=== PATIENT | female | born 1960 | race Caucasian/White ===

== ENCOUNTER → 2025-06-10 | Outpatient (CLI) | payer MEDICARE, OTHER, SELFPAY ==
--- NOTE | 2025-06-10 10:20 | CER_PTH ---
PATIENT: MARGARITO FERNANDEZ LOC: [facility] U#:[id number] AGE/SX: 65/F ROOM: RE06/10/[address]: Dr. Mignon Manzo DO : 1960 BED: DIS: 06/10/2025 SPEC #: [id number] RECD: 06/10/25 12:23 STATUS: EDDIE RUDDY #: [id number] HANSA: 06/10/25 10:[address]: Mignon Manzo DEPT: SURGICAL PATHOLOGY RECD BY: Colin Martinez Tissues: A - Uterine cervix, NOS Procedures: Surgery Specimen Level IV HEADER OPERATION: Polypectomy PRE-OP DIAGNOSIS: Cervical polyp TISSUE SUBMITTED: A- Cervical polyp MICROSCOPIC DIAGNOSIS A. Cervix, polyp, polypectomy: * Benign endocervical polyp. MICROSCOPIC DESCRIPTION Slides are reviewed. GROSS DESCRIPTION A. Received in formalin labeled the patient's name and date of is a 1.3 x 0.3 x 0.3 cm pink-red polypoid portion of tissue admixed with blood-tinged mucoid material and flecks of possible tissue. Entirely submitted in 1 cassette. [place] 06/10/2025 CPT:85068
--- NOTE | 2025-06-10 10:20 | CER_PTH ---
PATIENT: MARGARITO FERNANDEZ LOC: [facility] U#:[id number] AGE/SX: 65/F ROOM: RE06/10/[address]: Dr. Mignon Manzo DO : 1960 BED: DIS: 06/10/2025 SPEC #: [id number] RECD: 06/10/25 12:23 STATUS: EDDIE RUDDY #: [id number] HANSA: 06/10/25 10:[address]: Mignon Manzo DEPT: SURGICAL PATHOLOGY RECD BY: Colin Martinez Tissues: A - Uterine cervix, NOS Procedures: Surgery Specimen Level IV HEADER OPERATION: Polypectomy PRE-OP DIAGNOSIS: Cervical polyp TISSUE SUBMITTED: A- Cervical polyp MICROSCOPIC DIAGNOSIS A. Cervix, polyp, polypectomy: * Benign endocervical polyp. MICROSCOPIC DESCRIPTION Slides are reviewed. GROSS DESCRIPTION A. Received in formalin labeled the patient's name and date of is a 1.3 x 0.3 x 0.3 cm pink-red polypoid portion of tissue admixed with blood-tinged mucoid material and flecks of possible tissue. Entirely submitted in 1 cassette. [place] 06/10/2025 CPT:99220
[2025-06-14 15:09] LABS: HPV APTIMA, High Risk Negative (Negative)
== END | disposition home or self-care (01) ==
PROVIDERS: Visit Provider Obstetrics & Gynecology
DX: N84.1 Polyp of cervix uteri (principal); Z12.4 Encounter for screening for malignant neoplasm of cervix
CPT/HCPCS: 87624; 88175; 88305; G0145

== ENCOUNTER → 2025-06-28 | Outpatient (CLI) | payer MEDICARE, OTHER, SELFPAY ==
--- NOTE | 2025-06-28 16:15 | US_ITS ---
EXAM: US Pelvis Transabdominal and Transvaginal, Complete CLINICAL INDICATION: POLYP TECHNIQUE: Real-time complete transabdominal and transvaginal pelvic ultrasound with image documentation. Transvaginal imaging was used for better evaluation of the endometrium and adnexa. COMPARISON: No relevant prior studies available. FINDINGS: UTERUS/CERVIX: Uterus is anteverted. Multiple calculus in the uterus measuring up to 5 mm. The uterus measures 5.5 x 4.0 x 2.5 cm. The endometrial stripe measures 0.4 cm in thickness. RIGHT OVARY: Unremarkable. Normal blood flow. The right ovary measures 2.8 x 1.6 x 1.1 cm. LEFT OVARY: 4.8 cm left ovarian cyst. Normal blood flow. The left ovary measures 4.0 x 4.3 x 3.3 cm. FREE FLUID: No free fluid. BLADDER: Unremarkable as visualized. Wall is normal thickness for degree of distention. US/Pelvic (Non ) IMPRESSION: 4.8 cm left ovarian cyst. Reading Location: [id number]
--- OUTSIDE RECORDS SUMMARY | 2025-06-28 16:45 | XMS RPT_ITS | CCD ---
Author Organization [facility] Care Team Providers Care Company Accountant Name Role Phone Mireya Abraham PA-C Unavailable [phone] Mireya Abraham PA-C Unavailable [phone] Account Services Coordinator/Gynecology Prov. Unavailable Un available Darryl MOYA, Johanna Haider Unavailable Anna BOTTOM TURNING LATHE TENDER, Carrol Unavailable Hieu MOYA, Speedy Valencia Unavailable Gogoi (scribe), Hemanta Unavailable Unavaila ble Iqbal BOTTOM TURNING LATHE TENDER, Ros Unavailable Unavailable Deborah Lizzy C Unavailable Unavailable Scooby WOOD, Sindhu Unavailable Unavailable Dhruv BOTTOM TURNING LATHE TENDER, Emily Unavailable Unavailable Cristian MATHEW, Celestina Unavailable Berny MATHEW, Racquel Mac Unavailable Unavailable [place] BOTTOM TURNING LATHE TENDER, Darcie K Unavailable Unavai lable Gricelda [employer] HEAD INSPECTOR [employer] ADJUSTER, Chikis Unavailable Unavailable Stephy BOTTOM TURNING LATHE TENDER, Johanna M Unavailable Unavailab le [place] BOTTOM TURNING LATHE TENDER, Christina Ordaz Unavailable Unavailab le Vess BOTTOM TURNING LATHE TENDER, Neilee L Unavailable Unavailable Wengerd BOTTOM TURNING LATHE TENDER, Mignon Unavailable Unavailabl e Unavailable Unavailable Unavailable Unavailable General Surgery Provider Unavailable Unavail able Bryant MEDRANON, Kelly Unavailable Unavailabl Doris Pretty Unavailable Unavailable [facility] Attending Unavailable Doris Mcghee Unavailable Unavailable MIREYA ABRAHAM Consulting Unavailable DENILSON THOMAS Admitting Unavailable DENILSON THOMAS Primary Care Unavailable DENILSON THOMAS Attending Unavailable PROVIDER, UNKNOWN Consulting Unavailable MIREYA ABRAHAM Consulting Unavailable MIREYA ABRAHAM Attending Unavailable MIREYA ABRAHAM Admitting Unavailable MIREYA ABRAHAM Primary Care Unavailable PROVIDER, UNKNOWN Consulting Unavailable MIREYA ABRAHAM Consulting Unavailable MIREYA ABRAHAM Attending Unavailable MIREYA ABRAHAM Admitting Unavailable MIREYA ABRAHAM Primary Care Unavailable PROVIDER, UNKNOWN Consulting Unavailable KRISHNA HECTOR Attending Unavailable MIREYA ABRAHAM Consulting Unavailable MIREYA ABRAHAM Referring Unavailable KRISHNA HECTOR Admitting Unavailable KRISHNA HECTOR Primary Care Unavailable PROVIDER, UNKNOWN Consulting Unavailable Dr. Mignon Manzo DO Attending Physician Mignon Roberts Attending Mignon Hurtado Referring UnavailMireya Robin Primary Care Unavailable Mignon Roberts Attending Unavailabl e Mignon Roberts Attending Unavailabl jennifer Medications Current Medications Medication Drug Class(es) Dates Sig (Normalized) Sig (Original) sertraline 50 mg oral tablet (20 sources) Serotonin Reuptake Inhibitor Start: 06-10-2025 take 1 tablet by mouth once daily Start: 09-26-2024 sertraline 50 mg tablet ; 1.5 tablet(s) daily for 0 days Quantity: 45 {Tablet} Refills: 11 Ordered: 26-Sep-2024 JOSELITO Abraham Start: 26-Sep-2024 Start: 09-21-2023 sertraline 50 mg tablet ; 1.5 tablet(s) daily for 0 days Quantity: 45 {Tablet} Refills: 11 Ordered: 21-Sep-2023 JOSELITO Abraham Start: 21-Sep-2023 Start: 06-17-2023 sertraline 50 mg tablet ; 1.5 tablet(s) daily for 0 days Quantity: 45 {Tablet} Refills: 3 Ordered: 17-Jun-2023 JOSELITO Abraham Start: 17-Jun-2023 Completed/Discontinued Medications Medication Drug Class(es) Dates Sig (Normalized) Sig (Original) amoxicillin 500 mg oral capsule (20 sources) Penicillin-class Antibacterial Start: 09-27-2011 End: 10-07-2011 take 1 capsule by mouth three times daily AMOXICILLIN, 500MG (Oral Capsule) ; 1 Capsule three times daily for 10 days Quantity: 30 {Capsule} Refills: 0 Ordered: 27-Sep-2011 MD Johanna Andrews Start: 27-Sep-2011 End: 07-Oct-2011 Status: Inactive amoxicillin 875 mg / clavulanate 125 mg oral tablet (20 sources) Penicillin-class Antibacterial Start: 11-27-2018 End: 12-11-2018 take 1 tablet by mouth twice daily at mealtime Amoxicillin-Pot Clavulanate 875-125 MG Oral Tablet ; 1 (one) Tablet two times daily with food for 14 days Quantity: 28 {Tablet} Refills: 0 Ordered: 27-Nov-2018 Start: 27-Nov-2018 End: 11-Dec-2018 Status: Inactive azithromycin 250 mg oral tablet (20 sources) Macrolide Antimicrobial Start: 04-28-2015 End: 05-03-2015 AZITHROMYCIN, 250MG (Oral Tablet) ; 2 (two) Tablet today, then 1 tablet daily for 4 days for 5 days Quantity: 6 {Tablet} Refills: 0 Ordered: 28-Apr-2015 MD Johanna Andrews Start: 28-Apr-2015 End: 03-May-2015 Status: Inactive Start: 10-03-2010 End: 07-19-2011 ZITHROMAX Z-PINEDA, 250MG (Oral Tablet) ; 2 (two) Tabs day one, then one daily for 4 days for 0 days Quantity: 1 {Z-pack} Refills: 0 Ordered: 19-Jul-2011 QUINCY Thomas Start: 03-Oct-2010 End: 19-Jul-2011 Status: Inactive calcium citrate 1190 mg / cholecalciferol 0.005 mg oral tablet (20 sources) Vitamin D take 1 tablet by mouth once daily CITRACAL/VITAMIN D, 126-716BI-SHUL (Oral Tablet) ; 1 daily (250-200 MG-UNIT) Status: Inactive Comments: 630mg calcium/500IU vitamin d per two tabs and she takes 1 tab daily Comment on above: 630mg calcium/500IU vitamin d per two tabs and she takes 1 tab daily CENTRUM SILVER (Oral Tablet) (20 sources) take 1 tablet by mouth once daily CENTRUM SILVER (Oral Tablet) ; 1 daily Status: Inactive take 1 tablet by mouth once lorenzo y CENTRUM SILVER (Oral Tablet) ; 1 daily cephalexin 500 mg oral capsule (20 sources) Cephalosporin Antibacterial Start: 06-24-2010 End: 07-04-2010 take 1 capsule by mouth three times daily CEPHALEXIN, 500MG (Oral Capsule) ; 1 Capsule three times daily for 10 days Quantity: 30 {Capsule} Refills: 0 Ordered: 03-Oct-2010 MD Speedy Hagen Start: 24-Jun-2010 End: 04-Jul-2010 Status: Inactive lithium aspartate 20 mg oral capsule (20 sources) take 1 capsule by mouth once daily ESTROVEN ENERGY (Oral Capsule) ; 1 daily Status: Inactive metroNIDAZOLE 500 mg oral tablet (20 sources) Nitroimidazole Antimicrobial Start: 10-25-2018 End: 11-01-2018 take 1 tablet by mouth twice daily Flagyl 500 MG Oral Tablet ; 1 (one) Tablet BID for 7 days Quantity: 14 {Tablet} Refills: 0 Ordered: 25-Oct-2018 EARNESTINE Iqbal Start: 25-Oct-2018 End: 01-Nov-2018 Status: Inactive ondansetron 4 mg oral tablet (20 sources) Serotonin-3 Receptor Antagonist Start: 08-20-2013 End: 10-30-2013 take 1 tablet by mouth every six hours as needed ONDANSETRON HCL, 4MG (Oral Tablet) ; 1 (one) Tablet every six hours, as needed for 0 days Quantity: 20 {Tablet} Refills: 0 Ordered: 30-Oct-2013 QUINCY Thomas Start: 20-Aug-2013 End: 30-Oct-2013 Status: Inactive Comments: Medication taken as needed. for nausea Comment on above: Medication taken as needed. for nausea raNITIdine 75 mg oral tablet (20 sources) Histamine-2 Receptor Antagonist take 1 tablet by mouth once daily as needed ZANTAC 75, 75MG (Oral Tablet) ; 1 daily as needed (75 MG) Status: Inactive Comments: Medication taken as needed. usually uses if eats dinner later in the evening Comment on above: Medication taken as needed. usually uses if eats dinner later in the evening vitamin b6 200 mg oral tablet (20 sources) take 1 tablet by mouth once daily Vitamin B6 200 MG Oral Tablet ; 1 daily (200 MG) Status: Inactive Problems Active Problems Problem Classification Problem Date Documented Da te Episodic/Chronic Abdominal pain (2 sources) Unspecified abdominal pain; Translations: [Unspecified abdominal pain] Onset: 04-29-2025 Episodic Acute bronchitis (20 sources) Acute bacterial bronchitis; Translations: [Acute bronchitis due to other specified organisms] 04-28-2015 Episodic Adjustment disorders (20 sources) Stress; Translations: [Reaction to severe stress, unspecified] 03-22-2013 Chronic Allergic reactions (1 source) Allergic condition; Translations: [Allergy, unspecified, initial encounter] 06-10-2025 Episodic Anxiety disorders (20 sources) Anxiety; Translations: [Anxiety disorder, unspecified] 02-15-2022 Chronic Conditions associated with dizziness or vertigo (1 source) Benign paroxysmal vertigo, right ear; Translations: [Benign paroxysmal vertigo, right ear] Onset: 04-29-2025 Episodic Disorders of lipid metabolism (20 sources) Hyperlipidemia; Translations: [Hyperlipidemia, unspecified] 06-17-2023 Chronic Esophageal disorders (20 sources) Esophageal reflux; Translations: [Gastroesophageal reflux disease] 11-27-2018 Chronic Essential hypertension (20 sources) Hypertensive disorder; Translations: [Essential (primary) hypertension] 06-17-2023 Chronic Immunizations and screening for infectious disease (20 sources) Immunization due; Translations: [Encounter for immunization] 07-04-2024 Episodic Other bone disease and musculoskeletal deformities (20 sources) Osteopenia; Translations: [Other specified disorders of bone density and structure, unspecified site] 02-15-2022 Episodic Other circulatory disease (20 sources) Elevated blood pressure reading without diagnosis of hypertension 12-21-2012 Episodic Other ear and sense organ disorders (20 sources) Impacted cerumen of bilateral ears; Translations: [Impacted cerumen, bilateral] 10-23-2020 Episodic Other female genital disorders (20 sources) Polyp of cervix; Translations: [Polyp of cervix uteri] 02-15-2022 Episodic Other female genital disorders (20 sources) Vaginal discharge; Translations: [Other specified noninflammatory disorders of vagina] 11-27-2018 Episodic Other female genital disorders (20 sources) Hypertrophy of ovary; Translations: [Other noninflammatory disorders of ovary, fallopian tube and broad ligament] 10-30-2013 Episodic Other female genital disorders (1 source) Polyp of cervix uteri; Translations: [Polyp of cervix uteri] Onset: 06-25-2025 Episodic Other gastrointestinal disorders (20 sources) Occult blood in stools; Translations: [Other fecal abnormalities] 10-05-2023 Episodic Other screening for suspected conditions (not mental disorders or infectious disease) (20 sources) Patient encounter status; Translations: [Encounter for other screening for malignant neoplasm of breast] Onset: 06-17-2025 10-23-2020 Episodic Other upper respiratory disease (20 sources) Allergic rhinitis; Translations: [Allergic rhinitis, unspecified] 10-16-2018 Chronic Other upper respiratory infections (20 sources) Sinusitis; Translations: [Chronic sinusitis, unspecified] 10-23-2020 Chronic Other upper respiratory infections (20 sources) Acute pharyngitis; Translations: [Acute pharyngitis, unspecified] 08-20-2013 Episodic Ovarian cyst (7 sources) Unspecified ovarian cyst, unspecified side; Translations: [Unspecified ovarian cyst, left side] Onset: 04-29-2025 Episodic Comment on above: however, ultrasound unsure if this is of ovarian origin- MRI ordered. Residual codes; unclassified (20 sources) Body mass index 20-24 - normal; Translations: [Body mass index (BMI) 21.0-21.9, adult] 10-16-2018 Episodic Residual codes; unclassified (20 sources) Insomnia; Translations: [Insomnia, unspecified] 10-30-2013 Episodic Unclassified (20 sources) Number of Children 11-18-2017 Comment on above: 3. Unclassified (20 sources) Number of Pregnancies 11-18-2017 Comment on above: 4. Unclassified (20 sources) Vaginal deliveries 11-18-2017 Comment on above: 3. Unclassified (10 sources) Follow up for multiple chronic conditions - The patient is here for follow-up of anxiety, hyperlipidemia and hypertension. The patient always takes the prescribed medications. No side effects noted. The patient engages in regular exercise program 3-5 times per week. The patient's out of office blood pressure checks occur occasionally and dietary compliance is fairly good usually adhering to recommendations. The patient states that there is no recent angina or dyspnea, there are no vision changes or weakness, weight is unchanged, mood is unchanged and they do not have headaches. 10-26-2018 Unclassified (10 sources) [ADDITIONAL REASON] Well adult female - The patient feels well with no complaints, has good energy level and is sleeping poorly. The patient has a balanced diet and takes supplemental vitamins. The patient exercises every other day. The patient sleeps 7 hours per night. 10-26-2018 Unclassified (20 sources) Follow up for multiple chronic conditions - The patient is here for follow-up of hyperlipidemia, arthritis and other condition(s) (anxiety). The patient always takes the prescribed medications. No side effects noted. The patient engages in regular exercise program 3-5 times per week. The patient's out of office blood pressure checks occur frequently (114/74, 122/75, usually in the 110's to 130's systolic ). Note for Multiple chronic conditions follow-up": Patient reports feeling sick since this spring. When symptoms first occurred, patient thought it was seasonal allergies due to having a runny nose and sneezing. Will worsen at times. Reports having chills on 04/19/15 and 04/20/15 that made it hard for her to wear clothing, did not take her temp but thinks she was running a fever at that time. Patient's grandson had pinkeye about 2 weeks ago. Patient began to have crusty drainage, reddened scleras and was prescribed Tobramycin 0.3% eye drops. Continues to have some crusty drainage and was present this morning (mild, improved).Has been exposed to laryngitis. She was prescribed Augmentin for 10 days on 03/17/15. [place] a little better after treatment. Continues to have soreness and tenderness of the neck and ear pain, her ears are tender all the time, headache, sore throat, and a productive cough (from PND in throat; no wheeze or chest congestion). No nasal congestion. Has had runny nose. No sinus pressure.Has been taking OTC cold medication and Advil as well. Does tend to get allergies spring/fall. 04-28-2015 Unclassified (20 sources) Follow up for multiple chronic conditions - The patient is here for follow-up of hyperlipidemia and other condition(s) (anxiety). The patient always takes the prescribed medications. No side effects noted. The patient engages in regular exercise program 3-5 times per week (training for a 5K in May). The patient's out of office blood pressure checks occur frequently (117-120/73-77). Note for "Multiple chronic conditions follow-up": Patient states she is doing really well and has no concerns. 04-22-2014 Unclassified (20 sources) Follow up for multiple chronic conditions - The patient is here for follow-up of other condition(s) (elevated blood pressure, osteoporosis, anxiety). The patient always takes the prescribed medications. No side effects noted. The patient has an active lifestyle but no regular exercise program (slacked off in her routine exercise lately). Note for "Multiple chronic conditions follow-up": -Sertaline making big difference in her mood. She does have "sleepy times" mid morning and afternoon but they do go away. Sleeping better at night. 12-21-2012 Unclassified (13 sources) Well adult female - The patient feels well with no complaints, has good energy level and is sleeping poorly. The patient has a balanced diet and takes supplemental vitamins. The patient exercises every other day. The patient sleeps 7 hours per night. 10-26-2018 Unclassified (13 sources) [ADDITIONAL REASON] Follow up for multiple chronic conditions - The patient is here for follow-up of anxiety, hyperlipidemia and hypertension. The patient always takes the prescribed medications. No side effects noted. The patient engages in regular exercise program 3-5 times per week. The patient's out of office blood pressure checks occur occasionally and dietary compliance is fairly good usually adhering to recommendations. The patient states that there is no recent angina or dyspnea, there are no vision changes or weakness, weight is unchanged, mood is unchanged and they do not have headaches. 10-26-2018 Viral infection (20 sources) Viral disease; Translations: [Viral infection, unspecified] 08-20-2013 Episodic Past or Other Problems Problem Classification Problem Date Documented Da te Episodic/Chronic Unclassified (20 sources) Well adult female - The patient feels well with minor complaints. The patient is not using any method of contraception at this time. The patient has a balanced diet. The patient exercises every other day. The patient sleeps 7 hours per night. Note for "Well adult female": No concerns today. 02-15-2022 Unclassified (20 sources) Well adult female - The patient feels well with minor complaints (wax in her ears), has good energy level and is sleeping well. The patient has a balanced diet and takes supplemental vitamins. The patient exercises 3 - 4 times per week (6 days). The patient sleeps 8 hours per night. 10-23-2020 Unclassified (20 sources) Cold Symptoms - Symptoms include nasal congestion, ear pain (bilateral, left side is worse), sore throat, fever and headache, but do not include runny nose, dry cough or productive cough. The onset was gradual 6 week(s) ago. The symptoms occur constantly. The patient describes this as moderate in severity and unchanged. Current treatment includes NSAIDs. Note for "Upper respiratory infection": Has been sick most of the winter. 11-27-2018 Unclassified (20 sources) Well Adult, female - The patient feels well with no complaints, has good energy level and is sleeping well. The current method of contraception is: tubal ligation. The patient has a balanced diet and takes supplemental vitamins. The patient exercises 3 - 4 times per week. The patient sleeps 7 hours per night. Note for "Well Adult, female": No concerns today.Mood has been really good. 11-18-2017 Unclassified (20 sources) Well adult female - The patient feels well with no complaints, has good energy level and is sleeping well. The patient is not using any method of contraception at this time. The patient has a balanced diet and takes supplemental vitamins. The patient exercises weekly. The patient sleeps 6 hours per night. Note for "Well adult female": Weight gain is 10 pounds over the past year.Monitors BP occasionally and it is normal. 11-17-2016 Unclassified (20 sources) Well adult female - The patient feels well with no complaints, has good energy level and is sleeping well. The patient has a balanced diet and takes supplemental vitamins. The patient exercises daily. The patient sleeps 8 hours per night. Note for "Well adult female": -Has mammogram later today. reviewed by duy 10-28-2015 Unclassified (20 sources) Well adult female - The patient feels well with no complaints, has good energy level and is sleeping well. The patient has a balanced diet and takes supplemental vitamins. The patient exercises daily (21 day fix program since Sep). Note for "Well adult female": reviewed by duy 11-01-2014 Unclassified (20 sources) Well adult female - The patient feels well with no complaints, has good energy level and is sleeping well. The patient has a balanced diet and takes supplemental vitamins. The patient exercises 3 - 4 times per week (brought a log of her workouts; is planning to walk the [employer] [place] this coming fall). 10-30-2013 Unclassified (20 sources) Sore Throat - The onset of the sore throat has been acute and has been occurring for 1 day. Symptoms include sore throat, fever and cough (slight), but do not include headache, runny nose, nasal congestion or ear pain. Note for "Sore throat": feels very weak; has not been able to eat or drink much today; no nausea or vomitting, but is noting an upset stomach now. Is achy all over.Was fine this weekend, but this AM woke up with ANDRES and throat hurt. Symptoms worsened thru the day (weaker, upset stomach). Was exposed to grandkids who were ill (earache, sore throat, no fever). Ate a chicken sandwich Sat that didn't taste good. 08-20-2013 Unclassified (20 sources) talk - Here to talk to some situational stressors that are causing her anxiety. 07-27-2013 Unclassified (20 sources) stress - Here today to discuss whether or not it is time to resign from her job. Cites instances of "getting written up" for things she has always done in the past. Feels they want her to leave and are making it difficult for her so she will resign. Family wants her to resign. Causing increased anxiety. reviewed by duy 03-22-2013 Unclassified (20 sources) concerns about elevated blood pressure - patient feels like her heart is racing all the time, she has many stressors and feels like she is going to explode. She was here earlier today feeling this way with a pulse of only 85. Her symptoms have been occurring for 3 months, her has mentioned starting medication for anxiety or depression but she is afraid to take medicine and concerned she will only be masking the problem rather than solving it. reviewed by duy 11-24-2012 Unclassified (20 sources) Well Adult, female - The patient feels well with minor complaints (has several moles she wants you to look at), has good energy level and is sleeping well. Date of last mammogram : (appt for mammo on tuesday). The patient has a balanced diet and takes no supplemental vitamins & iron (takes calcium). The patient exercises 3 - 4 times per week. The patient sleeps 6 hours per night. Note for "Well Adult, female": reviewed by DUY 08-04-2012 Unclassified (20 sources) Cold Symptoms - Symptoms include ear pain (right is worse), sore throat (since [place] and has not gotten better.), general malaise (is achey all over), headache and facial pain, but do not include nasal congestion, runny nose, dry cough or fever. The onset was sudden 2 week(s) ago (but did have a cold [place] and s/t has never went away). The symptoms occur constantly. The patient describes this as moderate in severity and worsening. Current treatment includes NSAIDs. The patient has been exposed to an individual with similar symptoms. 09-27-2011 Unclassified (20 sources) Well Adult, female - The patient feels well with minor complaints (minor leg restlessness some evenings), has good energy level and is sleeping well. The patient has a balanced diet and takes supplemental vitamins. Patient exercises 3 - 4 times per week. Note for "Well Adult, female": Pt has no concerns today. 07-19-2011 Unclassified (20 sources) Cold Symptoms - Symptoms include runny nose, ear pain (bilateral), sore throat, productive cough, general malaise and headache, but do not include fever. The onset was sudden 5 day(s) ago. The symptoms occur constantly. The patient describes this as moderate in severity. Current treatment includes NSAIDs. The patient has been exposed to an individual with a cough. 10-03-2010 Unclassified (20 sources) Ear pain - The onset of the pain has been acute and has been occurring in a persistent pattern for 3 weeks. The course has been increasing. The pain is described as a moderate dull aching. The pain is described as being located in the inner ear. The pain is felt in the left ear. The symptoms have been associated with sore throat, while the symptoms have not been associated with fever. Note for "Ear pain": body aches and ANDRES. 06-24-2010 Unclassified (20 sources) MCR Well Adult - In general the patient feels well with no complaints, has good energy level and is sleeping well. The patient has a balanced diet and takes no supplemental vitamins & iron. The patient exercises weekly (2-3) and sleeps 7 hours per night. The patient denies having trouble with bathing, dressing/grooming, toileting, preparing meals and ambulating. The patient denies having trouble with grocery shopping, driving, use of telephone, housework, laundry, preparing/taking medications and finances. The patient performs monthly self breast exam. 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 09-21-2023 Unclassified (8 sources) MCR Well Adult - In general the patient feels well with no complaints, has good energy level and is sleeping well. The patient has a balanced diet. The patient exercises 3 - 4 times per week and sleeps 7 hours per night. The patient denies having trouble with bathing, dressing/grooming, toileting, preparing meals and ambulating. The patient denies having trouble with grocery shopping, driving, use of telephone, housework, laundry, preparing/taking medications and finances. The patient performs monthly self breast exam. 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 09-26-2024 Results Test Name Value Interpretation Reference Range Facility PAP IG HPV APTIMA 16/18,45on 06-14-2025 ADEQ Comment Normal . [facility] Comment on above: Order Comment: Speci men Comment: [id number] Specimen Comment: No. of containers..01 ThinPrep Vial Result Comment: Sati sfactory for evaluation. Endocervical and/or squamous metaplastic cells (endocervical component) are present. Performed By: #### L 7400.0280 #### [facility] [address] [place], [address] COMM . Normal . [facility] Comment on above: Order Comment: Speci men Comment: [id number] Specimen Comment: No. of containers..01 ThinPrep Vial Performed By: #### L 7400.0280 #### [facility] [address] [place], [place], [id number] COMMENT Comment Normal . [facility] Comment on above: Order Comment: Speci men Comment: [id number] Specimen Comment: No. of containers..01 ThinPrep Vial Result Comment: This liquid based ThinPrep(R) pap test was screened with the use of an image guided system. Performed By: #### L 7400.0280 #### [facility] [address] [place], [place], [id number] DIAG Comment Normal . [facility] Comment on above: Order Comment: Speci men Comment: [id number] Specimen Comment: No. of containers..01 ThinPrep Vial Result Comment: NEGA TIVE FOR INTRAEPITHELIAL LESION OR MALIGNANCY. CELLULAR CHANGES ASSOCIATED WITH ATROPHY ARE PRESENT. Performed By: #### L 7400.0280 #### [facility] [address] [place], [place], [address] [phone] HPV APTIMA, HR Negative Normal Negative [facility] Comment on above: Order Comment: Speci men Comment: [id number] Specimen Comment: No. of containers..01 ThinPrep Vial Result Comment: This nucleic acid amplification test detects fourteen high- risk HPV types (16,18,31,33,35,39,45,51,52,56,58,59,66,68) without differentiation. Performed By: #### L 7400.0280 #### [facility] [address] [place], [place], [id number] HPV Halie Rfx Comment Normal . [facility] Comment on above: Order Comment: Speci men Comment: [id number] Specimen Comment: No. of containers..01 ThinPrep Vial Result Comment: Crit eria not met, HPV Genotype not performed. Performed at: - [facility] [id number] Tower Dragline Operator: Maria R Harrison MD, Phone: [phone] Performed at: =G - [facility] [address] [id number] Tower Dragline Operator: Maria R Harrison MD, Phone: [phone] Performed By: #### L 7400.0280 #### [facility] [address] [place], [place], [id number] PAPSMR Comment Normal . [facility] Comment on above: Order Comment: Speci men Comment: [id number] Specimen Comment: No. of containers..01 ThinPrep Vial Result Comment: The Pap smear is a screening test designed to aid in the detection of premalignant and malignant conditions of the uterine cervix. It is not a diagnostic procedure and should not be used as the sole means of detecting cervical cancer. Both false-positive and false-negative reports do occur. Performed By: #### L 7400.0280 #### [facility] [address] [place], [address] PERFORM Comment Normal . [facility] Comment on above: Order Comment: Speci men Comment: [id number] Specimen Comment: No. of containers..01 ThinPrep Vial Result Comment: Igor Lopez Prop Drawer (ASCP) Performed By: #### L 7400.0280 #### [facility] [address] [place], [place], [address] Shoe Maker Office Visit Reporton 06-10-2025 Shoe Maker Office Visit Report [facility] [address], [address] [place] [address] OFFICE VISIT Date of Service: 06/10/25 MR#: [id number] Acct: [id number] Name: BONITA FERNANDEZ Rep #: [id number] : 1960 Provider: Dr. Mignon Velázquez DO Age/Sex: 65/F Location: [facility] Status: Signed Intake Vital Signs 06/10/25 10:04 Height 5 ft 2 in Weight: 110 lb 8 oz BMI 20.2 BP 148/90 H Intake Visit Reasons: Ovarian Cysts (JEWELL) Gang Tailer Required: No Is patient in pain?: No Allergies No Known Allergies Allergy (Unverified 06/10/25 09:56) Medications ???Medication ???Instructions ???Recorded ???Confirmed ???Type sertraline 50 mg tablet (Zoloft) 50 mg PO QDAY 06/10/25 06/10/25 Hi story Is last menstrual period known: No Post menopausal: Yes Patient : No : No PFSH Medical History (Updated 06/10/25 @ 10:[address] Mignon Manzo DO) Cervical polyp Anxiety Hyperlipidemia Osteopenia GERD (gastroesophageal reflux disease) Hypertension Allergies Surgical History (Updated 06/10/25 @ 10:07 by Doris Ogden) Fatty tumor S/P colonoscopy S/P tubal ligation Family History (Updated 06/10/25 @ 09:59 by Doris Ogden) Father Diabetes Heart disease CVA (cerebral vascular accident) Hypertension Grandmother Diabetes Uncle Diabetes Heart disease CVA (cerebral vascular accident) Grandfather CVA (cerebral vascular accident) Mother Hypertension Other Hodgkins lymphoma Social History (Updated 06/10/25 @ 10:04 by Doris Ogden) Smoking Status: Never smoker alcohol intake: never substance use type: does not use caffeine: Yes what type of physical activity do you participate in: walking and aerobics frequency: 3-4 times per week additional social history: -[facility] Ovarian Cysts (JEWELL) Details: BONITA FERNANDEZ is a 65 year old who presents for follow up ER visit at [facility] on may 31. She was mowing her lawn and felt sick. She then proceeded to vomit multiple times and her brought her to the ER where the only thing they could find was a small cyst on her liver and a 4 cm cystic structure posterior to the uterus of unknown origin. The endometrium is 5.2 mm with trace fluid. She denies bleeding or cramping. She has no discomfort. She can not remember when her last pap was. She is a new patient to our office and our hospital system. She states that she is feeling well now and recently had a colonoscopy that was normal. She thinks that this was all due to food poisoning from a ham that was frozen since then thawed for a week before eating. History 4 Elective abortions Hx Para 3 Spontaneous abortions Hx # Term Pregnancies Ectopic pregnancies Hx # Pregnancies Multiple births # of living children 3 Past Pregnancies Del. Date Name GA/Weeks Outcome Route Bth Weight Gen Labor Lgth Anesthesia Del Locatn Provider FOB Unknown Mignon Unknown Johanna Unknown Dennise ROS Const ROS Unobtainable: All systems reviewed are unremarkable except as noted in H Resp Resp: Reports system reviewed and no additional complaints, except as documented; Denies cough GI GI: Reports as per HPI Psych Psych: Reports system reviewed and no additional complaints, except as documented Exam Const General: cooperative, healthy appearing, comfortable and no acute distress Resp Effort Inspection: normal respiratory effort General: bimanual renal exam normal bilaterally External Female Exam: normal appearance of the urethra Urethra: normal appearance of the urethra Speculum Exam - Vagina: normal appearance of the vagina Speculum Exam - Cervix: mass pedunculated (looks polyp like ) Bimanual Exam- Adnexa, other: normal adnexae and normal Pelvic Support: normal Skin General: no rashes or lesions noted Psych Appearance: grossly normal Speech and Movement: speech and movement normal Office Procedures Biopsy Provider Documentation A cervical polyp was identified and cleansed with betadine. The polyp was grasped with a long thomas forceps device and spun until the polyp fell off. This was placed in a specimen container. No bleeding was noted. Alert Amy Yes Coding Level of Care Code Off vis,new,level 4 Diagnoses Ovarian cystic mass N83.209 Assessment and Plan Assessment and Plan (1) Ovarian cystic mass: Status: Acute Comment: however, ultrasound unsure if this is of ovarian origin- MRI ordered. Orders: Orders Biopsy Today N84.1 - Polyp of cervix uteri Plan plan to call patient with pathology of the polyp and pap done today ordering MRI to know more about the cystic pelvic structure. She denies complaints of pain or discomfo (more content not included)... Normal [facility] Surgery Specimen Level Jesi 06-10-2025 Surgery Specimen Level IV Patient Age/Sex Location Account Attending Physician BONITA FERNANDEZ 65/F [facility] [id number] Almita Joe Specimen: [id number] Received: 06/10/25 Status: EDDIE Ng Num: [id number] Spec Type: CERV Subm Dr: Dr. Mignon Manzo DO [facility] [place] OPERATION: Polypectomy PRE-OP DIAGNOSIS: Cervical polyp TISSUE SUBMITTED: A- Cervical polyp MICROSCOPIC DIAGNOSIS A. Cervix, "polyp", polypectomy: * Benign endocervical polyp. MICROSCOPIC DESCRIPTION Slides are reviewed. GROSS DESCRIPTION A. Received in formalin labeled the patient's name and date of is a 1.3 x 0.3 x 0.3 cm pink-red polypoid portion of tissue admixed with blood-tinged mucoid material and flecks of possible tissue. Entirely submitted in 1 cassette. [place] 06/10/2025 CPT:86296 Patient Age/Sex Location Account Attending Physician BONITA FERNANDEZ / [facility] [id number] Almita Joe Signed (signature on file) Dr. Kerry Chavez MD 06/19/25 1638 Normal [facility] Comment on above: Performed By: #### P SUIV #### [facility] [address] [place], [address] OPERATIVE PROCEDURES 05-30 OPERATIVE PROCEDURES [facility] OPERATIVE REPORT NAME ACCOUNT SEX AGE ADMIT DISCHARGE PT MED. RECORD# NUMBER DATE DATE TYPE BONITA FERNANDEZ [id number] F 65 05/29/25 2 S [id number] ROOM: [facility] DATE OF : 1960 DICTATING PHYSICIAN: Denilson Thomas DATE OF SURGERY: May 29, 2025 SURGEON: Denilson Thomas MD CORNICE MAKER: ANESTHESIOLOGIST: Kings Znuiga CRNA ANESTHETIC: PREOPERATIVE DIAGNOSIS: POSTOPERATIVE DIAGNOSIS: Screening colonoscopy, hemorrhoids, and rule out colitis. OPERATION PERFORMED: Colonoscopy with biopsy. COMPLICATIONS: ESTIMATED BLOOD LOSS: Minimal. SPECIMEN: Biopsy at 60 cm sent to Pathology. DISPOSITION: Stable, to recovery. INDICATIONS: Bonita Fernandez is a 65-year-old lady who presents for screening endoscopy. She had a history of a guaiac card which was positive. DESCRIPTION OF OPERATION: After informed consent and intravenous fluids, she was brought to endoscopy and placed on a padded gurney in the left lateral decubitus position with adequate padding at pressure points, and time-out verification was done. She was given sedation per Anesthesia with monitoring throughout. Digital examination showed external hemorrhoidal tags, normal tone, small internal tags and no discrete mass. The Olympus [id number] flexible colonoscope was introduced through the anal verge and carefully advanced, protecting the surrounding mucosa. The scope was advanced through the rectal vault and then through the sigmoid colon, Page 1 of 2 BONITA FERNANDEZ S Operative Report BONITA FERNANDEZ : 1960 which was very tortuous. There were a few scattered diverticula. The scope was advanced through the descending colon eventually, beyond the splenic flexure, transverse colon, hepatic flexure, and ascending colon toward the ileocecal junction. The passage was rather difficult because the colon was rather patulous and floppy and required repeated repositioning, irrigation and suctioning in a [id number] movement. The ileocecal area was viewed, and the landmarks were noted and documented. The prep was fair. With copious irrigation and suctioning the view improved. The ascending, transverse, descending and sigmoid colon were all carefully viewed. It should be noted that in the transverse, descending and sigmoid colon there were some areas of mild erythema. Biopsies were obtained with cold grasp forceps using standard technique at 60 cm to rule out colitis. The scope was carefully withdrawn through the sigmoid and into the rectal vault, retroflexed, rotated, straightened out, and withdrawn with decompression. There were internal and external hemorrhoids, but there was no tear, no fissure, and no fungating mass. No angiodysplasia. The polyps were seen. The patient tolerated the procedure well. She was awakened and sent to the recovery room in good condition. The case will be discussed with the patient when she is more awake and alert. Pathology will be followed as an outpatient by my office. Dictated By: Denilson Thomas MD 05/29/25 10:59 JOB #: [id number] Transcribed By: ludmila 05/29/25 11:21 Electronically signed by: E-Sign Dr. Denilson Thomas MD 05/30/25 16:59 Page 2 of 2 FERNANDEZ, BONITA S Operative Report Normal [facility] US PELVICon 05-17-[address] [address] Patient: BONITA FERNANDEZ Phone#: : 1960 Age: 65 Gender: F Pt. Type: Out Account: [id number] Location: 052 Ordering: MIREYA ABRAHAM Exam Date: 05/17/2025/7:55 Family Phys: Charge Code: 850720 Physician: Sullivan Order #: [id number] Dose#: PROCEDURE: PELVIC ULTRASOUND, TRANSABDOMINAL ENDOVAGINAL COMPARISON: [facility], CT, ABDOMEN/PELVIS W CON, 04/29/2025, 20:45. INDICATIONS: Ovarian cyst. TECHNIQUE: Pelvic ultrasound using transabdominal and endovaginal technique. FINDINGS: UTERUS: Size is 4.1 x 3.9 x 2.4 cm with unremarkable appearance. Endometrial thickness is 5.2 mm. Fluid is present in the endometrial canal ADNEXAE: The ovaries are difficult to visualize due to interfering bowel gas. There is a midline cystic structure measuring 4.1 x 2.8 x 4.7 centimeters. Origin cannot be determined with certainty. CUL-DE-SAC: Normal. No fluid or mass. OTHER: Negative. CONCLUSION: 1. Midline cystic structure posterior to the uterus with greatest dimension of 4.7 centimeters. Origin is difficult to determine with certainty. 2. Fluid is present in the endometrial canal. Dictated by: Eli Lou MD on 05/17/2025 at 10:50 Approved by: Eli Lou MD on 05/17/2025 at 10:56 Normal [facility] PELVIC ENDO VAGINALon [facility] ENDO VAGINAL [address] [address] Patient: BONITA FERNANDEZ Phone#: : 1960 Age: 65 Gender: F Pt. Type: Out Account: [id number] Location: 052 Ordering: MIREYA ABRAHAM Exam Date: 05/17/2025/7:55 Family Phys: Charge Code: [id number] Physician: Sullivan Order #: [id number] Dose#: PROCEDURE: PELVIC ULTRASOUND, TRANSABDOMINAL ENDOVAGINAL COMPARISON: [facility], CT, ABDOMEN/PELVIS W CON, 04/29/2025, 20:45. INDICATIONS: Ovarian cyst. TECHNIQUE: Pelvic ultrasound using transabdominal and endovaginal technique. FINDINGS: UTERUS: Size is 4.1 x 3.9 x 2.4 cm with unremarkable appearance. Endometrial thickness is 5.2 mm. Fluid is present in the endometrial canal ADNEXAE: The ovaries are difficult to visualize due to interfering bowel gas. There is a midline cystic structure measuring 4.1 x 2.8 x 4.7 centimeters. Origin cannot be determined with certainty. CUL-DE-SAC: Normal. No fluid or mass. OTHER: Negative. CONCLUSION: 1. Midline cystic structure posterior to the uterus with greatest dimension of 4.7 centimeters. Origin is difficult to determine with certainty. 2. Fluid is present in the endometrial canal. Dictated by: Eli Lou MD on 05/17/2025 at 10:50 Approved by: Eli Lou MD on 05/17/2025 at 10:56 Normal [facility] ED MED ADMINISTRATION DETAIL on 04-30-2025 ED MED ADMINISTRATION DETAIL Decommissioning Well Site Manager - BONITA FERNANDEZ, : 1960, , Medication Administration Record [address] [address] [id number] 04/29/2025 Patient: BONITA FERNANDEZ Sex: Female : 1960 Age: 65y MEASUREMENTS: Wt: 52.2 kg, Ht/Adrian: 62.0 in, BMI: 21.03 ALLERGIES: No known drug allergies Medication Ordered Medication Administration Date/Time IV NS 0.9 % 1000 19:50 04/29 IV NS 0.9 % 1000 mL started in bag#1 1000 mL at Started mL at 500 mL/hr 500 mL/hr via Site# 1. Allergies verified and confirmed 5 rights. IV 19:50 04/29/2025 (NOW x1) patency established. IV site checked: no pain, redness, or swelling. Stephanie Doty R.N. IV flushed thoroughly pre-medication administration. Information Stopped reviewed with patient including reason for taking this medication, 20:32 04/29/2025 signs of allergic reaction and precautions. Verbalizes Edd Palmer R.N. understanding. - 19:50 Stephanie Doty R.N. Scanned 20:32 04/29 Medication Discontinued: bag #1 completed. Total amount infused: 1000 mL. IV patency established. IV site checked: no pain, redness, or swelling. IV flushed thoroughly post-medication administration. - 20:32 Edd Palmer R.N. Zofran IVP 4 mg 19:48 04/29 Zofran IVP 4 mg given via Site# 1. Allergies verified Given (NOW x1) and confirmed 5 rights. IV patency established. IV site checked: no 19:48 04/29/2025 pain, redness, or swelling. IV flushed thoroughly pre-medication Stephanie Doty R.N. administration. IVP given by nurse practitioner. Information Scanned reviewed with patient including reason for taking this medication, signs of allergic reaction and precautions. Verbalizes understanding. - 19:48 Stephanie Doty R.N. 1 of 2 Decommissioning Well Site Manager - BONITA FERNANDEZ, : 1960, , Medication Ordered Medication Administration Date/Time LORazepam 19:59 04/29 LORazepam (Ativan) IVP 1 mg given via Site# 1. Given (Ativan) IVP 1 mg Allergies verified and confirmed 5 rights. IV patency established. IV 19:59 04/29/2025 (NOW x1) site checked: no pain, redness, or swelling. IV flushed thoroughly Stephanie Doty R.N. pre-medication administration. Information reviewed with patient Scanned and spouse including reason for taking this medication, signs of allergic reaction and precautions. Verbalizes understanding. Medication Wastage: 1 mg wasted. - 20:01 Stephanie Doty R.N. IV NS 0.9 % 1000 21:29 04/29 IV NS 0.9 % 1000 mL started in bag#2 1000 mL at Started mL at 500 mL/hr 500 mL/hr via Site# 1. Allergies verified and confirmed 5 rights. Via 21:29 04/29/2025 (NOW x1) dial-a-flow. IV patency established. IV site checked: no pain, Edd Palmer R.N. redness, or swelling. IV flushed thoroughly pre-medication Stopped administration. Information reviewed with patient including reason 23:22 04/29/2025 for taking this medication. Verbalizes understanding. - 21:30 Domingo Quiñonez R.N. Scanned 23:22 04/29 Medication Discontinued: bag #2. Total amount infused: 1000 mL. IV patency established. IV site checked: no pain, redness, or swelling. IV flushed thoroughly post-medication administration. - 23:52 Edd Palmer R.N. Meclizine (Antivert) 22:12 04/29 Meclizine (Antivert) PO 25 mg given. Allergies verified Given PO 25 mg (NOW x1) and confirmed 5 rights. Information reviewed with patient including 22:12 04/29/2025 reason for taking this medication. Verbalizes understanding. - Edd Palmer R.N. 22:13 Edd Palmer R.N. Scanned 2 of 2 Normal [facility] ED NURSES CLINICAL NOTEon ED NURSES CLINICAL NOTE Nurse Narrative - BONITA FERNANDEZ, : 1960, , Nurse Clinical Narrative [address] [address] [id number] 04/29/2025 19:32:00 Patient: BONITA FERNANDEZ Sex: Female : 1960 Age: 65y Disposition: Discharge to Home Disposition Decision Time: 23:07 04/29/2025 Departure Time: 23:04/29/2025 TRIAGE Arrived by private vehicle. Historian: (patient). Accompanied by family. Primary physician (Mireya Abraham). Triage time: 19:32 04/29/2025. Acuity: LEVEL 3. Chief Complaint: NAUSEA and VOMITING. This started today. 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 The patient has had nausea and vomiting. No diarrhea, constipation, abdominal pain or fever. -- 19:47 04/29/25 ADELAT Stephanie Doty R.N. 19:41 04/29/25. SEPSIS SCREEN: NEGATIVE. SIRS criteria negative: heart rate greater than 90. No possible sources of infection. -- 19:51 04/29/25 ADELAT Stephanie Doty R.N. 19:44 04/29/25. BP: 122/74 MAP: 90. HR: 106. RR: 24. O2 saturation: 100% Temperature: 97.5 F (temporal). Pain level now 0/10. -- 19:44 04/29/25 ADELAT Stephanie Doty R.N. Measurements: 19:44 04/29/25 Wt: 52.2 kg, Ht/Adrian: 62.0 in, BMI: 21.03 -- 19:44 04/29/25 ADELAT Stephanie Doty R.N. Medications: sertraline 50 mg tablet -- 19:56 04/29/25 ADELAT Stephanie Doty R.N. 1 of 4 Nurse Narrative - FERNANDEZ BONITA, : 1960, , Allergies: no known drug allergies -- 19:42 04/29/25 ADELAT Stephanie Doty R.N. Problems: no known problem -- 19:42 04/29/25 ADELAT Stephanie Doty R.N. Surgeries: no known surgical history -- 19:42 04/29/25 ADELAT Stephanie Doty R.N. History 19:32 04/29/25. SOCIAL HX: Never smoker. No alcohol use or drug use. The patient has not traveled outside the [place] Infectious disease exposure: No infectious disease exposure. ABUSE ASSESSMENT: The patient answered "yes" to the question(s) "Do you feel safe in your home?" and "no" to the question(s) "Are you afraid to go home?". SELF HARM ASSESSMENT: Self harm assessment was performed. The patient answered "no" to the question(s) "Have you recently felt down, depressed, or hopeless?" and "Do you have thoughts of harming or killing yourself?". FALL RISK ASSESSMENT: Fall risk assessment completed. No risk factors identified. -- 19:47 04/29/25 EDT Stephanie Doty R.N. Interventions 19:56 04/29/25. Advanced care plan. Patient does not have advanced directive. -- 19:56 04/29/25 EDT Stephanie Doty R.N. PHYSICAL ASSESSMENT 20:51 04/29/25. To room via wheelchair. ( pt shaking uncontrollable, vomiting, states she is dizzy. states he found on curled up on the bathroom floor. Pt states this started around 1600). GENERAL / NEURO / PSYCH: Oriented X 4. Appears in distress. 2 of 4 Nurse Narrative - BONITA FERNANDEZ, : 1960, , RESPIRATORY: Respirations not labored. Breath sounds within normal limits. -- 21:51 04/29/25 EDT Edd Palmer R.N. NURSING PROGRESS NOTES 19:38 04/29/25. Site #1 started in the left antecubital space with an 18g needle with aseptic technique and good blood return; 1 attempt. Blood drawn: rainbow set tube(s). Saline lock flushed with 10 mL saline. -- 19:48 04/29/25 EDT Stephanie Doty R.N. 19:41 04/29/25. ( EKG completed at 1939, shown to Dr. Hector). -- 19:41 04/29/25 EDT Georgette Thomas R.N. 19:48 04/29/25. Zofran IVP 4 mg given via Site# 1. Allergies verified and confirmed 5 rights. IV patency established. IV site checked: no pain, redness, or swelling. IV flushed thoroughly pre-medication administration. IVP given by nurse practitioner. Information reviewed with patient including reason for taking this medication, signs of allergic reaction and precautions. Verbalizes understanding. -- 19:48 04/29/25 EDT Stephanie Doty R.N. 19:50 04/29/25. IV NS 0.9 % 1000 mL started in bag#1 1000 mL at 500 mL/hr via Site# 1. Allergies verified and confirmed 5 rights. IV patency established. IV site checked: no pain, redness, or swelling. IV flushed thoroughly pre-medication administration. Information reviewed with patient including reason for taking this medication, signs of allergic reaction and precautions. Verbalizes understanding. -- 19:50 04/29/25 EDT Stephanie Doty R.N. 19:59 04/29/25. LORazepam (Ativan) IVP 1 mg given via Site# 1. Allergies verified and confirmed 5 rights. IV patency established. IV site checked: no pain, redness, or swelling. IV flushed thoroughly pre-medication administration. Information reviewed with patient and spouse including reason for taking this medication, signs of allergic reaction and precautions. Verbalizes understanding. Medication Wastage: 1 mg wasted. -- 20:01 04/29/25 EDT Stephanie Doty R.N. 20:30 04/29/25. Patient transported to CT by stretcher with monitor and radiolog (more content not included)... Normal [facility] ED ORDER SHEET (CPOE ONLY)on 04-30-2025 ED ORDER SHEET (CPOE ONLY) Order Sheet - BONITA FERNANDEZ, : 1960, , [place] [address] [id number] 04/29/2025 Patient: BONITA FERNANDEZ Sex: Female : 1960 Age: 65y MEASUREMENTS: Wt: 52.2 kg, Ht/Adrian: 62.0 in, BMI: 21.03 ALLERGIES: No known drug allergies MEDICATION/IV/DRIP/F LUID ORDERS Order Description Priority Entered Acknowledged Completed IV NS 0.9 %1000 mL at 500 19:36 04/29/2025 19:50 mL/hr (NOW x1) Krishna Hector, 04/29/2025 Lana Doty R.N. Zofran IVP4 mg (NOW x1) 19:36 04/29/2025 19:48 Krishna Hector, 04/29/2025 D.O. Crystal Lalitha, R.N. LORazepam (Ativan) IVP1 mg 19:54 04/29/2025 20:01 (NOW x1) Krishna Hector, 04/29/2025 Lana Doty R.N. IV NS 0.9 %1000 mL at 500 20:17 04/29/2025 20:23 21:30 mL/hr (NOW x1) Krishna Hector, 04/29/2025 04/29/2025 Domingo Short R.N. 1 of 3 Order Sheet - BONITA FERNANDEZ, : 1960, , Reason for ordering with alerts: Benefits outweigh risks --20:17 04/29/2025 Krishna Hector D.O. Meclizine (Antivert) PO25 mg 22:03 04/29/2025 22:05 22:13 (NOW x1) Krishna Hector, 04/29/2025 04/29/2025 Domingo Short, [email or web address] Reason for ordering with alerts: Benefits outweigh risks --22:03 04/29/2025 Krishna Hector D.O. LAB ORDERS Order Description Priority Entered Acknowledged Collected Completed CBC w Diff Stat Stat 19:36 04/29/2025 19:45 04/29/2025 Dayo Forrest D.O. CMP Stat Stat 19:36 04/29/2025 19:45 04/29/2025 Dayo Forrest D.O. Lipase Stat Stat 19:36 04/29/2025 19:46 04/29/2025 Dayo Forrest D.O. Urinalysis Stat Stat 19:36 04/29/2025 19:46 04/29/2025 21:23 04/29/2025 Dayo Forrest R.N. D.O. EKG - ED Stat Stat 20:03 04/29/2025 20:09 04/29/2025 Edd Forrest R.N. D.O. Troponin-I Stat Stat 20:03 04/29/2025 20:09 04/29/2025 Edd Forrest R.N. 2 of 3 Order Sheet - BONITA FERNANDEZ, : 1960, , Lana DIAGNOSTIC STUDY ORDERS Order Description Priority Entered Acknowledged Completed CT ABD/PEL w Cont Stat Stat 19:36 04/29/2025 19:46 20:31 Krishna Hector, 04/29/2025 04/29/2025 Lana Palmer R.N. Order Comments: 19:35 04/29/2025: Status: Not . Krishna Hector D.O. Reason for Study: Abdominal Distention,Abdominal Pain CT Brain wo Cont Stat Stat 20:12 04/29/2025 20:23 20:31 Krishna Hector, 04/29/2025 04/29/2025 Domingo Short R.N. Reason for Study: Altered Sense of Awareness STAFF ORDERS Order Description Priority Entered Acknowledged Collected Completed IV Saline Lock 19:36 04/29/2025 19:46 04/29/2025 Dayo Forrest D.O. [Electronically signed by Krishna Hector D.O. (04/30/2025 14:14 EDT)] 3 of 3 Normal [facility] ED PHYSICIAN CLINICAL REPORT on 04-30-2025 ED PHYSICIAN CLINICAL REPORT Narrative - BONITA FERNANDEZ, : 1960, , Physician Clinical Narrative [address] [address] [id number] 04/29/2025 19:32:00 Patient: BONITA FERNANDEZ Sex: Female : 1960 Age: 65y Disposition: Discharge to Home Disposition Decision Time: 23:07 04/29/2025 Departure Time: 23:25 04/29/2025 Measurements Wt: 52.2 kg, Ht/Adrian: 62.0 in, BMI: 21.03 Initial Vital Sign Measured Time BP MAP HR RR O2Sat ETCO2 Temp Pain GCS RTS 19:44 04/29/2025 122/74 90 106 20 100% 97.5 F 0 Time Seen: 19:24 04/29/2025. Arrived- By private vehicle. Historian- patient. Independent historian- family. HISTORY OF PRESENT ILLNESS Chief Complaint: ABDOMINAL PAIN. This started today patient came in with intractable nausea vomiting initially was kind of abdominal pain. But as she was here she stated she was mowing the grass today and she is doing circles and when she was doing the circles going around a tree she felt lightheaded. And then so she slowed them over down and then when she got off the Viki 4:00 a.m. she just started vomiting and had a spinning sensation. Was not lightheaded. And then for the next 3 hours she continued to vomit when she came in she was having nausea vomiting. REVIEW OF SYSTEMS Status: Not . 1 BONITA Carney, : 1960, , PAST HISTORY no known problem Surgeries: no known surgical history Medications: sertraline 50 mg tablet Allergies: no known drug allergies ADDITIONAL NOTES The nursing notes have been reviewed. PHYSICAL EXAM Appearance: Alert. Oriented X3. Anxious. Eyes: Pupils equal, round and reactive to light. Eyes normal inspection. ENT: Ears normal. Nose normal. Neck: Normal inspection. Neck supple. CVS: Tachycardia. Normal heart rhythm. Respiratory: No respiratory distress. Breath sounds normal. Abdomen: Soft and nontender. Back: Normal inspection. Skin: Skin warm and dry. Normal skin color. Normal skin turgor. Extremities: Extremities exhibit normal ROM. No lower extremity edema. Neuro: Oriented X 3. No motor deficit. LABS, X-RAYS, AND EKG Laboratory Tests: 2 of BONITA Carney, : 1960, , CBC + DIFF Final HANSA: 04/29/2025 19:38:00 EDT MsgRcvd: 04/29/2025 20:10 EDT Lab Test Result Reference Status Received 04/29/2025 20:10 CBC + DIFF Final EDT CBC-COMPLETE BLOOD COUNT 04/29/2025 20:10 WBC 9.2 x 10/UL 4.5 - 10.8 Final EDT 04/29/2025 20:10 RBC 5.02 x 10/UL 4.10 - 5.30 Final EDT 04/29/2025 20:10 HEMOGLOBIN 15.3 g/dl 12.0 - 16.0 Final EDT 04/29/2025 20:10 HEMATOCRIT 45.5 % 34.0 - 46.0 Final EDT 04/29/2025 20:10 MCV 91 fl 80 - 99 Final EDT 04/29/2025 20:10 MCH 30 pg 27 - 33 Final EDT 04/29/2025 20:10 MCHC 34 X10 3 32 - 36 Final EDT 04/29/2025 20:10 RDW/CV 13.3 % 12.0 - 15.6 Final EDT 04/29/2025 20:10 PLATELET 379 x10/UL 150 - 450 Final EDT 04/29/2025 20:10 MPV 7.1 fl 6.6 - 10.5 Final EDT AUTOMATED DIFFERENTIAL 3 of 24 [facility] - BONITA FERNANDEZ, : 1960, , 82.9 % 04/29/2025 20:10 NEUT % 46.0 - 76.0 Final Above high normal EDT 13.1 % 04/29/2025 20:10 LYMPH % 20.0 - 45.0 Final Below low normal EDT 04/29/2025 20:10 MONOS % 3.3 % 0.0 - 10.0 Final EDT 04/29/2025 20:10 EO % 0.4 % 0.0 - 7.0 Final EDT 04/29/2025 20:10 BASO % 0.3 % 0.0 - 2.0 Final EDT 04/29/2025 20:10 Lymph # 1.20 x10/UL 0.80 - 2.80 Final EDT 7.64 x10/UL 04/29/2025 20:10 Neut # 1.50 - 7.10 Final Above high normal EDT 04/29/2025 20:10 Som[place]ell # 0.30 x10/UL 0.20 - 1.00 Final EDT 04/29/2025 20:10 EO # 0.04 x10/UL 0.00 - 0.50 Final EDT 04/29/2025 20:10 Baso # 0.03 x10/UL 0.00 - 0.10 Final EDT 04/29/2025 20:10 MANUAL DIFF N/A New Order EDT 04/29/2025 20:10 MORPHOLOGY N/A New Order EDT CMP with eGFR Final HANSA: 04/29/2025 19:38:00 EDT MsgRcvd: 04/29/2025 20:30 EDT 4 of 24 Narrative - BONITA FERNANDEZ, : 1960, , Lab Test Result Reference Status Received 04/29/2025 20:30 CMP with eGFR Final EDT COMPREHENSIVE METABOLIC PANEL 04/29/2025 20:30 SODIUM 138 mmol/l 136 - 145 Final EDT 3.4 mmol/L 04/29/2025 20:30 POTASSIUM 3.5 - 5.1 Final Below low normal EDT 04/29/2025 20:30 CHLORIDE 99 mmol/L 98 - 107 Final EDT 19.5 mmol/L 04/29/2025 20:30 CO2 21.0 - 32.0 Final Below low normal EDT 138 mg/dl 04/29/2025 20:30 GLUCOSE 74 - 106 Final Above high normal EDT 04/29/2025 20:30 BUN 13 mg/dl 7 - 18 Final EDT 04/29/2025 20:30 CREATININE 0.92 mg/dl 0.55 - 1.02 Final EDT 04/29/2025 20:30 AST/SGOT 30 U/L 13 - (more content not included)... Normal [facility] ED SUPER BILLon 04-30-2025 ED SUPER BILL [facility] - BONITA FERNANDEZ, : 1960, , [address] [address] [id number] 04/29/2025 Patient: BONITA FERNANDEZ Sex: Female : 1960 Age: 65y Facility Professional Category Item Description Code Code Quantity Fee Total Drugs Normal Saline 565695 2 $0.00 $0.00 1000cc (360710) Nurse/E/M EMERGENCY 458602 1 $0.00 $0.00 DEPT VISIT HIGH SEVERITYFUNCJ (23984-49) Nurse/IV/IM/Infusion s Hydration 120306 3 $0.00 $0.00 additional hour (47245) Nurse/IV/IM/Infusion s IVP additional 050352 1 $0.00 $0.00 push (92227) Nurse/IV/IM/Infusion s IVP initial (02354) 971387 1 $0.00 $0.00 Nurse/Supplies [employer] Adult 9434992 1 $0.00 $0.00 (7264059) Grand $0.00 Total Providers Krishna Hector D.O. 1 of 2 [facility] - BONITA FERNANDEZ, : 1960, , Colton Sims D.O. Chief Complaint ABDOMINAL PAIN. Principal Diagnosis Acute vertigo of peripheral origin: benign positional vertigo on the right. Single simple left ovarian cyst. No ruptured ovarian cyst or torsion of ovary. ICD-10 Codes N83.299: Other ovarian cyst, unspecified side N83.202: Unspecified ovarian cyst, left side H81.11: Benign paroxysmal vertigo, right ear 2 of 2 Normal [facility] ED VISIT SUMMARYon ED VISIT SUMMARY Visit Overview - BONITA FERNANDEZ, : 1960, , Visit [address] [address] [id number] 04/29/2025 Patient: BONITA FERNANDEZ Sex: Female : 1960 Age: 65y 04/30/2025 02:14 PM EDT ED Arrival:19:32 04/29/2025 EDT Status:not Recent Travel:no Language:eng Adv Directive:No Isolation Status: Ethnicity:N Fall Risk:no risk Infectious Disease Exposure:no Measurements:5'2" / 157.5 Self-Harm Status:risk Sepsis Screen:negative cm 115.0 lb / 52.2 kg Chief Complaint:NAUSEA, 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, (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), 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 (Mireya Abraham ) ALLERGIES No Known Drug Allergies HOME MEDICATIONS sertraline 50 mg tablet PAST MEDICAL HISTORY / PROBLEMS None 1 of 3 Visit Overview - BONITA FERNANDEZ, : 1960, , PAST SURGICAL HISTORY No Surgeries SOCIAL HISTORY Smoking status: No Alcohol use: No Drug use: No ED COURSE MEDICATIONS GIVEN IN EMERGENCY DEPARTMENT 19:48 04/29/25 Zofran IVP 4 mg 19:50 04/29/25 IV NS 0.9 % 1000 mL 500 mL/hr 19:59 04/29/25 LORazepam (Ativan) IVP 1 mg 21:29 04/29/25 IV NS 0.9 % 1000 mL 500 mL/hr 22:12 04/29/25 Meclizine (Antivert) PO 25 mg IV SITE INFORMATION INTAKE OUTPUT REASSESMENT (most recent) 20:51 04/29/25. To room via wheelchair. ( pt shaking uncontrollable, vomiting, states she is dizzy. states he found on curled up on the bathroom floor. Pt states this started around 1600). GENERAL / NEURO / PSYCH: Oriented X 4. Appears in distress. RESPIRATORY: Respirations not labored. Breath sounds within normal limits. VITAL SIGNS First Vitals Last Vitals Temp 19:44 04/29/25 97.5 F Temp 22:42 04/29/25 BP 19:44 04/29/25 122/74 BP 22:42 04/29/25 HR 19:44 04/29/25 106 HR 22:42 04/29/25 81 RR 19:44 04/29/25 20 RR 22:42 04/29/25 O2 Sat 19:44 04/29/25 100% O2 Sat 22:42 04/29/25 97% Pain 19:44 04/29/25 0 Pain 22:42 04/29/25 2 of 3 Visit Overview - BONITA FERNANDEZ, : 1960, , First Vitals Last Vitals ETCO2 19:44 04/29/25 ETCO2 22:42 04/29/25 GCS 19:44 04/29/25 GCS 22:42 04/29/25 RTS 19:44 04/29/25 RTS 22:42 04/29/25 PROCEDURES NURSING INTERVENTIONS LABS / STUDIES LABS / STUDIES ORDERED CBC w Diff CMP CT ABD/PEL w Cont CT Brain wo Cont EKG - ED Lipase Troponin-I Urinalysis CLINICAL IMPRESSION ACUTE VERTIGO OF PERIPHERAL ORIGIN: BENIGN POSITIONAL VERTIGO ON THE RIGHT SINGLE SIMPLE LEFT OVARIAN CYST. NO RUPTURED OVARIAN CYST OR TORSION OF OVARY 3 of 3 Normal [facility] ED VITALS FLOW SHEETon 04-30 ED VITALS FLOW SHEET Vitals - BONITA FERNANDEZ, : 1960, , [place] [address] [id number] 04/29/2025 Patient: BONITA FERNANDEZ Sex: Female : 1960 Age: 65y Measurements Wt: 52.2 kg, Ht/Adrian: 62.0 in, BMI: 21.03 Measured Time BP MAP HR RR O2Sat ETCO2 Temp Pain GCS RTS 22:42 04/29/2025 81 97% 22:37 04/29/2025 80 93% 22:37 04/29/2025 146/84 104 84 22:32 04/29/2025 88 97% 22:27 04/29/2025 87 98% 22:22 04/29/2025 145/93 110 87 22:22 04/29/2025 89 96% 22:17 04/29/2025 83 98% 19:44 04/29/2025 122/74 90 106 20 100% 97.5 F 0 1 of 1 Normal [facility] CBC + DIFFon 04-29-2025 Baso # 0.03 x10EE3/UL Normal 0.00 - 0.10 [facility] Comment on above: Performed By: #### 2 16287 ####[facility],[address] [place] [address] Basophils/100 WBC (Bld) 0.3 % Normal 0.0 - 2.0 [facility] Comment on above: Performed By: #### 2 03097 ####[facility],[address] [place] [address] CBC + DIFF Normal [facility] Comment on above: Result Comment: CBC- COMPLETE BLOOD COUNT Performed By: #### 2 92401 ####[place] [address] EO # 0.04 x10EE3/UL Normal 0.00 - 0.50 [facility] Comment on above: Performed By: #### 2 67962 ####[place] [address] Eosinophils/100 WBC (Bld) 0.4 % Normal 0.0 - 7.0 [facility] Comment on above: Performed By: #### 2 56181 ####[place] [address] Erythrocyte distribution width (RBC) [Ratio] 13.3 % Normal 12.0 - 15.6 [facility] Comment on above: Performed By: #### 2 59037 ####[place] [address] Hematocrit (Bld) [Volume fraction] 45.5 % Normal 34.0 - 46.0 [facility] Comment on above: Performed By: #### 2 51805 ####[place] [address] Hemoglobin (Bld) [Mass/Vol] 15.3 g/dL Normal 12.0 - 16.0 [facility] Comment on above: Performed By: #### 2 18608 ####[place] [address] Lymph # 1.20 x10EE3/UL Normal 0.80 - 2.80 [facility] Comment on above: Performed By: #### 2 34332 ####[facility],[address] [place] [address] Lymphocytes/100 WBC (Bld) 13.1 % Low 20.0 - 45.0 [facility] Comment on above: Performed By: #### 2 93899 ####[facility],[address] [place] [address] MANUAL DIFF N/A Normal [facility] Comment on above: Performed By: #### 2 69940 ####[facility],[address] [place] [address] MCH (RBC) [Entitic mass] 30 pg Normal 27 - 33 [facility] Comment on above: Performed By: #### 2 00167 ####[place] [address] MCHC 34 X10 3 Normal 32 - 36 [facility] Comment on above: Performed By: #### 2 77679 ####[place] [address] MCV (RBC) [Entitic vol] 91 fL Normal 80 - 99 [facility] Comment on above: Performed By: #### 2 43374 ####[place] [address] Somervell # 0.30 x10EE3/UL Normal 0.20 - 1.00 [facility] Comment on above: Performed By: #### 2 08263 ####[place] [address] MONOS % 3.3 % Normal 0.0 - 10.0 [facility] Comment on above: Performed By: #### 2 14005 ####[place] [address] Morphology Riaz (Bld) [Interp] N/A Normal [facility] Comment on above: Performed By: #### 2 33877 ####[place] [address] Neut # 7.64 x10EE3/UL High 1.50 - 7.10 [facility] Comment on above: Performed By: #### 2 44532 ####[facility],[address] [place] [address] Neutrophils/100 WBC (Bld) 82.9 % High 46.0 - 76.0 [facility] Comment on above: Performed By: #### 2 31073 ####[facility],[address] [place] [address] PLATELET 379 x10EE3/UL Normal 150 - 450 [facility] Comment on above: Performed By: #### 2 97467 ####[facility],[address] [place] [address] Platelet mean volume (Bld) [Entitic vol] 7.1 fL Normal 6.6 - 10.5 [facility] Comment on above: Result Comment: AUTO MATED DIFFERENTIAL Performed By: #### 2 94818 ####[facility],[address] [place] [address] RBC 5.02 x 10EE6/UL Normal 4.10 - 5.30 [facility] Comment on above: Performed By: #### 2 04179 ####[facility],[address] [place] [address] WBC 9.2 x 10EE3/UL Normal 4.5 - 10.8 [facility] Comment on above: Performed By: #### 2 47783 ####[facility],[address] [place] [address] CMP with eGFRon 04-29-2025 AGE 65 years Normal [facility] Comment on above: Performed By: #### 2 84786 ####[facility],[address] [place] [address] Albumin [Mass/Vol] 4.3 g/dL Normal 3.4 - 5.0 [facility] Comment on above: Performed By: #### 2 81160 ####[facility],[address] [place] [address] Albumin/Globulin [Mass ratio] 1.1 {ratio} Normal 0.9 - 1.6 [facility] Comment on above: Performed By: #### 2 23097 ####[facility],[address] [place] [address] ALK PHOS 103 U/L Normal 46 - 116 [facility] Comment on above: Performed By: #### 2 21763 ####[facility],[address] [place] [address] ALT [Catalytic activity/Vol] 25 U/L Normal 16 - 63 [facility] Comment on above: Performed By: #### 2 96323 ####[facility],[address] [place] [address] Anion gap [Moles/Vol] 23 mmol/L High 10 - 20 [facility] Comment on above: Performed By: #### 2 54953 ####[facility],[address] [place] [address] AST [Catalytic activity/Vol] 30 U/L Normal 13 - 39 [facility] Comment on above: Performed By: #### 2 19236 ####[facility],[address] [place] [address] B/C RATIO 14 ratio Normal 0 - 30 [facility] Comment on above: Performed By: #### 2 72278 ####[facility],[address] [place] [address] Bilirubin [Mass/Vol] 0.7 mg/dL Normal 0.2 - 1.0 [facility] Comment on above: Performed By: #### 2 33590 ####[facility],[address] [place] [address] Calcium [Mass/Vol] 9.5 mg/dL Normal 8.5 - 10.1 [facility] Comment on above: Performed By: #### 2 62261 ####[facility],[address] [place] [address] Chloride [Moles/Vol] 99 mmol/L Normal 98 - 107 [facility] Comment on above: Performed By: #### 2 08196 ####[facility],[address] [place] [address] CMP with eGFR Normal [facility] Comment on above: Result Comment: COMP REHENSIVE METABOLIC PANEL Performed By: #### 2 21388 ####[facility],[address] [place] [address] CO2 [Moles/Vol] 19.5 mmol/L Low 21.0 - 32.0 [facility] Comment on above: Performed By: #### 2 53896 ####[facility],[address] [place] [address] Creatinine [Mass/Vol] 0.92 mg/dL Normal 0.55 - 1.02 [facility] Comment on above: Performed By: #### 2 26646 ####[facility],[address] [place] [address] GFR/1.73 sq M.predicted among non-blacks MDRD (S/P/Bld) [Vol rate/Area] mL/min/{1.73_m2} Normal 60 - 999 [facility] Comment on above: Performed By: #### 2 19808 ####[facility],[address] [place], [place] [id number] Result Comment: ACCO RDING TO THE NATIONAL KIDNEY DISEASE EDUCATION PROGRAM(NKDE), A NORMAL eGFR IS A VALUE GREATER THAN OR EQUAL TO 60 ML/MIN/1.73 SQ METERS. CHRONIC KIDNEY DISEASE: <60mL/MIN/1.73 SQ METERS KIDNEY FAILURE: <15mL/MIN/1.73 SQ METERS THIS TEST SHOULD ONLY BE USED FOR PATIENTS 18 YEARS OF AGE AND OLDER. Globulin (S) [Mass/Vol] 3.8 g/dL Normal 1.5 - 3.8 [facility] Comment on above: Performed By: #### 2 75061 ####[facility],[address] [place] [address] Glucose [Mass/Vol] 138 mg/dL High 74 - 106 [facility] Comment on above: Performed By: #### 2 85088 ####[facility],[address] [place] [address] Potassium [Moles/Vol] 3.4 mmol/L Low 3.5 - 5.1 [facility] Comment on above: Performed By: #### 2 33904 ####[facility],[address] [place] [address] Protein [Mass/Vol] 8.1 g/dL Normal 6.4 - 8.2 [facility] Comment on above: Performed By: #### 2 31320 ####[facility],[address] [place] [address] Sodium [Moles/Vol] 138 mmol/L Normal 136 - 145 [facility] Comment on above: Performed By: #### 2 66662 ####[facility],[address] [place] [address] Urea nitrogen [Mass/Vol] 13 mg/dL Normal 7 - 18 [facility] Comment on above: Performed By: #### 2 35788 ####[facility],[address] [place] [address] ABDOMEN/PELVIS [facility] 2024 CT ABDOMEN/PELVIS [place] [address] Patient: BONITA FERNANDEZ Phone#: : 1960 Age: 65 Gender: F Pt. Type: ER Account: [id number] Location: [facility] Ordering: KRISHNA HECTOR Exam Date: 04/29/2025/20:45 Family Phys: MIREYA ABRAHAM Charge Code: 182500 Physician: Sullivan Order #: [id number] Dose#: 10.2 mGy PROCEDURE: CT ABDOMEN/PELVIS WITH CONTRAST COMPARISON: None. INDICATIONS: Abdominal pain and nausea. TECHNIQUE: After obtaining the patient's consent, CT images were created with non-ionic intravenous contrast material. All CT scans at this facility use dose modulation, iterative reconstruction, and/or weight based dosing when appropriate to reduce radiation dose to as low as reasonably achievable. IV CONTRAST: Omnipaque 350,80ml TOTAL DOSE: 10.2 CTDIvol(mGy) FINDINGS: LIVER: Right hepatic cyst is present measuring 4.0 centimeters. There is a 2nd 15 millimeter right hepatic cyst.. No enlargement, atrophy, abnormal density, or significant focal lesion. BILIARY: Normal. No visible dilatation or calcification. PANCREAS: Normal. No lesion, fluid collection, ductal dilatation, or atrophy. SPLEEN: Normal. No enlargement or focal lesion. KIDNEYS: Normal. No mass, obstruction, or calcification. ADRENALS: Normal. No mass or enlargement. AORTA/VASCULAR: Normal. No aneurysm or dissection. RETROPERITONEUM: Normal. No mass or adenopathy. BOWEL/MESENTERY: Normal. No visible mass, obstruction, or bowel wall thickening. ABDOMINAL WALL: Normal. No mass or hernia. URINARY BLADDER: Normal. No visible focal wall thickening, lesion, or calculus. PELVIC NODES: Normal. No adenopathy. PELVIC ORGANS: There is a 5.1 x 3.1 centimeter left adnexal cyst. BONES: Normal. No bony lesion or fracture. LUNG BASES: Normal. No visible pulmonary or pleural disease. OTHER: Negative. Continued Report - Page 2 of 2 Patient: BONITA FERNANDEZ Phone#: : 1960 Age: 65 Gender: F Pt. Type: ER Account: [id number] Location: 052 Ordering: KRISHNA HECTOR Exam Date: 04/29/2025/20:45 Family Phys: MIREYA ABRAHAM Charge Code: 264111 Physician: Sullivan Order #: [id number] Dose#: 10.2 mGy CONCLUSION: 1. Right hepatic cysts are present. 2. There is a 5.1 centimeter left adnexal cyst. 3. No other acute abdominal pelvic abnormality is identified. Dictated by: Eli Lou MD on 04/29/2025 at 21:18 Approved by: Eli Lou MD on 04/29/2025 at 21:23 Normal [facility] CT BRAIN W/O CONTRASTon 04-06 CT BRAIN W/O CONTRAST [address] [address] Patient: BONITA FERNANDEZ Phone#: : 1960 Age: 65 Gender: F Pt. Type: ER Account: [id number] Location: 052 Ordering: KRISHNA HECTOR Exam Date: 04/29/2025/20:45 Family Phys: MIREYA ABRAHAM Charge Code: [id number] Physician: Sullivan Order #: [id number] Dose#: 52.3 mGy PROCEDURE: CT BRAIN WITHOUT CONTRAST COMPARISON: None. INDICATIONS: Altered mental status. TECHNIQUE: CT images were obtained without contrast material. All CT scans at this facility use dose modulation, iterative reconstruction, and/or weight based dosing when appropriate to reduce radiation dose to as low as reasonably achievable. IV CONTRAST: No IV contrast used,0ml TOTAL DOSE: 52.3 CTDIvol(mGy) FINDINGS: CEREBRUM: Age-appropriate atrophy is present, without visible acute hemorrhage or lesion. Deep white matter small vessel disease changes are present. CEREBELLUM: No edema, hemorrhage, mass, acute infarction, or inappropriate atrophy. BRAINSTEM: No edema, hemorrhage, mass, acute infarction, or inappropriate atrophy. CSF SPACES: Ventricles, cisterns, and sulci are appropriate for age. No hydrocephalus, subarachnoid hemorrhage, or mass. SKULL: No mass or other significant visible lesion. SINUSES: Limited views demonstrate no significant mucosal thickening or fluid. ORBITS: Limited views are unremarkable. OTHER: Negative. CONCLUSION: 1. There is no evidence of acute intracranial abnormality. Dictated by: Eli Lou MD on 04/29/2025 at 21:15 Approved by: Eli Lou MD on 04/29/2025 at 21:17 Normal [facility] LIPASEon 04-29-2025 Lipase [Catalytic activity/Vol] 29.0 U/L Normal 15.0 - 78.0 [facility] Comment on above: Result Comment: *PLE ASE NOTE THAT RANGES FOR LIPASE HAVE CHANGED OF 09/02/23 DUE TO AN ASSAY UPDATE BY THE DRESSMAKER OR TAILOR.THE NEW ASSAY RANGE IS 6-250 U/L, WITH A REFERENCE RANGE OF 16-77 U/L. Performed By: #### 2 35198 #### [facility],[address] [place], [place] [id number] TROPONINon 04-29-2025 HS TROPONIN 5.4 pg/mL Normal 0.0 - 51.4 [facility] Comment on above: Performed By: #### 2 50241 #### [facility],[address] [place], [place] [id number] URINALYSISon 04-29-2025 Bilirubin Ql (U) Negative Normal NORMAL: NEGATIVE [facility] Comment on above: Performed By: #### 2 31301 #### [facility],[address] [place] [address] Clarity (U) clear Normal NORMAL: CLEAR [facility] Comment on above: Performed By: #### 2 26847 #### [facility],[address] [place] [address] Color (U) yellow Normal NORMAL: YELLOW [facility] Comment on above: Performed By: #### 2 35674 #### [facility],[address] [place] [address] 41862 Glucose Ql (U) NORM Normal NORMAL: NORMAL [facility] Comment on above: Performed By: #### 2 10166 #### [facility],[address] [place] [address] 44638 Hemoglobin Ql (U) Negative Normal NORMAL: NEGATIVE [facility] Comment on above: Performed By: #### 2 35438 #### [facility],[address] [place] [address] 45975 Ketone 50 Abnormal NORMAL: NEGATIVE [facility] Comment on above: Performed By: #### 2 42487 #### [facility],[address] [place] [address] 67263 Leukocytes Negative Normal NORMAL: NEGATIVE [facility] Comment on above: Performed By: #### 2 78304 #### [facility],[address] [place] [address] 01468 Nitrite Ql (U) Negative Normal NORMAL: NEGATIVE [facility] Comment on above: Performed By: #### 2 16265 #### [facility],[address] [place] [address] 45272 pH (U) 8 [pH] Normal NORMAL: 5.0-8.0 [facility] Comment on above: Performed By: #### 2 10361 #### [facility],[address] [place] [address] 07395 Protein Ql (U) Negative Normal NORMAL: NEGATIVE [facility] Comment on above: Performed By: #### 2 54356 #### [facility],[address] [place] [address] 02256 Sp [place] 1.010 Normal NORMAL: 1.010-1.030 [facility] Comment on above: Performed By: #### 2 08860 #### [facility],[address] [place] [address] 72961 Specimen Type R Normal [facility] Comment on above: Performed By: #### 2 38160 #### [facility],[address] [place] [address] 37890 Urinalysis dipstick W Reflex Microscopic panel (U) NOT INDICATED Normal [facility] Comment on above: Performed By: #### 2 22842 #### [facility],[address] [place] [address] 59853 Urobilinog NORM Normal NORMAL: NORMAL [facility] Comment on above: Performed By: #### 2 24365 #### [facility],[address] [place], [place] [id number] 3D MAMM BILAT SCREENon 09-13 3D MAMM BILAT SCREEN [place] [address] Patient: BONITA FERNANDEZ Phone#: : 1960 Age: 64 Gender: F Pt. Type: Out Account: [id number] Location: Ordering: [facility] Exam Date: 09/13/2024/8:07 Family Phys: Charge Code: [id number] Physician: Sullivan Order #: [id number] Dose#: PROCEDURE: BILATERAL SCREENING BREAST TOMOSYNTHESIS MAMMOGRAM WITH CAD COMPARISON: [facility], BILAT SCREENING, 10/24/2017, 14:16. [facility], 3D BILAT SCREEN, 01/25/2022, 15:56. [facility], 3D BILAT SCREEN, 09/12/2023, 8:01. INDICATIONS: Screening. BREAST COMPOSITION: Scattered areas fibroglandular density. FINDINGS: DIAGNOSTIC CATEGORY 1--NEGATIVE: RIGHT BREAST: No significant suspicious finding. No significant change has occurred. LEFT BREAST: No significant suspicious finding. No significant change has occurred. RECOMMENDATIONS: ROUTINE MAMMOGRAM AND CLINICAL EVALUATION IN 12 MONTHS. PLEASE NOTE: A NORMAL MAMMOGRAM DOES NOT EXCLUDE THE POSSIBILITY OF BREAST CANCER. A CLINICALLY SUSPICIOUS PALPABLE LUMP SHOULD BE BIOPSIED. THIS FACILITY UTILIZES A REMINDER SYSTEM TO ENSURE THAT ALL PATIENTS RECEIVE REMINDER LETTERS FOR APPOINTMENTS. THIS INCLUDES REMINDERS FOR ROUTINE MAMMOGRAMS, DIAGNOSITC MAMMOGRAMS, OR OTHER BREAST IMAGING INTERVENTIONS WHEN APPROPRIATE. THIS PATIENT WILL BE PLACED IN THE APPROPRIATE REMINDER SYSTEM. Dictated by: Darling Trimble MD on 09/13/2024 at 10:10 Approved by: Darling Trimble MD on 09/13/2024 at 10:19 Normal [facility] CBC (INCLUDES DIFF/PLT)on Basophils (Bld) [#/Vol] 0.083 10*3/uL Normal 0-200 [facility] Comment on above: Performed By: #### 7 600, 89596, 36960, 6399 #### [facility] [address], [address] [place] [id number] [employer]: Denver Hamilton MD Basophils/100 WBC (Bld) 1.5 % Normal [facility] Comment on above: Performed By: #### 7 600, 96639, 22070, 6399 #### [facility] of [address], [address] [place] [address] [employer]: Denver Hamilton MD Eosinophils (Bld) [#/Vol] 0.209 10*3/uL Normal 15-500 [facility] Comment on above: Performed By: #### 7 600, 90718, 28950, 6399 #### [facility] of [address], [address] [place] [address] [employer]: Denver Hamilton MD Eosinophils/100 WBC (Bld) 3.8 % Normal [facility] Comment on above: Performed By: #### 7 600, 48892, 42465, 6399 #### [facility] of [place] [address] [employer]: Denver Hamilton MD Erythrocyte distribution width (RBC) [Ratio] 12.3 % Normal 11.0-15.0 [facility] Comment on above: Performed By: #### 7 600, 04245, 72772, 6399 #### [facility] of [place] [address] [employer]: Denver Hamilton MD Hematocrit (Bld) [Volume fraction] 43.2 % Normal 35.0-45.0 [facility] Comment on above: Performed By: #### 7 600, 18788, 33188, 6399 #### [facility] of [place] [address] [employer]: Denver Hamilton MD Hemoglobin (Bld) [Mass/Vol] 14.1 g/dL Normal 11.7-15.5 [facility] Comment on above: Performed By: #### 7 600, 55342, 36684, 6399 #### [facility] of [place] [address] [employer]: Denver Hamilton MD Lymphocytes (Bld) [#/Vol] 1.623 10*3/uL Normal 850-3900 [facility] Comment on above: Performed By: #### 7 600, 61313, 63247, 6399 #### [facility] of [address], [address] [place] [address] [employer]ator: Denver Hamilton MD Lymphocytes/100 WBC (Bld) 29.5 % Normal [facility] Comment on above: Performed By: #### 7 600, 02008, 96484, 6399 #### [facility] of [address], [address] [place] [address] [employer]ator: Denver Hamilton MD MCH (RBC) [Entitic mass] 30.1 pg Normal 27.0-33.0 [facility] Comment on above: Performed By: #### 7 600, 84337, 11486, 6399 #### [facility] of [place] [address] [employer]: Denver Hamilton MD MCHC (RBC) [Mass/Vol] 32.6 g/dL Normal 32.0-36.[address] [facility] Comment on above: Result Comment: For adults, a slight decrease in the calculated MCHC value (in the range of 30 to 32 g/dL) is most likely not clinically significant; however, it should be interpreted with caution in correlation with other red cell parameters and the patient's clinical condition. Performed By: #### 7 600, 33850, 74797, 6399 #### [facility] of [address], [address] [place] [address] [employer]: Denver Hamilton MD MCV (RBC) [Entitic vol] 92.3 fL Normal 80.0-100.0 [facility] Comment on above: Performed By: #### 7 600, 54844, 20527, 6399 #### [facility] of [place] [address] [employer]ator: Denver Hamilton MD Monocytes (Bld) [#/Vol] 0.583 10*3/uL Normal 200-950 [facility] Comment on above: Performed By: #### 7 600, 67298, 10278, 6399 #### [facility] of [place] [address] [employer]: Denver Hamilton MD Monocytes/100 WBC (Bld) 10.6 % Normal [facility] Comment on above: Performed By: #### 7 600, 03898, 07791, 6399 #### [facility] of [address], [address] [place] [address] [employer]ator: Denver Hamilton MD Neutrophils (Bld) [#/Vol] 3.003 10*3/uL Normal 6615-6210 [facility] Comment on above: Performed By: #### 7 600, 86827, 57474, 6399 #### [facility] of [address], [address] [place] [address] [employer]ator: Denver Hamilton MD Neutrophils/100 WBC (Bld) 54.6 % Normal [facility] Comment on above: Performed By: #### 7 600, 69577, 79155, 6399 #### [facility] of [address], [address] [place] [address] [employer]ator: Denver Hamilton MD Platelet mean volume (Bld) [Entitic vol] 10.2 fL Normal 7.5-12.5 [facility] Comment on above: Performed By: #### 7 600, 73921, 48928, 6399 #### [facility] of [address], [address] [place] [address] [employer]: Denver Hamilton MD Platelets (Bld) [#/Vol] 339 10*3/uL Normal 140-400 [facility] Comment on above: Performed By: #### 7 600, 11676, 91447, 6399 #### [facility] of [address], [address] [place] [address] [employer]: Denver Hamilton MD RBC (Bld) [#/Vol] 4.68 10*6/uL Normal 3.80-5.10 [facility] Comment on above: Performed By: #### 7 600, 10195, 13143, 6399 #### [facility] of [address], [address] [place] [address] [employer]: Denver Hamilton MD WBC (Bld) [#/Vol] 5.5 10*3/uL Normal 3.8-10.8 [facility] Comment on above: Performed By: #### 7 600, 74045, 78915, 6399 #### [facility] of [place] [address] [employer]: Denver Hamilton MD COMPREHENSIVE METABOLIC PANE [facility] 09-12-2024 Albumin [Mass/Vol] 4.5 g/dL Normal 3.6-5.1 [facility] Comment on above: Performed By: #### 7 600, 09228, 93614, 6399 #### [facility] of [place] [address] [employer]: Denver Hamilton MD Albumin/Globulin [Mass ratio] 1.7 {ratio} Normal 1.0-2.5 [facility] Comment on above: Performed By: #### 7 600, 51569, 21660, 6399 #### [facility] of [place] [address] [employer]: Denver Hamilton MD ALP [Catalytic activity/Vol] 73 U/L Normal 37-153 [facility] Comment on above: Performed By: #### 7 600, 58552, 98315, 6399 #### [facility] of [place] [address] [employer]ator: Denver Hamilton MD ALT [Catalytic activity/Vol] 21 U/L Normal 6-29 [facility] Comment on above: Performed By: #### 7 600, 16161, 75258, 6399 #### [facility] of [place] [address] [employer]ator: Denver Hamilton MD AST [Catalytic activity/Vol] 23 U/L Normal 10-35 [facility] Comment on above: Performed By: #### 7 600, 65411, 41700, 6399 #### [facility] of [place] [address] [employer]: Denver Hamilton MD Bilirubin [Mass/Vol] 0.7 mg/dL Normal 0.2-1.2 [facility] Comment on above: Performed By: #### 7 600, 41895, 05575, 6399 #### [facility] [address], [address] [place] [address] [employer]ator: Denver Hamilton MD BUN/CREATININE RATIO SEE NOTE: Normal 6-22 [facility] Comment on above: Result Comment: Not Reported: BUN and Creatinine are within reference range. Performed By: #### 7 600, 85236, 94240, 6399 #### [facility] of [address], [address] [place] [address] [employer]ator: Denver Hamilton MD Calcium [Mass/Vol] 9.9 mg/dL Normal 8.6-10.4 [facility] Comment on above: Performed By: #### 7 600, 60948, 34522, 6399 #### [facility] [address], [address] [place] [address] [employer]ator: Denver Hamilton MD Chloride [Moles/Vol] 101 mmol/L Normal 98-110 [facility] Comment on above: Performed By: #### 7 600, 77883, 72369, 6399 #### [facility] [place] [address] [employer]ator: Denver Hamilton MD CO2 [Moles/Vol] 30 mmol/L Normal 20-32 [facility] Comment on above: Performed By: #### 7 600, 47646, 10990, 6399 #### [facility] of [place] [address] [employer]ator: Denver Hamilton MD Creatinine [Mass/Vol] 0.74 mg/dL Normal 0.50-1.[address] [facility] Comment on above: Performed By: #### 7 600, 33589, 83009, 6399 #### [facility] of [place] [address] [employer]ator: Denver Hamilton MD GFR/1.73 sq M.predicted among non-blacks MDRD (S/P/Bld) [Vol rate/Area] 89 mL/min/{1.73_m2} Normal > OR = 60 [facility] Comment on above: Performed By: #### 7 600, 51553, 46825, 6399 #### [facility] of [place] [address] [employer]ator: Denver Hamilton MD Globulin (S) [Mass/Vol] 2.7 g/dL Normal 1.9-3.7 [facility] Comment on above: Performed By: #### 7 600, 23531, 50007, 6399 #### [facility] of [place] [address] [employer]ator: Denver Hamilton MD Glucose [Mass/Vol] 89 mg/dL Normal 65-99 [facility] Comment on above: Result Comment: Fasting reference interval Performed By: #### 7 600, 85428, 27678, 6399 #### [facility] of [place] [address] [employer]ator: Denver Hamilton MD Potassium [Moles/Vol] 4.3 mmol/L Normal 3.5-5.[address] [facility] [address] [facility] Comment on above: Performed By: #### 7 600, 77724, 11667, 6399 #### [facility] of [place] [address] [employer]ator: Denver Hamilton MD Protein [Mass/Vol] 7.2 g/dL Normal 6.1-8.1 [facility] Comment on above: Performed By: #### 7 600, 10801, 36586, 6399 #### [facility] of [place] [address] [employer]ator: Denver Hamilton MD Sodium [Moles/Vol] 139 mmol/L Normal 135-146 [facility] Comment on above: Performed By: #### 7 600, 89877, 48459, 6399 #### [facility] of [place] [address] [employer]ator: Denver Hamilton MD Urea nitrogen [Mass/Vol] 12 mg/dL Normal 7-25 [facility] Comment on above: Performed By: #### 7 600, 59853, 39000, 6399 #### [facility] [address], [address] [place] [address] [employer]ator: Denver Hamilton MD LIPID PANEL, [facility] Cholesterol [Mass/Vol] 260 mg/dL High <200 [facility] Comment on above: Performed By: #### 7 600, 98346, 07052, 6399 #### [facility] [address], [address] [place] [address] [employer]ator: Denver Hamilton MD Cholesterol in HDL [Mass/Vol] 75 mg/dL Normal > OR = 50 [facility] Comment on above: Performed By: #### 7 600, 79392, 57825, 6399 #### [facility] [address], [address] [place] [address] [employer]ator: Denver Hamilton MD Cholesterol in LDL [Mass/Vol] 169 mg/dL High [facility] Comment on above: Result Comment: Refe rence range: <100 Desirable range <100 mg/dL for primary prevention; <70 mg/dL for patients with CHD or diabetic patients with > or = 2 CHD risk factors. LDL-C is now calculated using the Cedric-Mario calculation, which is a validated novel method providing better accuracy than the Friedewald equation in the estimation of LDL-C. Cedric KILPATRICK et al. NANCY. 2013;310(19): 8319-6414 (http://education.[employer].reeplay.it/faq/BUC144) Performed By: #### 7 600, 01535, 31451, 6399 #### [facility] [address], [address] [place] [address] [employer]ator: Denver Hamilton MD Cholesterol.total/Chol esterol in HDL [Mass ratio] 3.5 {ratio} Normal <5.0 [facility] Comment on above: Performed By: #### 7 600, 40342, 49528, 6399 #### [facility] [place] [address] [employer]ator: Denver Hamilton MD NON HDL CHOLESTEROL 185 mg/dL (calc) High <130 [facility] Comment on above: Result Comment: For patients with diabetes plus 1 major ASCVD risk factor, treating to a non-HDL-C goal of <100 mg/dL (LDL-C of <70 mg/dL) is considered a therapeutic option. Performed By: #### 7 600, 49088, 82316, 6399 #### [facility] [place] [address] [employer]ator: Denver Hamilton MD Triglyceride [Mass/Vol] 68 mg/dL Normal <150 [facility] Comment on above: Performed By: #### 7 600, 38131, 45590, 6399 #### [facility] [place] [address] [employer]ator: Denver Hamilton MD TSH W/REFLEX TO FT4on 2024 TSH W/REFLEX TO FT4 3.87 mIU/L Normal 0.40-4.50 [facility] Comment on above: Performed By: #### 7 600, 98761, 48584, 6399 #### [facility] [place] [address] [employer]ator: Denver Hamilton MD VITAMIN D,25-OH,TOTAL,IAon 0 09-12-2024 VITAMIN D,25-OH,TOTAL,IA 30 ng/mL Normal 30-100 [facility] Comment on above: Result Comment: Marisa min D Status 25-OH Vitamin D: Deficiency: <20 ng/mL Insufficiency: 20 - 29 ng/mL Optimal: > or = 30 ng/mL For 25-OH Vitamin D testing on patients on D2-supplementation and patients for whom quantitation of D2 and D3 fractions is required, the QuestAssure[facility](TM) 25-OH VIT D, (D2,D3), LC/MS/MS is recommended: order code 38998 (patients >2yrs). See Note 1 Note 1 For additional information, please refer to http://education.[employer].reeplay.it/faq/POA084 (This link is being provided for informational/ educational purposes only.) Performed By: #### 7 248, 66793, 32434, 2161 #### [facility] [address], [address] [place] [address] [employer]ator: Denver Hamilton MD Laboratory - Chemistry and C hemistry - challengeon 09-11-2024 Albumin [Mass/Vol] 4.5 g/dL Normal 3.6 - 5.1 g/dL [facility], [facility].; [employer] [facility] Albumin/Globulin [Mass ratio] 1.7 {ratio} Normal 1.0 - 2.5 [facility], [facility].; [facility] ALP [Catalytic activity/Vol] 73 U/L Normal 37 - 153 U/L [facility] [employer] [facility] ALT [Catalytic activity/Vol] 21 U/L Normal 6 - 29 U/L [facility] [employer] [facility] AST [Catalytic activity/Vol] 23 U/L Normal 10 - 35 U/L [facility], [facility].; [employer] [facility] Bilirubin [Mass/Vol] 0.7 mg/dL Normal 0.2 - 1 .2 mg/dL [facility] [employer] [facility] Calcium [Mass/Vol] 9.9 mg/dL Normal 8.6 - 10. 4 mg/dL [facility] [employer] [facility] Chloride [Moles/Vol] 101 mmol/L Normal 98 - 11 0 mmol/L [facility], [facility].; [employer] Cholesterol [Mass/Vol] 260 mg/dL Abnormal [facility], [facility].; [employer] [facility] Cholesterol in HDL [Mass/Vol] 75 mg/dL Normal [facility] [employer] [facility] Cholesterol in LDL [Mass/Vol] 169 mg/dL Abnormal [employer] [facility] [employer] CO2 [Moles/Vol] 30 mmol/L Normal 20 - 32 mmol/L [facility] [employer] Creatinine [Mass/Vol] 0.74 mg/dL Normal 0.50 - 1.05 mg/dL [facility].; [facility], [facility]. GFR/1.73 sq M.predicted among non-blacks MDRD (S/P/Bld) [Vol rate/Area] 89 mL/min/{1.73_m2} Normal [facility], [facility].; [facility], [facility] Glucose [Mass/Vol] 89 mg/dL Normal 65 - 99 mg/dL [facility], [facility] Potassium [Moles/Vol] 4.3 mmol/L Normal 3.5 - 5.3 mmol/L [facility].; [facility], [facility] Protein [Mass/Vol] 7.2 g/dL Normal 6.1 - 8.1 g/dL [facility].; [facility], [facility]. Sodium [Moles/Vol] 139 mmol/L Normal 135 - 146 mmol/L [facility].; [facility], [facility]. Triglyceride [Mass/Vol] 68 mg/dL Normal [facility]; [facility], [facility]. Urea nitrogen [Mass/Vol] 12 mg/dL Normal 7 - 25 mg/dL [facility]; [facility], [facility]. Laboratory - Hematology and Cell countson 09-11-2024 Basophils (Bld) [#/Vol] 0.083 10*3/uL Normal 0 - 200 {cells/uL} [facility], [facility].; [facility], [facility]. Basophils/100 WBC (Bld) 1.5 % Normal [facility].; [facility], [facility]. Eosinophils (Bld) [#/Vol] 0.209 10*3/uL Normal 15 - 500 {cells/uL} [facility], [facility].; [facility], [facility]. Eosinophils/100 WBC (Bld) 3.8 % Normal [facility].; [facility], [facility] Erythrocyte distribution width (RBC) [Ratio] 12.3 % Normal 11.0 - 15.0 % [facility], [facility].; [facility], [facility] Hematocrit (Bld) [Volume fraction] 43.2 % Normal 35.0 - 45.0 % [facility], [facility].; [facility], [facility]. Hemoglobin (Bld) [Mass/Vol] 14.1 g/dL Normal 11.7 - 15.5 g/dL [facility], [facility].; [facility], [facility]. Lymphocytes (Bld) [#/Vol] 1.623 10*3/uL Normal 850 - 3900 {cells/uL} [facility], [facility].; [facility] Lymphocytes/100 WBC (Bld) 29.5 % Normal [facility], [facility].; [facility], [facility]. MCH (RBC) [Entitic mass] 30.1 pg Normal 27.0 - 33.0 pg [facility], [facility].; [facility], [facility]. MCHC (RBC) [Mass/Vol] 32.6 g/dL Normal 32.0 - 36.0 g/dL [facility], [facility].; [employer], [facility]. MCV (RBC) [Entitic vol] 92.3 fL Normal 80.0 - 100.0 fL [facility], [facility].; [facility], [facility]. Monocytes (Bld) [#/Vol] 0.583 10*3/uL Normal 200 - 950 {cells/uL} [facility], [facility].; [employer] Monocytes/100 WBC (Bld) 10.6 % Normal [facility], [facility].; [facility] Neutrophils (Bld) [#/Vol] 3.003 10*3/uL Normal 1500 - 7800 {cells/uL} [facility], [facility].; [employer] Neutrophils/100 WBC (Bld) 54.6 % Normal [facility], [facility].; [employer] Platelet mean volume (Bld) [Entitic vol] 10.2 fL Normal 7.5 - 12.5 fL [facility], [facility].; [employer] Platelets (Bld) [#/Vol] 339 10*3/uL Normal 140 - 400 [facility], [facility].; [employer] [facility] RBC (Bld) [#/Vol] 4.68 10*6/uL Normal 3.80 - 5.1 0 {Million/uL} [facility].; [facility]. WBC (Bld) [#/Vol] 5.5 10*3/uL Normal 3.8 - 10.8 [facility] [employer] [facility] No Panel Informationon 09-11 BUN/CREATININE RATIO SEE NOTE: Normal 6 - 22 [facility].; [employer] [facility] CHOL/HDLC RATIO 3.5 Normal [facility]; [facility] GLOBULIN 2.7 Normal 1.9 - 3.7 [facility] NON HDL CHOLESTEROL 185 Abnormal [facility] TSH W/REFLEX TO FT4 3.87 {mIU/L} Normal 0.40 - 4 .50 {mIU/L} [facility] [email or web address] [facility]. VITAMIN D,25-OH,TOTAL,IA 30 ng/mL Normal 30 - 100 ng/mL [facility] [employer] [facility]. FECAL GLOBIN BY IMMUNOCHEMIS Fatuma 10-04-2023 FECAL GLOBIN BY IMMUNOCHEMISTRY SEE NOTE Abnormal [facility]. Comment on above: Order Comment: FASTI NG: UNKNOWN Result Comment: FECAL GLOBIN BY IMMUNOCHEMISTRY Micro Number: [id number] Test Status: Final Specimen Source: Not given Specimen Quality: Adequate Fecal Globin: Detected Performed By: #### [id number] [facility] [address], [address] [place] [id number] Feather Renovator: Denver Hamilton MD Laboratory - Chemistry and C hemistry - challengeon 09-15-2023 Albumin [Mass/Vol] 4.4 g/dL Normal 3.6 - 5.1 g/dL [facility] [place] [employer] [facility]. Albumin/Globulin [Mass ratio] 1.6 {ratio} Normal 1.0 - 2.5 [facility].; [employer]. ALP [Catalytic activity/Vol] 72 U/L Normal 37 - 153 U/L [facility].; [employer]. ALT [Catalytic activity/Vol] 19 U/L Normal 6 - 29 U/L [facility], [facility].; [facility], [facility]. AST [Catalytic activity/Vol] 34 U/L Normal 10 - 35 U/L [facility].; [facility], [facility]. Bilirubin [Mass/Vol] 0.6 mg/dL Normal 0.2 - 1 .2 mg/dL [facility], [facility].; [facility], [facility]. Calcium [Mass/Vol] 9.9 mg/dL Normal 8.6 - 10. 4 mg/dL [facility], [facility].; [facility], [facility]. Chloride [Moles/Vol] 103 mmol/L Normal 98 - 11 0 mmol/L [facility], [facility].; [facility], [facility]. Cholesterol [Mass/Vol] 252 mg/dL Abnormal [facility].; [facility], [facility] Cholesterol in HDL [Mass/Vol] 77 mg/dL Normal [facility].; [facility], [facility]. Cholesterol in LDL [Mass/Vol] 160 mg/dL Abnormal [facility].; [facility], [facility]. CO2 [Moles/Vol] 30 mmol/L Normal 20 - 32 mmol/L [facility], [facility].; [facility], [facility]. Creatinine [Mass/Vol] 0.74 mg/dL Normal 0.50 - 1.05 mg/dL [facility], [facility].; [facility], [facility]. GFR/1.73 sq M.predicted among non-blacks MDRD (S/P/Bld) [Vol rate/Area] 90 mL/min/{1.73_m2} Normal [facility], [facility].; [facility] Glucose [Mass/Vol] 85 mg/dL Normal 65 - 99 mg/dL [facility].; [facility], [facility]. Potassium [Moles/Vol] 4.2 mmol/L Normal 3.5 - 5.3 mmol/L [facility], [facility].; [facility] Protein [Mass/Vol] 7.1 g/dL Normal 6.1 - 8.1 g/dL [facility], [facility].; [facility] Sodium [Moles/Vol] 140 mmol/L Normal 135 - 146 mmol/L [facility].; [employer]. Triglyceride [Mass/Vol] 57 mg/dL Normal [facility] [place] [employer] [facility]. Urea nitrogen [Mass/Vol] 17 mg/dL Normal 7 - 25 mg/dL [facility].; [place] [employer]. No Panel Informationon 09-15 BUN/CREATININE RATIO SEE NOTE: Normal 6 - 22 [facility].; [place] [employer] [facility] Center[facility]. CHOL/HDLC RATIO 3.3 Normal [facility]; [facility] GLOBULIN 2.7 Normal 1.9 - 3.7 [facility] [place] [employer] [facility] NON HDL CHOLESTEROL 175 Abnormal [facility] [employer]. No Panel Informationon [id number] SEE NOTE Normal [facility].; [employer]. CLINICAL INFORMATION: SEE NOTE Normal [facility].; [facility] [employer] BANKING ANALYST: SEE NOTE Normal [facility].; [employer]. HPV mRNA E6/E7 Not detected Normal [facility]; [employer]. INTERPRETATION/RESULT: SEE NOTE Normal [facility].; [employer]. LMP: SEE NOTE Normal [facility].; [employer]. PREV. BX: SEE NOTE Normal [facility].; [employer]. PREV. PAP: SEE NOTE Normal [facility].; [employer]. SOURCE: SEE NOTE Normal [facility].; [employer]. STATEMENT OF ADEQUACY: SEE NOTE Normal [facility].; [place]. Laboratory - Chemistry and C hemistry - challengeon 02-08-2022 Albumin [Mass/Vol] 4.3 g/dL Normal 3.6 - 5.1 g/dL [facility].; [employer]. Albumin/Globulin [Mass ratio] 1.7 {ratio} Normal 1.0 - 2.5 [facility].; [facility], [facility]. ALP [Catalytic activity/Vol] 81 U/L Normal 37 - 153 U/L [facility], [facility].; [facility], [facility]. ALT [Catalytic activity/Vol] 17 U/L Normal 6 - 29 U/L [facility], [facility].; [facility], [facility]. AST [Catalytic activity/Vol] 23 U/L Normal 10 - 35 U/L [facility], [facility].; [facility], [facility]. Bilirubin [Mass/Vol] 0.3 mg/dL Normal 0.2 - 1 .2 mg/dL [facility], [facility].; [facility], [facility]. Calcium [Mass/Vol] 9.4 mg/dL Normal 8.6 - 10. 4 mg/dL [facility], [facility].; [facility], [facility]. Chloride [Moles/Vol] 103 mmol/L Normal 98 - 11 0 mmol/L [facility], [facility].; [facility], [facility]. Cholesterol [Mass/Vol] 214 mg/dL Abnormal [facility].; [facility], [facility]. Cholesterol in HDL [Mass/Vol] 76 mg/dL Normal [facility], [facility].; [facility], [facility]. Cholesterol in LDL [Mass/Vol] 124 mg/dL Abnormal [facility], [facility].; [facility], [facility]. CO2 [Moles/Vol] 28 mmol/L Normal 20 - 32 mmol/L [facility], [facility].; [facility], [facility]. Creatinine [Mass/Vol] 0.77 mg/dL Normal 0.50 - 0.99 mg/dL [facility], [facility].; [facility], [facility]. GFR/1.73 sq M.predicted among blacks MDRD (S/P/Bld) [Vol rate/Area] 95 mL/min/{1.73_m2} Normal [facility], [facility].; [facility] Glucose [Mass/Vol] 85 mg/dL Normal 65 - 99 mg/dL [facility].; [facility] Potassium [Moles/Vol] 4.9 mmol/L Normal 3.5 - 5.3 mmol/L [facility], [facility].; [facility], [facility] Protein [Mass/Vol] 6.8 g/dL Normal 6.1 - 8.1 g/dL [facility]; [facility] Sodium [Moles/Vol] 140 mmol/L Normal 135 - 146 mmol/L [facility].; [facility] Triglyceride [Mass/Vol] 47 mg/dL Normal [facility]; [facility] Urea nitrogen [Mass/Vol] 15 mg/dL Normal 7 - 25 mg/dL [facility]; [facility] No Panel Informationon 02-08 BUN/CREATININE RATIO NOT APPLICABLE Normal 6 - 22 [facility]; [facility] CHOL/HDLC RATIO 2.8 Normal [facility]; [facility] eGFR NON-AFR. MAURITANIAN 82 Normal [facility]; [facility] GLOBULIN 2.5 Normal 1.9 - 3.7 [facility]; [facility] NON HDL CHOLESTEROL 138 Abnormal [facility]; [place] [employer] [facility] No Panel Informationon 04-19 FECAL GLOBIN BY IMMUNOCHEMISTRY SEE NOTE Normal [facility]; [facility] Laboratory - Chemistry and C hemistry - challengeon 10-14-2020 Albumin [Mass/Vol] 4.4 g/dL Normal 3.6 - 5.1 g/dL [facility]; [facility] Albumin/Globulin [Mass ratio] 1.7 {ratio} Normal 1.0 - 2.5 [facility]; [place] [employer] [facility] ALP [Catalytic activity/Vol] 71 U/L Normal 37 - 153 U/L [facility] ALT [Catalytic activity/Vol] 20 U/L Normal 6 - 29 U/L [facility].; [place] [employer] [facility] AST [Catalytic activity/Vol] 23 U/L Normal 10 - 35 U/L [facility].; [place] [employer] [facility] Bilirubin [Mass/Vol] 0.4 mg/dL Normal 0.2 - 1 .2 mg/dL [facility].; [facility], [facility] Calcium [Mass/Vol] 9.6 mg/dL Normal 8.6 - 10. 4 mg/dL [facility].; [facility], [facility] Chloride [Moles/Vol] 103 mmol/L Normal 98 - 11 0 mmol/L [facility], [facility].; [facility], [facility] Cholesterol [Mass/Vol] 217 mg/dL Abnormal [facility]; [facility], [facility] Cholesterol in HDL [Mass/Vol] 71 mg/dL Normal [facility]; [facility], [facility] Cholesterol in LDL [Mass/Vol] 131 mg/dL Abnormal [facility]; [facility], [facility] CO2 [Moles/Vol] 32 mmol/L Normal 20 - 32 mmol/L [facility]; [facility], [facility] Creatinine [Mass/Vol] 0.73 mg/dL Normal 0.50 - 0.99 mg/dL [facility].; [facility], [facility]. GFR/1.73 sq M.predicted among blacks MDRD (S/P/Bld) [Vol rate/Area] 102 mL/min/{1.73_m2} Normal [facility].; [facility], [facility] Glucose [Mass/Vol] 87 mg/dL Normal 65 - 99 mg/dL [facility].; [facility], [facility] Potassium [Moles/Vol] 4.3 mmol/L Normal 3.5 - 5.3 mmol/L [facility], [facility].; [facility], [facility]. Protein [Mass/Vol] 7.0 g/dL Normal 6.1 - 8.1 g/dL [facility], [facility].; [facility], [facility]. Sodium [Moles/Vol] 140 mmol/L Normal 135 - 146 mmol/L [facility], [facility].; [facility], [facility]. Triglyceride [Mass/Vol] 59 mg/dL Normal [facility], [facility], [facility] Urea nitrogen [Mass/Vol] 14 mg/dL Normal 7 - 25 mg/dL [facility]; [place] [employer] [facility] No Panel Informationon 10-14 BUN/CREATININE RATIO NOT APPLICABLE Normal 6 - 22 [facility]; [place] [employer] [facility] CHOL/HDLC RATIO 3.1 Normal [facility]; [facility] eGFR NON-AFR. MAURITANIAN 88 Normal [facility]; [facility] GLOBULIN 2.6 Normal 1.9 - 3.7 [facility]; [facility] NON HDL CHOLESTEROL 146 Abnormal [facility]; [place] [email or web address] [facility] Laboratoryon 01-23-2019 Lower GI hemoglobin IA Ql (Stl) Not detected Normal [facility] [place] [employer] [facility] Laboratory - Microbiology an d Antimicrobial susceptibilityon 10-25-2018 Bacteria identified Cx Nom (Unsp spec) SEE NOTE Normal [facility]; [facility] Laboratory - Specimen inform ationon 10-25-2018 Specimen source Nom (Unsp spec) GENITAL-VAGINAL Normal [facility] [email or web address] [facility] Laboratory - Chemistry and C hemistry - challengeon 10-09-2018 Albumin [Mass/Vol] 4.0 g/dL Normal 3.6 - 5.1 g/dL [facility]; [email or web address] [email or web address] [facility] Albumin/Globulin [Mass ratio] 1.5 {ratio} Normal 1.0 - 2.5 [facility]; [place] [employer] [facility] ALP [Catalytic activity/Vol] 92 U/L Normal 33 - 130 U/L [facility] [email or web address] [facility]. ALT [Catalytic activity/Vol] 19 U/L Normal 6 - 29 U/L [facility] [place] [employer] [facility] AST [Catalytic activity/Vol] 20 U/L Normal 10 - 35 U/L [facility] [email or web address] [facility]. Bilirubin [Mass/Vol] 0.3 mg/dL Normal 0.2 - 1 .2 mg/dL [facility] [email or web address] [email or web address] [facility] Calcium [Mass/Vol] 9.2 mg/dL Normal 8.6 - 10. 4 mg/dL [facility], [facility].; [facility], [facility]. Chloride [Moles/Vol] 104 mmol/L Normal 98 - 11 0 mmol/L [facility], [facility].; [facility] Cholesterol [Mass/Vol] 161 mg/dL Normal [facility], [facility].; [facility], [facility] Cholesterol in HDL [Mass/Vol] 51 mg/dL Normal [facility], [facility].; [facility], [facility]. Cholesterol in LDL [Mass/Vol] 96 mg/dL Normal 0 - 100 mg/dL [facility], [facility].; [facility], [facility]. Cholesterol non HDL [Mass/Vol] 110 mg/dL Normal [facility], [facility].; [facility], [facility]. Cholesterol.total/Chol esterol in HDL [Mass ratio] 3.2 {ratio} Normal [facility], [facility].; [facility], [facility]. CO2 [Moles/Vol] 28 mmol/L Normal 20 - 32 mmol/L [facility], [facility].; [facility], [facility]. Creatinine [Mass/Vol] 0.66 mg/dL Normal 0.50 - 0.99 mg/dL [facility], [facility].; [facility], [facility]. GFR/1.73 sq M.predicted among blacks MDRD (S/P/Bld) [Vol rate/Area] 111 {ML/MIN/1.73M2} Normal [facility], [facility].; [facility], [facility]. GFR/1.73 sq M.predicted MDRD (S/P/Bld) [Vol rate/Area] 96 {ML/MIN/1.73M2} Normal [facility], [facility].; [facility], [facility]. Globulin (S) [Mass/Vol] 2.7 g/dL Normal 1.9 - 3.7 g/dL [facility], [facility].; [facility] Glucose [Mass/Vol] 90 mg/dL Normal 65 - 99 mg/dL [facility], [facility].; [facility] Potassium [Moles/Vol] 4.8 mmol/L Normal 3.5 - 5.3 mmol/L [facility], [facility].; [facility], [facility]. Protein [Mass/Vol] 6.7 g/dL Normal 6.1 - 8.1 g/dL [facility], [facility].; [facility], [facility]. Sodium [Moles/Vol] 141 mmol/L Normal 135 - 146 mmol/L [facility], [facility].; [facility], [facility]. Triglyceride [Mass/Vol] 46 mg/dL Normal [facility].; [facility], [facility] Urea nitrogen [Mass/Vol] 14 mg/dL Normal 7 - 25 mg/dL [facility].; [facility], [facility] Urea nitrogen/Creatinine [Mass ratio] 20.5 mg/mg Normal 6 - 22 [facility].; [place] [employer] [facility], [facility] Laboratoryon 11-21-2017 Lower GI hemoglobin IA Ql (Stl) Not detected Normal [facility] [place] [employer] [facility], [facility]. Laboratory - Chemistry and C hemistry - challengeon 11-14-2017 Albumin [Mass/Vol] 4.4 g/dL Normal 3.4 - 4.8 g/dL [facility].; [facility], [facility]. Albumin [Mass/Vol] 1.6 g/dL Normal 0.9 - 1.6 [facility].; [facility], [facility]. ALP [Catalytic activity/Vol] 81 U/L Normal 38 - 126 U/L [facility].; [place] [employer] [facility], [facility]. ALT [Catalytic activity/Vol] 21 U/L Normal 8 - 35 U/L [facility].; [facility], [facility]. ALT No additional P-5'-P [Catalytic activity/Vol] 21 U/L Normal 8 - 35 U/L [facility].; [place] [employer] [facility], [facility]. Anion gap [Moles/Vol] 13 mmol/L Normal 10 - 2 0 mmol/L [facility].; [place] [employer] [facility], [facility]. AST [Catalytic activity/Vol] 27 U/L Normal 13 - 39 U/L [facility], [facility].; [place], [facility]. Bilirubin [Mass/Vol] 0.5 mg/dL Normal 0.0 - 1 .5 mg/dL [facility].; [facility] Calcium [Mass/Vol] 9.6 mg/dL Normal 8.6 - 10. 2 mg/dL [facility].; [facility], [facility] Chloride [Moles/Vol] 101 mmol/L Normal 98 - 10 7 mmol/L [facility].; [facility], [facility] Cholesterol [Mass/Vol] 217 mg/dL Abnormal 0 - 200 mg/dL [facility].; [facility], [facility] Cholesterol in HDL [Mass or moles/Vol] 77 mg/dL Abnormal 40 - 60 mg/dL [facility].; [facility], [facility] Cholesterol in LDL [Mass/Vol] 131 mg/dL Abnormal 0 - 129 mg/dL [facility].; [facility], [facility] Cholesterol.total/Chol esterol in HDL [Mass ratio] 2.8 {ratio} Normal 0.0 - 5.0 [facility].; [facility], [facility] CO2 [Moles/Vol] 31.0 mmol/L Normal 21.0 - 31.0 mmol/L [facility].; [facility], [facility]. Comprehensive metabolic 2000 panel CMP with eGFR Normal [facility].; [facility], [facility] Creatinine [Mass/Vol] 0.8 mg/dL Normal 0.6 - 1.2 mg/dL [facility], [facility].; [facility], [facility]. GFR/1.73 sq M.predicted among blacks MDRD (S/P/Bld) [Vol rate/Area] mL/min/{1.73_m2} Normal 60 - 999 {ML/MINUTE} [facility], [facility].; [facility], [facility]. GFR/1.73 sq M.predicted MDRD (S/P/Bld) [Vol rate/Area] mL/min/{1.73_m2} Normal 60 - 999 {ML/MINUTE} [facility], [facility].; [facility], [facility]. Globulin (S) [Mass/Vol] 2.8 g/dL Normal 1.5 - 3.8 g/dL [facility], [facility].; [facility], [facility]. Glucose [Mass/Vol] 81 mg/dL Normal 74 - 106 mg/dL [facility].; [employer] Lipid 1996 panel LIPID PROFILE Normal [facility].; [facility] Potassium [Moles/Vol] 4.6 mmol/L Normal 3.5 - 5.1 mmol/L [facility].; [employer] Protein [Mass/Vol] 7.2 g/dL Normal 6.4 - 8.3 g/dL [facility].; [employer] Sodium [Moles/Vol] 140 mmol/L Normal 136 - 145 mmol/L [facility].; [employer] Triglyceride [Mass/Vol] 47 mg/dL Normal 0 - 150 mg/dL [facility].; [employer]. Urea nitrogen [Mass/Vol] 13 mg/dL Normal 6 - 20 mg/dL [facility].; [employer]. Urea nitrogen/Creatinine [Mass ratio] 16 {ratio} Normal 0 - 30 {ratio} [facility].; [facility]. No Panel Informationon 11-14 AGE 57 {years} Normal [facility] [employer] No Panel Informationon 11-17 PANEL NAME THIN PREP (QU) HPV DNA-HIGH RISK Normal [facility]; [facility]. Laboratory - Chemistry and C hemistry - challengeon 11-11-2016 Albumin [Mass/Vol] 4.4 g/dL Normal 3.4 - 4.8 g/dL [facility] [employer] Albumin [Mass/Vol] 1.8 g/dL Abnormal 0.9 - 1.6 [facility].; [facility] [employer]. ALP [Catalytic activity/Vol] 70 U/L Normal 38 - 126 U/L [facility].; [employer]. ALT [Catalytic activity/Vol] 23 U/L Normal 8 - 35 U/L [facility].; [employer]. ALT No additional P-5'-P [Catalytic activity/Vol] 23 U/L Normal 8 - 35 U/L [facility].; [facility], [facility] Anion gap [Moles/Vol] 11 mmol/L Normal 10 - 2 0 mmol/L [facility]; [facility]. AST [Catalytic activity/Vol] 29 U/L Normal 13 - 39 U/L [facility]; [facility], [facility] Bilirubin [Mass/Vol] 0.6 mg/dL Normal 0.0 - 1 .5 mg/dL [facility]; [facility], [facility] Calcium [Mass/Vol] 9.6 mg/dL Normal 8.6 - 10. 2 mg/dL [facility]; [facility], [facility] Chloride [Moles/Vol] 103 mmol/L Normal 98 - 10 7 mmol/L [facility]; [facility], [facility] Cholesterol [Mass/Vol] 214 mg/dL Abnormal 0 - 200 mg/dL [facility]; [facility], [facility] Cholesterol in HDL [Mass or moles/Vol] 74 mg/dL Abnormal 40 - 60 mg/dL [facility]; [facility], [facility] Cholesterol in LDL [Mass/Vol] 131 mg/dL Abnormal 0 - 129 mg/dL [facility]; [facility], [facility]. Cholesterol.total/Chol esterol in HDL [Mass ratio] 2.9 {ratio} Normal 0.0 - 5.0 [facility]; [facility], [facility] CO2 [Moles/Vol] 31.0 mmol/L Normal 21.0 - 31.0 mmol/L [facility].; [facility], [facility]. Comprehensive metabolic 2000 panel CMP with eGFR Normal [facility]; [facility], [facility] Creatinine [Mass/Vol] 0.8 mg/dL Normal 0.6 - 1.2 mg/dL [facility]; [facility], [facility]. GFR/1.73 sq M.predicted among blacks MDRD (S/P/Bld) [Vol rate/Area] mL/min/{1.73_m2} Normal 60 - 999 {ML/MINUTE} [facility].; [facility]. GFR/1.73 sq M.predicted MDRD (S/P/Bld) [Vol rate/Area] mL/min/{1.73_m2} Normal 60 - 999 {ML/MINUTE} [facility].; [facility], [facility] Globulin (S) [Mass/Vol] 2.4 g/dL Normal 1.5 - 3.8 g/dL [facility].; [place] [employer] [facility] Glucose [Mass/Vol] 95 mg/dL Normal 74 - 106 mg/dL [facility].; [employer]. Lipid 1996 panel LIPID PROFILE Normal [facility].; [place] [employer] [facility] CenterRocket[facility] Games Potassium [Moles/Vol] 4.2 mmol/L Normal 3.5 - 5.1 mmol/L [facility].; [place] [employer] [facility] CenterRocket[facility] Games Protein [Mass/Vol] 6.8 g/dL Normal 6.4 - 8.3 g/dL [facility].; [employer]. Sodium [Moles/Vol] 141 mmol/L Normal 136 - 145 mmol/L [facility].; [employer]. Triglyceride [Mass/Vol] 45 mg/dL Normal 0 - 150 mg/dL [facility].; [employer]. Urea nitrogen [Mass/Vol] 16 mg/dL Normal 6 - 20 mg/dL [facility].; [employer] Urea nitrogen/Creatinine [Mass ratio] 20 {ratio} Normal 0 - 30 {ratio} [facility].; [facility] [employer] [facility] No Panel Informationon 11-11 AGE 56 {years} Normal [place] [employer] [facility] Center[facility].; [facility] [employer]. Laboratoryon 10-06-2016 Lower GI hemoglobin IA Ql (Stl) Not detected Normal [employer].; [facility] [employer]. Work Phone: Laboratoryon 12-16-2015 Lower GI hemoglobin IA Ql (Stl) Not detected Normal [employer].; [facility] [employer]. Work Phone: Laboratoryon 11-25-2015 Lower GI hemoglobin IA Ql (Stl) Detected Abnormal [facility].; [facility], [facility] Laboratory - Chemistry and C hemistry - challengeon 10-21-2015 Anion gap [Moles/Vol] 7 mmol/L Abnormal 10 - 2 0 mmol/L [facility].; [facility], [facility]. Basic metabolic 2000 panel BMP with eGFR Normal [facility].; [facility], [facility] Calcium [Mass/Vol] 9.2 mg/dL Normal 8.6 - 10. 2 mg/dL [facility].; [facility], [facility] Chloride [Moles/Vol] 103 mmol/L Normal 98 - 10 7 mmol/L [facility].; [facility], [facility] Cholesterol [Mass/Vol] 167 mg/dL Normal 0 - 200 mg/dL [facility].; [facility], [facility]. Cholesterol in HDL [Mass or moles/Vol] 54 mg/dL Normal 40 - 60 mg/dL [facility].; [facility], [facility]. Cholesterol in LDL [Mass/Vol] 102 mg/dL Normal 0 - 129 mg/dL [facility].; [facility], [facility]. Cholesterol.total/Chol esterol in HDL [Mass ratio] 3.1 {ratio} Normal 0.0 - 5.0 [facility]; [facility], [facility]. CO2 [Moles/Vol] 31.0 mmol/L Abnormal 13.0 - 29.0 mmol/L [facility], [facility].; [facility], [facility]. Creatinine [Mass/Vol] 0.8 mg/dL Normal 0.6 - 1.2 mg/dL [facility], [facility].; [facility], [facility]. GFR/1.73 sq M.predicted among blacks MDRD (S/P/Bld) [Vol rate/Area] mL/min/{1.73_m2} Normal 60 - 999 {ML/MINUTE} [facility], [facility].; [facility], [facility]. GFR/1.73 sq M.predicted MDRD (S/P/Bld) [Vol rate/Area] mL/min/{1.73_m2} Normal 60 - 999 {ML/MINUTE} [facility].; [facility], [facility]. Glucose [Mass/Vol] 90 mg/dL Normal 74 - 106 mg/dL [facility], [facility].; [facility], [facility] Lipid 1996 panel LIPID PROFILE Normal [facility].; [facility], [facility] Potassium [Moles/Vol] 4.2 mmol/L Normal 3.5 - 5.1 mmol/L [facility].; [facility], [facility] Sodium [Moles/Vol] 137 mmol/L Normal 136 - 145 mmol/L [facility], [facility].; [facility], [facility]. Triglyceride [Mass/Vol] 54 mg/dL Normal 0 - 150 mg/dL [facility], [facility].; [facility], [facility] Urea nitrogen [Mass/Vol] 11 mg/dL Normal 6 - 20 mg/dL [facility], [facility].; [facility], [facility] No Panel Informationon 10-21 AGE 55 {years} Normal [facility].; [facility], [facility] Laboratory - Chemistry and C hemistry - challengeon 10-14-2014 Basic metabolic 2000 panel BMP with eGFR Normal [facility].; [facility], [facility] Calcium [Mass/Vol] 9.6 mg/dL Normal 8.6 - 10. 2 mg/dL [facility], [facility].; [facility], [facility]. Chloride [Moles/Vol] 102 mmol/L Normal 98 - 10 7 mmol/L [facility], [facility].; [facility], [facility]. Cholesterol [Mass/Vol] 206 mg/dL Abnormal 0 - 200 mg/dL [facility], [facility].; [facility], [facility]. Cholesterol in HDL [Mass or moles/Vol] 65 mg/dL Abnormal 40 - 60 mg/dL [facility], [facility].; [facility], [facility]. Cholesterol in LDL [Mass/Vol] 131 mg/dL Abnormal 0 - 129 mg/dL [facility], [facility].; [facility], [facility]. Cholesterol.total/Chol esterol in HDL [Mass ratio] 3.2 {ratio} Normal 0.0 - 5.0 [facility].; [facility], [facility] CO2 [Moles/Vol] 32.0 mmol/L Abnormal 13.0 - 29.0 mmol/L [facility].; [place] Creatinine [Mass/Vol] 0.9 mg/dL Normal 0.6 - 1.2 mg/dL [facility].; [place] [employer] [facility] GFR/1.73 sq M.predicted among blacks MDRD (S/P/Bld) [Vol rate/Area] mL/min/{1.73_m2} Normal 60 - 999 {ML/MINUTE} [facility].; [place] [employer] [facility], [facility]. GFR/1.73 sq M.predicted MDRD (S/P/Bld) [Vol rate/Area] mL/min/{1.73_m2} Normal 60 - 999 {ML/MINUTE} [facility], [facility].; [place] [employer], [employer] Glucose [Mass/Vol] 89 mg/dL Normal 74 - 106 mg/dL [facility].; [employer], [employer]. Lipid 1996 panel LIPID PROFILE Normal [facility].; [place] [employer], [employer] Potassium [Moles/Vol] 4.2 mmol/L Normal 3.5 - 5.1 mmol/L [facility].; [employer], [employer]. Sodium [Moles/Vol] 140 mmol/L Normal 136 - 145 mmol/L [place] [employer] [facility], [facility].; [employer] Triglyceride [Mass/Vol] 50 mg/dL Normal 0 - 150 mg/dL [facility], [facility].; [employer], [employer] Urea nitrogen [Mass/Vol] 16 mg/dL Normal 6 - 20 mg/dL [place] [employer] [facility] Center[facility].; [employer], [employer] No Panel Informationon 10-14 AGE 54 {years} Normal [place] [employer] [facility] CenterUp[facility].; [employer], [employer]. Laboratoryon 05-23-2014 Lower GI hemoglobin IA Ql (Stl) Not detected Normal [employer].; [employer] Work Phone: Laboratory - Chemistry and C hemistry - challengeon 10-23-2013 Cholesterol [Mass/Vol] 214 mg/dL Abnormal 125 - 200 mg/dL [employer].; [employer] Cholesterol in HDL [Mass/Vol] 64 mg/dL Normal [facility].; [place] [employer] [facility] CenterR[facility]. Cholesterol in LDL [Mass/Vol] 137 mg/dL Abnormal [facility].; [place] [employer] [facility]. Cholesterol non HDL [Mass/Vol] 151 mg/dL Normal [facility].; [employer]. Cholesterol.total/Chol esterol in HDL [Mass ratio] 3.3 {ratio} Normal [facility].; [employer]. Triglyceride [Mass/Vol] 63 mg/dL Normal [place] [employer] [facility] Center[facility].; [facility] [employer]. Laboratory - Microbiology an d Antimicrobial susceptibilityon 08-20-2013 S. pyogenes Ag EIA Ql (Throat) Negative Normal [place] [employer] [facility] [place] [employer] [facility], [employer]. Laboratory - Chemistry and C hemistry - challengeon 01-06-2013 Calcium [Mass/Vol] 10.1 mg/dL Normal 8.6 - 10. 4 mg/dL [facility].; [employer]. Chloride [Moles/Vol] 103 mmol/L Normal 98 - 11 0 mmol/L [place] [employer] [facility] Center[facility].; [employer], [employer]. Cholesterol [Mass/Vol] 198 mg/dL Normal 125 - 200 mg/dL [place] [employer] [facility] Center[facility].; [employer], [facility]. Cholesterol in HDL [Mass/Vol] 66 mg/dL Normal [place] [employer] [facility] Center[facility].; [place], [employer]. Cholesterol in LDL [Mass/Vol] 119 mg/dL Normal [place] [employer] [facility].; [facility] [employer]. Cholesterol non HDL [Mass/Vol] 132 mg/dL Normal [place] [employer] [facility].; [employer] [facility]. Cholesterol.total/Chol esterol in HDL [Mass ratio] 3.0 {ratio} Normal [place] [employer] [facility].; [facility] [employer]. CO2 [Moles/Vol] 29 mmol/L Normal 19 - 30 mmol/L [place] [employer] [facility].; [employer], [employer]. Creatinine [Mass/Vol] 0.84 mg/dL Normal 0.50 - 1.05 mg/dL [place] [employer] [facility] Center[facility].; [employer], [employer]. GFR/1.73 sq M.predicted among blacks MDRD (S/P/Bld) [Vol rate/Area] 91 {ML/MIN/1.73M2} Normal [facility].; [facility], [facility] GFR/1.73 sq M.predicted MDRD (S/P/Bld) [Vol rate/Area] 79 {ML/MIN/1.73M2} Normal [facility], [facility].; [facility], [facility] Glucose [Mass/Vol] 91 mg/dL Normal 65 - 99 mg/dL [facility].; [facility], [facility] Potassium [Moles/Vol] 4.6 mmol/L Normal 3.5 - 5.3 mmol/L [facility]; [facility], [facility] Sodium [Moles/Vol] 141 mmol/L Normal 135 - 146 mmol/L [facility], [facility], [facility] Triglyceride [Mass/Vol] 63 mg/dL Normal [facility]; [facility], [facility] Urea nitrogen [Mass/Vol] 11 mg/dL Normal 7 - 25 mg/dL [facility]; [facility], [facility] Urea nitrogen/Creatinine [Mass ratio] 12.5 mg/mg Normal 6 - 22 [facility]; [place] [employer] [facility], [facility] Laboratoryon 12-31-2012 Lower GI hemoglobin IA Ql (Stl) Not detected Normal [facility]; [place] [employer] [facility], [facility] Work Phone: Laboratory - Chemistry and C hemistry - challengeon 11-24-2012 TSH Qn 1.88 m[IU]/L Normal 0.40 - 4.50 {mIU/L} [facility]; [place] [employer] [facility], [facility] Laboratory - Cytologyon 07-08 Microscopic observation Cyto stain Nom (Cvx) SEE NOTE Normal [facility].; [facility], [facility] Laboratory - Chemistry and C hemistry - challengeon 07-26-2012 Cholesterol [Mass/Vol] 228 mg/dL Abnormal 125 - 200 mg/dL [facility].; [employer], [facility] Cholesterol in HDL [Mass/Vol] 79 mg/dL Normal [facility].; [employer], [employer]. Cholesterol in LDL [Mass/Vol] 140 mg/dL Abnormal [facility] [employer] [facility].; [employer], [employer]. Cholesterol non HDL [Mass/Vol] 149 mg/dL Normal [facility].; [employer], [employer]. Cholesterol.total/Chol esterol in HDL [Mass ratio] 2.9 {ratio} Normal [facility].; [employer], [employer]. Triglyceride [Mass/Vol] 44 mg/dL Normal [place] [employer] [facility].; [employer], [employer]. Laboratoryon 09-14-2011 Lower GI hemoglobin IA Ql (Stl) Not detected Normal [place] [employer] [facility].; [employer], [employer]. Laboratory - Cytologyon 07-06 Microscopic observation Cyto stain Nom (Cvx) SEE NOTE Normal [employer].; [employer], [employer]. Laboratory - Chemistry and C hemistry - challengeon 07-14-2011 Calcium [Mass/Vol] 9.9 mg/dL Normal 8.6 - 10. 2 mg/dL [facility].; [employer], [employer]. Chloride [Moles/Vol] 106 mmol/L Normal 98 - 11 0 mmol/L [place] [employer] [facility] CenterUp[facility].; [employer], [employer]. Cholesterol [Mass/Vol] 203 mg/dL Abnormal 125 - 200 mg/dL [place] [employer], [facility].; [employer], [employer]. Cholesterol in HDL [Mass/Vol] 73 mg/dL Normal [place] [employer] [facility].; [employer], [employer]. Cholesterol in LDL [Mass/Vol] 120 mg/dL Normal [place] [employer] [facility].; [employer], [employer]. Cholesterol.total/Chol esterol in HDL [Mass ratio] 2.8 {ratio} Normal [place] [employer] [facility].; [employer], [employer]. CO2 [Moles/Vol] 26 mmol/L Normal 21 - 33 mmol/L [place] [employer] [facility].; [employer], [employer] Creatinine [Mass/Vol] 0.79 mg/dL Normal 0.60 - 1.10 mg/dL [facility], [facility].; [employer], [employer]. GFR/1.73 sq M.predicted among blacks MDRD (S/P/Bld) [Vol rate/Area] 99 {ML/MIN/1.73M2} Normal [facility].; [facility]. GFR/1.73 sq M.predicted MDRD (S/P/Bld) [Vol rate/Area] 85 {ML/MIN/1.73M2} Normal [facility], [facility].; [facility], [facility]. Glucose [Mass/Vol] 93 mg/dL Normal 65 - 99 mg/dL [facility].; [facility], [facility]. Potassium [Moles/Vol] 4.4 mmol/L Normal 3.5 - 5.3 mmol/L [facility].; [facility] Sodium [Moles/Vol] 141 mmol/L Normal 135 - 146 mmol/L [facility]; [facility]. Triglyceride [Mass/Vol] 52 mg/dL Normal [facility]; [facility] Urea nitrogen [Mass/Vol] 10 mg/dL Normal 7 - 25 mg/dL [facility].; [place] [employer] [facility]. Urea nitrogen/Creatinine [Mass ratio] 13.2 mg/mg Normal 6 - 22 [facility].; [place] [employer] [facility]. Vital Signs Date Time Vital Sign Value Performing Clinician Facility 06-10-2025 10:04-040 Body height 157.[address] Mignon Manzo DO Work Phone: [facility] 06-10-2025 10:04-0400 Body mass index (BMI) [Ratio] 20.2 kg/m2 Dr. Mignon Manzo DO Work Phone: [facility] 06-10-2025 10:04-040 Body weight 50.[address] Mignon Manzo DO Work Phone: [facility] 06-10-2025 10:04-0400 Diastolic blood pressure 90 mm[Hg] Dr. Mignon Manzo DO Work Phone: [facility] 06-10-2025 10:04-0400 Systolic blood pressure 148 mm[Hg] Dr. Mignon Manzo DO Work Phone: [facility] 09-26-2024 09:31-0500 Body height 157.48 cm Doris Iraheta [facility].; [employer] [facility] 09-26-2024 09:31-0500 Body mass index (BMI) [Ratio] 22.06 kg/m2 [facility] [employer] 09-26-2024 09:31-0500 Body surface area Derived from formula 1.54 m2 [facility] [employer] [facility], [facility].; [employer] 09-26-2024 09:31-0500 Body weight 54.7 kg Doris Myrtle [facility].; [employer] 09-26-2024 09:31-0500 Diastolic blood pressure 85 mm[Hg] [facility] [employer] [facility], [facility].; [employer] Comment on above: Patient Position: Sitting; Cuff Location : Left Arm; Cuff Size: Standard 09-26-2024 09:31-0500 Heart rate 64 /min [facility] [employer] [facility], [facility].; [employer] Comment on above: Pattern: Regular 09-26-2024 09:31-0500 Systolic blood pressure 137 mm[Hg] Doris Myrtle [place] [employer] [facility], [facility].; [employer] Comment on above: Patient Position: Sitting; Cuff Location : Left Arm; Cuff Size: Standard 09-21-2023 08:20-0500 Body height 157.48 cm Johanna Keyes [employer]ING [employer] [facility], [facility].; [employer] 09-21-2023 08:20-0500 Body mass index (BMI) [Ratio] 23.05 kg/m2 Johanna Keyes LPN [employer].; [employer] 09-21-2023 08:20-0500 Body surface area Derived from formula 1.57 m2 Johanna Keyes LPN [place] [employer] [facility], [facility].; [employer] 09-21-2023 08:20-0500 Body weight 57.15 kg Johanna Brookegene COLBY [facility], [facility].; [employer]. 09-21-2023 08:20-0500 Diastolic blood pressure 81 mm[Hg] Johanna Guadalupe Stephy LPN [facility], [facility].; [employer]. Comment on above: Patient Position: Sitting; Cuff Location : Left Arm; Cuff Size: Standard 09-21-2023 08:20-0500 Heart rate 66 /min Johanna Guadalupe Stephy COLBY [facility], [employer].; [employer]. Comment on above: Pattern: Regular 09-21-2023 08:20-0500 Systolic blood pressure 125 mm[Hg] Johanna Keyes EARNESTINE [place] [employer] [facility] [facility] [employer].; [facility]. Comment on above: Patient Position: Sitting; Cuff Location : Left Arm; Cuff Size: Standard 02-15-2022 08:08-0400 Body height 157.48 cm Sindhu Almodovar MA [facility], [facility].; [employer] [facility]. 02-15-2022 08:08-0400 Body mass index (BMI) [Ratio] 22.86 kg/m2 Sindhu Almodovar MA [facility], [facility].; [facility] [employer]. 02-15-2022 08:08-0400 Body surface area Derived from formula 1.57 m2 Sindhu Almodovar MA [facility], [facility].; [employer] [facility]. 02-15-2022 08:08-0400 Body weight 56.7 kg Sindhu Almodovar MA [facility], [facility].; [facility] [employer]. 02-15-2022 08:08-0400 Diastolic blood pressure 83 mm[Hg] Sindhu Almodovar MA [place] [employer] [facility].; [facility] [employer]. Comment on above: Patient Position: Sitting; Cuff Location : Left Arm; Cuff Size: Standard 02-15-2022 08:08-0400 Heart rate 69 /min Sindhu Almodovar MA [place] [employer] [facility], [employer].; [facility] [employer]. Comment on above: Pattern: Regular 02-15-2022 08:08-0400 Systolic blood pressure 132 mm[Hg] Sindhu Almodovar MA [place] [employer] [facility] Center[facility].; [facility] Comment on above: Patient Position: Sitting; Cuff Location : Left Arm; Cuff Size: Standard 10-23-2020 08:23-0500 Body height 157.48 cm Johanna Leoslabach [facility], Inc.; [employer] 10-23-2020 08:23-0500 Body mass index (BMI) [Ratio] 23.41 kg/m2 Johanna Brookeach [facility] [employer] [facility], Inc.; [employer] 10-23-2020 08:23-0500 Body surface area Derived from formula 1.58 m2 Johanna Leoslabach [facility] [employer] [facility], Inc.; [employer], [employer]. 10-23-2020 08:23-0500 Body weight 58.06 kg Johanna Keyes [facility] [employer] [facility], Inc.; [employer], [employer]. 10-23-2020 08:23-0500 Diastolic blood pressure 77 mm[Hg] Johanna Keyes [facility] [employer] [facility], Inc.; [employer], [employer]. Comment on above: Patient Position: Sitting; Cuff Location : Left Arm; Cuff Size: Standard 10-23-2020 08:23-0500 Heart rate 80 /min Johanna Brookeach [facility] [employer] [facility], Inc.; [employer], [employer]. Comment on above: Pattern: Regular 10-23-2020 08:23-0500 Systolic blood pressure 130 mm[Hg] Johanna Brookeach [facility] [employer] [facility], Inc.; [employer]. Comment on above: Patient Position: Sitting; Cuff Location : Left Arm; Cuff Size: Standard 11-27-2018 12:52-0400 Body height 157.48 cm Christina Terrell [employer]OTT[employer]ING LAT[employer]ER [employer] [facility], Inc.; [employer]. 11-27-2018 12:52-0400 Body mass index (BMI) [Ratio] 21.4 kg/m2 Christina Ordaz Nidhi [employer]ING LAT[employer]ER [employer] [facility], Inc.; [employer], [employer]. 11-27-2018 12:52-0400 Body surface area Derived from formula 1.52 m2 Christina Ordaz Nidhi [employer]OTT[employer] T[employer]ING LATHE T[employer]ER [place] [employer] [facility], Inc.; [employer]. 11-27-2018 12:52-0400 Body temperature 101.3 [degF] Christina Terrell [facility], Inc.; [employer]. Comment on above: Method: Tympanic 11-27-2018 12:52-0400 Body weight 53.07 kg Christina Terrell LPN [place] [employer] [facility], Inc.; [employer] 11-27-2018 12:52-0400 Diastolic blood pressure 86 mm[Hg] Christina Terrell [facility] [employer] [facility], Inc.; [employer]. Comment on above: Patient Position: Sitting; Cuff Location : Left Arm; Cuff Size: Large 11-27-2018 12:52-0400 Heart rate 89 /min Christina Terrell [facility], Inc.; [employer]. Comment on above: Pattern: Regular 11-27-2018 12:52-0400 Inhaled oxygen concentration 20 % Christina Terrell [facility] [employer] [facility], Inc.; [employer]. Comment on above: Room air 11-27-2018 12:52-0400 Inhaled oxygen concentration 21 % Christina Terrell [facility] [employer] [facility], Inc.; [employer]. Comment on above: Room air 11-27-2018 12:52-0400 SaO2% (BldA) [Mass fraction] 98 % Christina Terrell [facility] [employer] [facility], Inc.; [employer]. 11-27-2018 12:52-0400 Systolic blood pressure 133 mm[Hg] Christina Terrell [facility] [employer] [facility], Inc.; [employer]. Comment on above: Patient Position: Sitting; Cuff Location : Left Arm; Cuff Size: Large 10-25-2018 14:39-0500 Body height 157.48 cm Ros Iqbal LPN [place] [employer] [facility], [employer].; [employer]. 10-25-2018 14:39-0500 Body mass index (BMI) [Ratio] 21.95 kg/m2 Ros Iqbal LPN [place] [employer] [facility], Inc.; [employer]. 10-25-2018 14:39-0500 Body surface area Derived from formula 1.54 m2 Ros Iqbal EARNE[employer]INE [employer], [employer].; [employer], [employer]. 10-25-2018 14:39-0500 Body weight 54.43 kg Ros Iqbal [employer]ING LATHE [employer]ER [employer], Inc.; [employer], Inc. 10-25-2018 14:39-0500 Diastolic blood pressure 89 mm[Hg] Ros Iqbal [employer]ER [employer], [employer].; [employer], [employer]. Comment on above: Patient Position: Sitting; Cuff Location : Left Arm; Cuff Size: Standard 10-25-2018 14:39-0500 Heart rate 75 /min Ros Iqbal [employer]ING [employer]ER [employer].; [employer], [employer]. Comment on above: Pattern: Regular 10-25-2018 14:39-0500 Systolic blood pressure 134 mm[Hg] Ros Iqbal [employer]ING LAT[employer]ER [employer].; [employer], [employer]. Comment on above: Patient Position: Sitting; Cuff Location : Left Arm; Cuff Size: Standard 11-18-2017 09:11-0400 Body height 157.48 cm Neyarelise Cindy Hale [facility] [employer], [employer].; [employer], [employer] 11-18-2017 09:11-0400 Body mass index (BMI) [Ratio] 21.95 kg/m2 Neyarelise Cindy Hale [employer]ER [employer].; [employer], [employer] 11-18-2017 09:11-0400 Body surface area Derived from formula 1.54 m2 Neyarelise Cindy Hale [employer]OTT[employer]ING [employer]ER [employer].; [employer], [employer] 11-18-2017 09:11-0400 Body weight 54.43 kg Neyarelise Cindy Hale [employer]ER [employer], [employer].; [employer], [employer]. 11-18-2017 09:11-0400 Diastolic blood pressure 76 mm[Hg] Neilee L Vess [employer]ING LAT[employer]ER [employer].; [employer], [employer]. Comment on above: Patient Position: Sitting; Cuff Location : Left Arm; Cuff Size: Standard 11-18-2017 09:11-0400 Heart rate 76 /min Neilee L Vess [employer]ING LAT[employer]ER [employer].; [employer]. Comment on above: Pattern: Regular 11-18-2017 09:11-0400 Systolic blood pressure 116 mm[Hg] Kun Hale LPN [facility].; [employer]. Comment on above: Patient Position: Sitting; Cuff Location : Left Arm; Cuff Size: Standard 11-17-2016 09:53-0400 Body height 160.02 cm Mireya Vicente Abraham PA-C Work Phone: [employer].; [employer]. 11-17-2016 09:53-0400 Body mass index (BMI) [Ratio] 23.03 kg/m2 Mireya Vicente Abraham PA-C Work Phone: [employer].; [employer]. 11-17-2016 09:53-0400 Body surface area Derived from formula 1.61 m2 Mireya J Abraham PA-C Work Phone: [employer].; [employer]. 11-17-2016 09:53-0400 Body weight 58.97 kg Mireya Jules Abraham PA-C Work Phone: [employer].; [employer]. 11-17-2016 09:53-0400 Diastolic blood pressure 74 mm[Hg] Mireya Jules Abraham PA-C Work Phone: [employer].; [employer]. Comment on above: Patient Position: Sitting; Cuff Location : Left Arm; Cuff Size: Standard 11-17-2016 09:53-0400 Heart rate 72 /min Mireya Jules Abraham PA-C Work Phone: [employer].; [employer]. Comment on above: Pattern: Regular 11-17-2016 09:53-0400 Systolic blood pressure 112 mm[Hg] Mireya J Abraham PA-C Work Phone: [employer].; [employer]. Comment on above: Patient Position: Sitting; Cuff Location : Left Arm; Cuff Size: Standard 10-28-2015 08:43-0500 Body height 160.02 cm Carrol Castillo LPN Work Phone: [employer]; [employer]. 10-28-2015 08:43-0500 Body mass index (BMI) [Ratio] 21.26 kg/m2 Carrol Castillo LPN Work Phone: [employer]; [employer]. 10-28-2015 08:43-0500 Body surface area Derived from formula 1.56 m2 Carrol Castillo [employer]ING LAT[employer] T[employer]ER Work Phone: [employer]; [employer]. 10-28-2015 08:43-0500 Body weight 54.43 kg Carrol Castillo LPN Work Phone: [employer]; [employer]. 10-28-2015 08:43-0500 Diastolic blood pressure 81 mm[Hg] Carrol Castillo LPN Work Phone: [employer]; [employer]. Comment on above: Patient Position: Sitting; Cuff Location : Left Arm; Cuff Size: Standard 10-28-2015 08:43-0500 Heart rate 64 /min Carrol Castillo LPN Work Phone: [employer]; [employer]. Comment on above: Pattern: Regular 10-28-2015 08:43-0500 Systolic blood pressure 123 mm[Hg] Carrol Castillo LPN Work Phone: [employer]; [employer]. Comment on above: Patient Position: Sitting; Cuff Location : Left Arm; Cuff Size: Standard 04-28-2015 08:30-0400 Body height 160.02 cm Mireya Abraham PA-C Work Phone: [employer]; [employer]. 04-28-2015 08:30-0400 Body mass index (BMI) [Ratio] 21.43 kg/m2 Mireya Abraham PA-C Work Phone: [employer]; [employer]. 04-28-2015 08:30-0400 Body surface area Derived from formula 1.56 m2 Mireya Abraahm PA-C Work Phone: [employer]; [employer]. 04-28-2015 08:30-0400 Body temperature 97.4 [degF] Mireya Abraham PA-C Work Phone: [employer]; [employer]. Comment on above: Method: Tympanic 04-28-2015 08:30-0400 Body weight 54.89 kg Mireya Pastorer PA-C Work Phone: [employer]; [employer]. 04-28-2015 08:30-0400 Diastolic blood pressure 80 mm[Hg] Mireya Abraham PA-C Work Phone: [employer]; [employer]. Comment on above: Patient Position: Sitting; Cuff Location : Left Arm; Cuff Size: Standard 04-28-2015 08:30-0400 Heart rate 70 /min Mireya Pastorer PA-C Work Phone: [employer]; [employer]. Comment on above: Pattern: Regular 04-28-2015 08:30-0400 Systolic blood pressure 116 mm[Hg] Mireya Pastorer PA-C Work Phone: [employer]; [employer]. Comment on above: Patient Position: Sitting; Cuff Location : Left Arm; Cuff Size: Standard 11-01-2014 09:06-0500 Body height 158.75 cm Celestina Thomas RN Work Phone: [employer].; [employer]. 11-01-2014 09:06-0500 Body mass index (BMI) [Ratio] 21.24 kg/m2 Celestina Thomas RN Work Phone: [employer].; [employer]. 11-01-2014 09:06-0500 Body surface area Derived from formula 1.54 m2 Celestina Thomas RN Work Phone: [employer].; [employer]. 11-01-2014 09:06-0500 Body weight 53.52 kg Celestina Thomas RN Work Phone: [facility].; [employer]. 11-01-2014 09:06-0500 Diastolic blood pressure 77 mm[Hg] Celestina Thomas RN Work Phone: [facility] [employer].; [employer]. Comment on above: Patient Position: Sitting; Cuff Location : Right Arm; Cuff Size: Standard 11-01-2014 09:06-0500 Heart rate 63 /min Celestina Thomas RN Work Phone: [facility] [employer].; [employer]. Comment on above: Pattern: Regular 11-01-2014 09:06-0500 Systolic blood pressure 119 mm[Hg] Celestina Thomas RN Work Phone: [facility] [employer].; [employer]. Comment on above: Patient Position: Sitting; Cuff Location : Right Arm; Cuff Size: Standard 04-22-2014 08:04-0400 Body height 158.75 cm Celestina Thomas RN Work Phone: [facility] [employer].; [employer]. 04-22-2014 08:04-0400 Body mass index (BMI) [Ratio] 22.32 kg/m2 Celestina Thomas RN Work Phone: [facility] [employer].; [employer]. 04-22-2014 08:04-0400 Body surface area Derived from formula 1.57 m2 Celestina Thomas RN Work Phone: [facility] [employer].; [employer]. 04-22-2014 08:04-0400 Body weight 56.25 kg Celestina Thomas RN Work Phone: [facility].; [employer]. 04-22-2014 08:04-0400 Diastolic blood pressure 75 mm[Hg] Celestina Thomas RN Work Phone: [facility].; [employer]. Comment on above: Patient Position: Sitting; Cuff Location : Right Arm; Cuff Size: Standard 04-22-2014 08:04-0400 Heart rate 65 /min Celestina Thomas RN Work Phone: [employer].; [employer]. Comment on above: Pattern: Regular 04-22-2014 08:04-0400 Systolic blood pressure 128 mm[Hg] Celestina Thomas RN Work Phone: [facility] [employer].; [employer]. Comment on above: Patient Position: Sitting; Cuff Location : Right Arm; Cuff Size: Standard 10-30-2013 08:39-0500 Body height 158.12 cm Celestina Thomas RN Work Phone: [facility] [employer].; [employer]. 10-30-2013 08:39-0500 Body mass index (BMI) [Ratio] 21.77 kg/m2 Celestina Thomas RN Work Phone: [facility] [employer].; [employer]. 10-30-2013 08:39-0500 Body surface area Derived from formula 1.54 m2 Celestina Thomas RN Work Phone: [employer].; [employer]. 10-30-2013 08:39-0500 Body weight 54.43 kg Celestina Thomas RN Work Phone: [facility].; [employer]. 10-30-2013 08:39-0500 Diastolic blood pressure 84 mm[Hg] Celestina Thomas RN Work Phone: [facility].; [employer]. Comment on above: Patient Position: Sitting; Cuff Location : Left Arm; Cuff Size: Standard 10-30-2013 08:39-0500 Heart rate 76 /min Celestina Thomas RN Work Phone: [employer].; [employer]. Comment on above: Pattern: Regular 10-30-2013 08:39-0500 Systolic blood pressure 137 mm[Hg] Celestina Thomas RN Work Phone: [employer].; [employer]. Comment on above: Patient Position: Sitting; Cuff Location : Left Arm; Cuff Size: Standard 08-20-2013 16:37-0500 Body temperature 100.9 [degF] Johanna Andrews MD Work Phone: [facility]; [employer] Comment on above: Method: Tympanic 08-20-2013 16:37-0500 Diastolic blood pressure 86 mm[Hg] Johanna Andrews MD Work Phone: [facility] [employer]; [employer]. Comment on above: Patient Position: Sitting; Cuff Location : Left Arm; Cuff Size: Standard 08-20-2013 16:37-0500 Heart rate 100 /min Johanna Andrews MD Work Phone: [facility] [employer]; [employer]. Comment on above: Pattern: Regular 08-20-2013 16:37-0500 Inhaled oxygen concentration 20 % Johanna Andrews MD Work Phone: [email or web address] [email or web address]; [employer]. Comment on above: Room air 08-20-2013 16:37-0500 Inhaled oxygen concentration 21 % Johanna Andrews MD Work Phone: [email or web address] [email or web address]; [facility] [employer]. Comment on above: Room air 08-20-2013 16:37-0500 SaO2% (BldA) [Mass fraction] 100 % Johanna Andrews MD Work Phone: [email or web address] [email or web address]; [employer] 08-20-2013 16:37-0500 Systolic blood pressure 146 mm[Hg] Johanna Andrews MD Work Phone: [employer]; [employer]. Comment on above: Patient Position: Sitting; Cuff Location : Left Arm; Cuff Size: Standard 07-27-2013 15:03-0500 Body height 158.75 cm Johanna Keyes LPN [place] [employer] [facility] [employer]. 07-27-2013 15:03-0500 Body mass index (BMI) [Ratio] 21.24 kg/m2 Johanna Keyes LPN [facility], [facility].; [place] [employer] [facility], [facility]. 07-27-2013 15:03-0500 Body surface area Derived from formula 1.54 m2 Johanna Brookeach [employer]ING LATHE T[employer]ER [facility], [facility].; [place] [employer] [facility], Inc. 07-27-2013 15:03-0500 Body weight 53.52 kg Johanna Keyes [facility], [facility].; [place] [employer] [facility], [facility]. 07-27-2013 15:03-0500 Diastolic blood pressure 86 mm[Hg] Johanna Keyes [facility], [facility].; [employer] [facility], [employer]. Comment on above: Patient Position: Sitting; Cuff Location : Left Arm; Cuff Size: Standard 07-27-2013 15:03-0500 Heart rate 77 /min Johanna Keyes [facility], [facility].; [employer], [employer]. Comment on above: Pattern: Regular 07-27-2013 15:03-0500 Systolic blood pressure 136 mm[Hg] Johanna Keyes BOTT[employer] T[employer]ING LATHE T[employer]ER [facility], [facility].; [facility] [employer]. Comment on above: Patient Position: Sitting; Cuff Location : Left Arm; Cuff Size: Standard 03-22-2013 17:04-0400 Body height 158.75 cm Carrol Castillo BOTT[employer] TURNING LATHE TENDER Work Phone: [place] [employer] [facility] CenterR[facility].; [facility]. 03-22-2013 17:04-0400 Body mass index (BMI) [Ratio] 21.06 kg/m2 Carrol Anna BOTT[employer] TURNING LATHE TENDER Work Phone: [place] [employer] [facility] CenterR[facility].; [facility]. 03-22-2013 17:04-0400 Body surface area Derived from formula 1.53 m2 Carrol Anna BOTT[employer] T[employer]ING LATHE T[employer]ER Work Phone: [facility].; [facility] [employer]. 03-22-2013 17:04-0400 Body weight 53.07 kg Carrolmichaelle Catalany [employer]OTT[employer] T[employer]ING LATHE T[employer]ER Work Phone: [facility].; [facility] [employer] [facility]. 03-22-2013 17:04-0400 Diastolic blood pressure 96 mm[Hg] Carrol Anna BOTT[employer] T[employer]ING LATHE T[employer]ER Work Phone: [employer].; [employer]. Comment on above: Patient Position: Sitting; Cuff Location : Left Arm; Cuff Size: Standard 03-22-2013 17:04-0400 Heart rate 82 /min Carrol Castillo LPN Work Phone: [employer].; [employer]. Comment on above: Pattern: Regular 03-22-2013 17:04-0400 Systolic blood pressure 134 mm[Hg] Carrol Castillo LPN Work Phone: [employer].; [employer]. Comment on above: Patient Position: Sitting; Cuff Location : Left Arm; Cuff Size: Standard 12-21-2012 18:07-0400 Body height 158.75 cm Johanna Andrews MD Work Phone: [employer].; [employer]. 12-21-2012 18:07-0400 Body mass index (BMI) [Ratio] 22.5 kg/m2 Johanna Andrews MD Work Phone: [employer].; [employer]. 12-21-2012 18:07-0400 Body surface area Derived from formula 1.57 m2 Johanna Andrews MD Work Phone: [employer].; [employer]. 12-21-2012 18:07-0400 Body weight 56.7 kg Johanna Andrews MD Work Phone: [employer].; [employer]. 12-21-2012 18:07-0400 Diastolic blood pressure 86 mm[Hg] Johanna Andrews MD Work Phone: [employer].; [employer]. Comment on above: Patient Position: Sitting; Cuff Location : Right Arm; Cuff Size: Standard 12-21-2012 18:07-0400 Heart rate 86 /min Johanna Andrews MD Work Phone: [employer].; [employer]. Comment on above: Pattern: Regular 12-21-2012 18:07-0400 Systolic blood pressure 128 mm[Hg] Johanna Andrews MD Work Phone: [employer]; [employer]. Comment on above: Patient Position: Sitting; Cuff Location : Right Arm; Cuff Size: Standard 11-24-2012 15:14-0400 Body height 158.75 cm Johanna Andrews MD Work Phone: [facility].; [employer]. 11-24-2012 15:14-0400 Body mass index (BMI) [Ratio] 22.5 kg/m2 Johanna Andrews MD Work Phone: [employer]; [facility] [employer] [facility]. 11-24-2012 15:14-0400 Body surface area Derived from formula 1.57 m2 Johanna Andrews MD Work Phone: [employer]; [employer]. 11-24-2012 15:14-0400 Body weight 56.7 kg Johanna Andrews MD Work Phone: [facility].; [employer]. 11-24-2012 15:14-0400 Diastolic blood pressure 96 mm[Hg] Johanna Andrews MD Work Phone: [facility].; [employer]. Comment on above: Patient Position: Sitting; Cuff Location : Left Arm; Cuff Size: Standard 11-24-2012 15:14-0400 Heart rate 91 /min Johanna Andrews MD Work Phone: [facility].; [employer]. Comment on above: Pattern: Regular 11-24-2012 15:14-0400 Systolic blood pressure 144 mm[Hg] Johanna Andrews MD Work Phone: [facility].; [employer]. Comment on above: Patient Position: Sitting; Cuff Location : Left Arm; Cuff Size: Standard 08-04-2012 14:16-0500 Body height 158.75 cm Johanna Keyes LPN [facility].; [facility]. 08-04-2012 14:16-0500 Body mass index (BMI) [Ratio] 22.5 kg/m2 Johanna Guadalupe Stephy [facility] [employer] [facility].; [employer]. 08-04-2012 14:16-0500 Body surface area Derived from formula 1.57 m2 Johanna Anayeli Keyes [facility] [email or web address] [facility].; [facility] [employer]. 08-04-2012 14:16-0500 Body weight 56.7 kg [facility] [employer] [facility].; [employer]. 08-04-2012 14:16-0500 Diastolic blood pressure 87 mm[Hg] Johanna Guadalupe Stephy [facility].; [employer]. Comment on above: Patient Position: Sitting; Cuff Location : Left Arm; Cuff Size: Standard 08-04-2012 14:16-0500 Heart rate 67 /min [facility]anna [facility]ayeli [facility] [employer] [facility] CenterRocket[facility] Games.; [employer]. Comment on above: Pattern: Regular 08-04-2012 14:16-0500 Systolic blood pressure 136 mm[Hg] Johanna Anayeli Keyes LPN [facility].; [employer]. Comment on above: Patient Position: Sitting; Cuff Location : Left Arm; Cuff Size: Standard 09-27-2011 12:55-0500 Body height 157.48 cm Celestina Thomas RN Work Phone: [facility].; [employer]. 09-27-2011 12:55-0500 Body mass index (BMI) [Ratio] 23.23 kg/m2 Celestina Thomas RN Work Phone: [facility].; [employer]. 09-27-2011 12:55-0500 Body surface area Derived from formula 1.58 m2 Celestina Thomas RN Work Phone: [facility].; [employer]. 09-27-2011 12:55-0500 Body temperature 97.9 [degF] Celestina Thomas RN Work Phone: [facility].; [employer]. Comment on above: Method: Tympanic 09-27-2011 12:55-0500 Body weight 57.61 kg Celestina Thomas RN Work Phone: [facility].; [employer]. 09-27-2011 12:55-0500 Diastolic blood pressure 82 mm[Hg] Celestina Thomas RN Work Phone: [place] [employer].; [employer]. Comment on above: Patient Position: Sitting; Cuff Location : Left Arm; Cuff Size: Standard 09-27-2011 12:55-0500 Heart rate 79 /min Celestina Thomas RN Work Phone: [place] [employer].; [employer]. Comment on above: Pattern: Regular 09-27-2011 12:55-0500 Systolic blood pressure 132 mm[Hg] Celestina Thomas RN Work Phone: [facility].; [employer]. Comment on above: Patient Position: Sitting; Cuff Location : Left Arm; Cuff Size: Standard 07-19-2011 13:56-0500 Body height 157.48 cm Johanna Andrews MD Work Phone: [facility].; [employer]. 07-19-2011 13:56-0500 Body mass index (BMI) [Ratio] 22.5 kg/m2 Johanna Andrews MD Work Phone: [facility].; [facility]. 07-19-2011 13:56-0500 Body surface area Derived from formula 1.55 m2 Johanna Andrews MD Work Phone: [facility].; [facility]. 07-19-2011 13:56-0500 Body weight 55.79 kg Johanna Andrews MD Work Phone: [facility].; [facility]. 07-19-2011 13:56-0500 Diastolic blood pressure 81 mm[Hg] Johanna Andrews MD Work Phone: [facility].; [place] [employer] [facility] CenterRocket[facility] Games. Comment on above: Patient Position: Sitting; Cuff Location : Left Arm; Cuff Size: Standard 07-19-2011 13:56-0500 Heart rate 68 /min Johanna Anderws MD Work Phone: [facility].; [employer]. Comment on above: Pattern: Regular 07-19-2011 13:56-0500 Systolic blood pressure 143 mm[Hg] Johanna Andrews MD Work Phone: [facility].; [employer]. Comment on above: Patient Position: Sitting; Cuff Location : Left Arm; Cuff Size: Standard 10-03-2010 08:37-0500 Body height 157.48 cm Christina Terrell [facility], [facility].; [place] [employer], [employer]. 10-03-2010 08:37-0500 Body mass index (BMI) [Ratio] 22.68 kg/m2 KaitlynSushma Terrell [facility], [facility].; [employer] [facility], [employer]. 10-03-2010 08:37-0500 Body surface area Derived from formula 1.56 m2 KaitlynSushma Terrell [facility], [facility].; [place] [employer] [facility], [employer]. 10-03-2010 08:37-0500 Body temperature 98.4 [degF] Christina Terrell [facility], [facility].; [employer]. Comment on above: Method: Tympanic 10-03-2010 08:37-0500 Body weight 56.25 kg Christina Terrell [facility], [facility].; [employer], [employer]. 10-03-2010 08:37-0500 Diastolic blood pressure 98 mm[Hg] KaitlynSushma Terrell [facility], [facility].; [employer]. Comment on above: Patient Position: Sitting; Cuff Location : Left Arm; Cuff Size: Large 10-03-2010 08:37-0500 Heart rate 130 /min Christina Terrell [employer] [facility], [facility].; [employer]. Comment on above: Pattern: Regular 10-03-2010 08:37-0500 Inhaled oxygen concentration 20 % Christina Terrell [facility], Inc.; [place] [employer] [facility], [employer]. Comment on above: Room air 10-03-2010 08:37-0500 Inhaled oxygen concentration 21 % Christina Terrell [facility], [facility].; [place] [employer] [facility], [employer]. Comment on above: Room air 10-03-2010 08:37-0500 SaO2% (BldA) [Mass fraction] 98 % Christina Terrell [facility], [facility].; [place] [employer] [facility], Inc[facility] 10-03-2010 08:37-0500 Systolic blood pressure 143 mm[Hg] Christina Terrell [facility], [facility].; [place] [employer] [facility], [employer]. Comment on above: Patient Position: Sitting; Cuff Location : Left Arm; Cuff Size: Large 06-24-2010 08:20-0400 Body height 157.48 cm Kaitlyn Nidhi [facility], [facility].; [facility], Inc[facility] 06-24-2010 08:20-0400 Body mass index (BMI) [Ratio] 23.41 kg/m2 Christina Terrell [facility], [facility].; [place] [employer] [facility], Inc. 06-24-2010 08:20-0400 Body surface area Derived from formula 1.58 m2 [facility] Nidhi [facility], [facility].; [place] [employer] [facility], Inc. 06-24-2010 08:20-0400 Body temperature 97.5 [degF] KaitlynSushma Terrell [facility], [facility].; [place] [employer] [facility], [employer]. Comment on above: Method: Tympanic 06-24-2010 08:20-0400 Body weight 58.06 kg Christina Terrell [facility], [facility].; [place] [employer] [facility], [employer]. 06-24-2010 08:20-0400 Diastolic blood pressure 85 mm[Hg] Christina Terrell [facility], [facility].; [employer], [employer]. Comment on above: Patient Position: Sitting; Cuff Location : Left Arm; Cuff Size: Large 06-24-2010 08:20-0400 Heart rate 86 /min [facility]. Comment on above: Pattern: Regular 06-24-2010 08:20-0400 Systolic blood pressure 127 mm[Hg] Christina Terrell EARNESTINE [facility].; [facility] Comment on above: Patient Position: Sitting; Cuff Location : Left Arm; Cuff Size: Large Encounters Encounter Date Encounter Type Care Provider Facility Start: 06-28-2025 ambulatory Mignon Irvingty:[facility] Start: 06-10-[address] Mignon Manzo DO -Laboratory Specimen Work Phone: Start: 06-10-2025 ambulatory Mignon Irvingty:[facility] Start: 06-10-2025 End: 06-10-[address] Mignon Manzo DO -[facility] Work Phone: Start: 06-10-2025 End: 06-10-2025 ambulatory Mignon Manzo [facility] Start: 05-29-2025 End: 05-29-2025 ambulatory SMILAX [facility] Start: 05-17-2025 End: 05-17-2025 ambulatory [facility] Start: 05-01-2025 End: 05-01-2025 Telephone follow-up Mireya Abraham PA-C Work Phone: [facility] Start: 04-29-2025 End: 04-29-2025 Emergency department patient visit KRISHNA HECTOR [facility] Start: 09-26-2024 End: 09-26-2024 Patient encounter procedure Mireya Abraham PA-C Work Phone: [facility] Start: 09-26-2024 [facility] Start: 09-13-2024 End: 09-13-2024 ambulatory SMILAX [facility] Start: 07-30-2024 End: 07-30-2024 Orders Mireya Abraham PA-C Work Phone: [employer]. Start: 07-04-2024 End: 07-04-2024 Orders Mireya Abraham PA-C Work Phone: [employer]. Start: 10-05-2023 End: 10-05-2023 Orders Mireya Abraham PA-C Work Phone: [employer]. Start: 10-05-2023 Review Mireya Abraham PA-C Work Phone: [employer]. Start: 10-05-2023 End: 10-05-2023 Orders Mireya Abraham PA-C Work Phone: [employer]. Start: 09-21-2023 End: 09-21-2023 Patient encounter procedure Mireya Abraham PA-C Work Phone: [employer]. Start: 09-21-2023 End: 09-21-2023 Physical examination Johanna Keyes LPN [employer]. Start: 09-15-2023 End: 09-15-2023 Orders Mireya Abraham PA-C Work Phone: [employer]. Start: 09-15-2023 Review Mireya Abraham PA-C Work Phone: [employer]. Start: 07-12-2023 End: 07-14-2023 Orders Mireya Abraham PA-C Work Phone: [employer]. Start: 06-17-2023 End: 06-17-2023 Orders Mireya Abraham PA-C Work Phone: [employer]. Start: 02-15-2022 End: 02-15-2022 Periodic preventive med est patient 40-64yrs Mireya Abraham PA-C Work Phone: [employer]. Start: 02-08-2022 End: 02-08-2022 Orders Mireya Abraham PA-C Work Phone: [employer] Start: 01-15-2022 End: 01-15-2022 Orders Mireya Abraham PA-C Work Phone: [employer]. Start: 01-15-2022 End: 01-15-2022 Orders Mireya Abraham PA-C Work Phone: [employer]. Start: 10-23-2020 End: 10-23-2020 Patient encounter procedure Mireya Abraham PA-C Work Phone: [employer]. Start: 10-14-2020 End: 10-15-2020 Orders Mireya Abraham PA-C Work Phone: [employer]. Start: 10-09-2020 End: 10-09-2020 Orders Mireya Abraham PA-C Work Phone: [employer] Start: 11-27-2018 End: 11-27-2018 Office outpatient visit 15 minutes Mireya Abraham PA-C Work Phone: [employer]. Start: 10-30-2018 End: 10-30-2018 Medication Mireya Abraham PA-C Work Phone: [employer]. Start: 10-25-2018 End: 10-26-2018 Periodic preventive med est patient 40-64yrs Mireya Abraham PA-C Work Phone: [employer]. Start: 09-25-2018 End: 09-25-2018 Orders Mireya Abraham PA-C Work Phone: [employer] Start: 07-03-2018 End: 07-03-2018 Nursing evaluation of patient and report Mireya Abraham PA-C Work Phone: [employer]. Start: 11-18-2017 End: 11-18-2017 Periodic preventive med est patient 40-64yrs Mireya Abraham PA-C Work Phone: [employer] Start: 11-14-2017 End: 11-14-2017 Orders Mireya Abraham PA-C Work Phone: [employer]. Start: 10-14-2017 End: 10-14-2017 Orders Mireya Abraham PA-C Work Phone: [employer]. Start: 08-25-2017 End: 08-25-2017 Orders Mireya Abraham PA-C Work Phone: [employer]. Start: 06-27-2017 End: 06-27-2017 Nursing evaluation of patient and report Mireya Abraham PA-C Work Phone: [employer]. Start: 11-15-2016 End: 11-17-2016 Periodic preventive med est patient 40-64yrs Mireya Abraham PA-C Work Phone: [employer]. Start: 11-11-2016 End: 11-11-2016 Orders Mireya Abraham PA-C Work Phone: [employer]. Start: 09-27-2016 End: 09-27-2016 Orders Mireya Abraham PA-C Work Phone: [employer] Start: 06-25-2016 End: 06-25-2016 Nursing evaluation of patient and report Mireya Abraham PA-C Work Phone: [employer]. Start: 10-28-2015 End: 10-28-2015 Periodic preventive med est patient 40-64yrs Mireya Abraham PA-C Work Phone: [employer]. Start: 10-21-2015 End: 10-21-2015 Orders Mireya Abraham PA-C Work Phone: [employer]. Start: 07-07-2015 End: 07-07-2015 Nursing evaluation of patient and report Mireya Abraham PA-C Work Phone: [employer] Start: 04-28-2015 End: 04-28-2015 Office outpatient visit 15 minutes Mireya Abraham PA-C Work Phone: [employer]. Start: 11-01-2014 End: 11-01-2014 Periodic preventive med est patient 40-64yrs Mireya Abraham PA-C Work Phone: [employer]. Start: 10-14-2014 End: 10-14-2014 Orders Mireya Abraham PA-C Work Phone: [employer]. Start: 06-24-2014 End: 06-24-2014 Nursing evaluation of patient and report Mireya Abraham PA-C Work Phone: [employer]. Start: 04-22-2014 End: 04-22-2014 Office outpatient visit 15 minutes Mireya Abraham PA-C Work Phone: [employer]. Start: 10-30-2013 End: 10-30-2013 Patient encounter procedure Mireya Abraham PA-C Work Phone: [employer]. Start: 10-23-2013 End: 10-23-2013 Orders Mireya Abraham PA-C Work Phone: [employer]. Start: 10-19-2013 End: 10-19-2013 Orders Mireya Abraham PA-C Work Phone: [employer] Start: 09-20-2013 End: 09-20-2013 Orders Mireya Abraham PA-C Work Phone: [employer] Start: 08-20-2013 End: 08-20-2013 Patient encounter procedure Mireya Abraham PA-C Work Phone: [employer] Start: 07-27-2013 End: 07-27-2013 Patient encounter procedure Mireya Abraham PA-C Work Phone: [employer]. Start: 07-02-2013 End: 07-02-2013 Nursing evaluation of patient and report Mireya Abraham PA-C Work Phone: [employer] Start: 03-22-2013 End: 03-22-2013 Patient encounter procedure Mireya Abraham PA-C Work Phone: [employer]. Start: 01-06-2013 End: 01-06-2013 Orders Mireya Abraham PA-C Work Phone: [employer]. Start: 12-21-2012 End: 12-21-2012 Patient encounter procedure Mireya Abraham PA-C Work Phone: [employer]. Start: 11-24-2012 End: 11-24-2012 Patient encounter procedure Mireya Abraham PA-C Work Phone: [employer]. Start: 08-04-2012 End: 08-04-2012 Patient encounter procedure Mireya Abraham PA-C Work Phone: [employer]. Start: 07-26-2012 End: 07-26-2012 Orders Mireya Abraham PA-C Work Phone: [employer]. Start: 05-25-2012 End: 05-25-2012 Orders Mireya Abraham PA-C Work Phone: [employer]. Start: 09-27-2011 End: 09-27-2011 Patient encounter procedure Mireya Abraham PA-C Work Phone: [employer]. Start: 07-19-2011 End: 07-19-2011 Patient encounter procedure Mireya Abraham PA-C Work Phone: [employer]. Start: 07-16-2011 End: 07-16-2011 Historical Summary Mireya Abraham PA-C Work Phone: [employer]. Start: 07-14-2011 End: 07-15-2011 Orders Mireya Abraham PA-C Work Phone: [employer]. Start: 07-10-2011 End: 07-10-2011 Orders Mireya Abraham PA-C Work Phone: [employer]. Start: 06-14-2011 End: 06-14-2011 Orders Mireya Abraham PA-C Work Phone: [employer]. Start: 06-14-2011 End: 06-14-2011 Historical Summary Mireya Abraham PA-C Work Phone: [employer] Start: 10-03-2010 End: 10-03-2010 Patient encounter procedure Mireya Abraham PA-C Work Phone: [employer] Start: 06-24-2010 End: 06-24-2010 Patient encounter procedure Mireya Abraham PA-C Work Phone: [employer] Patient encounter procedure Mireya Abraham PA-C Work Phone: [employer]; [employer] Patient encounter procedure Mireya Abraham PA-C Work Phone: [employer]; [employer] Procedures Date Procedure Procedure Detail Performing Clinician Start: 04-29-2025 Urinalysis MIREYA HORAN Comment on above: Result Comment: URIN ALYSIS Performed By: #### [id number] #### [facility],[address] [place] [address] Start: 09-26-2024 End: 09-26-2024 Adv care pln/ no alt dcsn mkr docd or refusal Mireya ABRAHAMC Work Phone: Start: 09-26-2024 End: 09-26-2024 Depression screening Mireya AlatorreC Work Phone: Start: 09-26-2024 End: 09-26-2024 Falls risk assessment documented Mireya ABRAHAMC Work Phone: Start: 09-26-2024 End: 09-26-2024 PPPS, subseq visit Mireya ABRAAHM C Work Phone: Start: 09-26-2024 End: 09-26-2024 Pt falls assess docd w/o fall/injury past year Mireya ROBERTSON-C Work Phone: Start: 09-26-2024 End: 09-26-2024 Scr dep neg, no plan reqd Mireya Pastor er PA-C Work Phone: Start: 07-30-2024 End: 09-13-2024 Screening digital breast tomosynthesis bi Mireya Abraham PA-C Work Phone: Start: 10-05-2023 End: 04-12-2024 Screening digital breast tomosynthesis bi Mireya Pastorer PA-C Work Phone: Start: 09-21-2023 End: 09-21-2023 Adv care pln/ no alt dcsn mkr docd or refusal Mireya Pastorer PA-C Work Phone: Start: 09-21-2023 End: 09-21-2023 Depression screening Mireya Pastorer PA -C Work Phone: Start: 09-21-2023 End: 09-21-2023 Falls risk assessment documented Mireya Pastorer PA-C Work Phone: Start: 09-21-2023 End: 09-21-2023 Initial preventive exam Mireya Pastorer PA-C Work Phone: Start: 09-21-2023 End: 09-21-2023 Pt falls assess docd 2/> falls/fall w/injury/yr Mireya Pastorer PA-C Work Phone: Start: 09-21-2023 End: 09-21-2023 Scr dep neg, no plan reqd Mireya Pastor er PA-C Work Phone: Start: 09-21-2023 End: 09-21-2023 Screening test visual acuity quantitative bilat Mireya Pastorer PA-C Work Phone: Start: 09-15-2023 End: 09-15-2023 Lab findings surveillance Johanna mills LPN Comment on above: 85 CMP Start: 09-15-2023 End: 09-15-2023 Lipid panel results documented & reviewed oJhanna Keyes LPN Comment on above: Normal. TC 252, HDL 77, LDL 160, Trig 57 Start: 07-12-2023 End: 07-12-2023 Flu immunize order/admin FLOAT NURSE Start: 06-17-2023 End: 09-14-2023 Screening mammography bi 2-view breast inc cad Mireya Vicente Abraham PA-C Work Phone: Start: 02-15-2022 End: 02-15-2022 Depression screening Mireya Vicente Abraham PA -C Work Phone: Start: 02-15-2022 End: 02-15-2022 Scr dep neg, no plan reqd Mireya Vicente Palm er PA-C Work Phone: Start: 02-08-2022 End: 02-08-2022 Lab findings surveillance Sindhu Vega Comment on above: cmp 85 Start: 02-08-2022 End: 02-08-2022 Lipid panel results documented & reviewed Sindhu Almodovar MA Comment on above: Normal. TC 214, HDL 76, LDL 124, Trig 47 Start: 01-15-2022 End: 01-25-2022 Screening mammography bi 2-view breast inc cad Mireya Vicente Abraham PA-C Work Phone: Start: 01-03-2022 End: 01-03-2022 Screening mammography Mireya Vicente Abraham P A-C Work Phone: Comment on above: Normal. Start: 10-23-2020 End: 10-23-2020 Depression screening Mireya Vicente Abraham PA -C Work Phone: Start: 10-23-2020 End: 10-23-2020 Scr dep neg, no plan reqd Mireya Vicente Palm er PA-C Work Phone: Start: 10-23-2020 End: 10-23-2020 Removal impacted cerumen instrumentation unilat Mireya Vicente Abraham PA-C Work Phone: Start: 11-21-2017 End: 11-21-2017 Screening for malignant neoplasm of large intestine Sindhu Almodovar MA Comment on above: Normal. not detected Start: 11-18-2017 End: 11-18-2017 Body mass index documented Mireya Vicente Toribio anup PA-C Work Phone: Start: 10-14-2017 End: 10-24-2017 Screening mammography bi 2-view breast inc cad Mireya Abraham PA-C Work Phone: Start: 11-17-2016 End: 11-17-2016 Microscopic examination of cervical Papanicolaou smear Sindhu Almodovar MA Comment on above: Normal. 5 yrs Start: 10-21-2015 End: 10-30-2015 Mammogram, screening Johanna Andrews MD Work Phone: Start: 10-28-2014 End: 10-28-2014 Mammogram, screening Johanna Andrews MD Work Phone: Start: 10-30-2013 End: 11-05-2013 Us pelvic nonobstetric real-time image complete Johanna Andrews MD Work Phone: Comment on above: left ovary palpable after menopause; firm to touch but mobile; assess for pathology Start: 09-20-2013 End: 10-31-2013 Mammogram, screening Johanna Andrews MD Work Phone: Start: 08-20-2013 End: 08-20-2013 Promethazine hcl injection Johanna Andrews MD Work Phone: Start: 11-24-2012 End: 11-24-2012 Thyrotropin [Units/volume] in Serum or Plasma Sindhu Almodovar MA Comment on above: 1.88 Start: 08-04-2012 End: 08-04-2012 Microscopic examination of cervical Papanicolaou smear Johanna Keyes LPN Start: 05-25-2012 End: 08-08-2012 Mammogram, screening Johanna Andrews MD Work Phone: Start: 06-14-2011 End: 08-09-2011 Mammogram, screening Johanna Andrews MD Work Phone: Start: 07-06-2009 End: 07-06-2009 Bone density scan Sindhu Almodovar MA Comment on above: osteopenia spine and low normal hip; holding on repeat as of 2015 due to cost Lipid panel results documented & reviewed Johanna Keyes LPN Comment on above: 06/13 elevated lipoma Mireya enrique PA-C Work Phone: Comment on above: left forearm lipoma Johanna Guadalupe Quentin ch [employer] Comment on above: left forearm lipoma Doris Pennydalia Comment on above: left forearm Plan of Treatment Date Care Activity Detail Author Start: 06-10-2025 Liquid based cervical cytology screening [facility] Start: 09-26-2024 Patient encounter procedure Medical; PHYSICAL - AWV. will have labs done at hospital [employer] [facility] Start: 26-Sep-2024 09:10-05:00 JOSELITO Abraham Appointment Request [employer] Start: 07-30-2024 25 hydroxy includes fractions if performed Vitamin D, 25-Hydroxy, LC/MS/MS (40866) Start: 30-Jul-2024 Request [employer]; [employer]. Start: 07-30-2024 Assay of thyroid stimulating hormone tsh TSH W/ REFL FREE T4 (59787,61168) (89454) Start: 30-Jul-2024 Request [employer]; [employer]. Start: 07-30-2024 Blood count complete auto&auto difrntl wbc CBC, PLATELETS & AUT DIFF (F) (34332) Start: 30-Jul-2024 Request [employer]; [employer]. Start: 07-30-2024 Comprehensive metabolic panel CMP w/ GFR* (82077) Start: 30-Jul-2024 Request [employer]; [employer]. Start: 07-30-2024 Lipid panel LIPID PANEL (34533) Start: 30-Jul-2024 Request [employer]; [employer]. Start: 07-30-2024 Screening digital breast tomosynthesis bi Mammogram 3D (tomosynthesis), bilateral ([id number]) Start: 30-Jul-2024 Intent [employer]; [employer]. Start: 10-05-2023 Screening digital breast tomosynthesis bi Mammogram 3D (tomosynthesis), bilateral (54071) Start: 05-Oct-2023 Intent [employer]; [employer]. Start: 09-21-2023 Provider Instructions for Treatment K[facility] HM Issues, 50-64 female Indication: Welcome to Medicare preventive visit (Renamed from Encounter for initial preventive physical examination covered by Medicare) Start: 21-Sep-2023 Instruction Type: Provider Instructions for Treatment [employer] Start: 09-21-2023 Blood occult fecal hgb deter ia qual feces 1-3 Fecal Occult Blood Immunoassay Home Test (62457) Start: 21-Sep-2023 8:59 Request [employer] Start: 09-21-2023 Patient encounter procedure Medical; PHYSICAL - awv [employer] Start: 21-Sep-2023 8:20 JOSELITO Abraham Appointment Request [employer], [employer]. Start: 09-15-2023 Comprehensive metabolic panel CMP w/ GFR* (64039) Start: 15-Sep-2023 Request [employer] Start: 09-15-2023 Lipid panel LIPID PANEL (10697) Start: 15-Sep-2023 Request [employer] Start: 06-17-2023 Screening mammography bi 2-view breast inc cad Mammogram Bilateral Screening ([id number]) Start: 17-Jun-2023 Intent [employer] Start: 02-15-2022 Blood occult fecal hgb deter ia qual feces 1-3 Fecal Occult Blood Immunoassay Home Test ([id number]) Start: 15-Feb-2022 8:43 Request [employer] Start: 10-23-2020 Screening mammography bi 2-view breast inc cad Mammogram Bilateral Screening ([id number]) Start: 23-Oct-2020 Intent [employer] [facility] [employer] [facility] Start: 09-25-2018 Screening mammography bi 2-view breast inc cad Mammogram Bilateral Screening ([id number]) Start: 25-Sep-2018 Intent [employer] Start: 08-25-2017 Mammogram, screening Mammogram, Bilateral Screening Start: 25-Aug-2017 Intent [employer] Cytology report of Cervical or vaginal smear or scraping Cyto stain.thin prep [facility] Path report.final Dx Spec [facility] Phenergan 50 mg/ mL injection solution Ordered: 20-Aug-2013 MD Johanna Andrews [facility] Immunizations Immunization Date Immunization Notes Care Provider Joe sterling 09-26-2024 pneumococcal Conjuga te, unspecified formulation Mireya Abraham PA-C Work Phone: [employer]; [employer] 09-26-2024 Pneumococcal conjuga te, 20 valent (PCV20) Mireya Abraham PA-C Work Phone: [employer]; [employer]. Comment on above: Site: Left DeltoidVI S Given: * Pneumococcal Conjugate Vaccine (01/14/23) 07-04-2024 influenza, injectabl e, quadrivalent, preservative free Mireya Abraham PA-C Work Phone: [employer]; [employer]. Comment on above: Site: Left DeltoidVI S Given: * Influenza (Flu) Vaccine (Inactivated or Recombinant) (04/10/21) 07-12-2023 influenza, injectabl e, quadrivalent, preservative free Mireya Abraham PA-C Work Phone: [employer]; [employer]. Comment on above: Site: Left ArmVIS Gi joel: * Influenza (Flu) Vaccine (Inactivated or Recombinant) (04/10/21) 07-10-2021 influenza, injectabl e, quadrivalent, contains preservative Mireya Abraham PA-C Work Phone: [employer]; [employer] 07-03-2018 influenza, injectabl e, quadrivalent, contains preservative Mireya Abraham PA-C Work Phone: [employer]; [employer] Comment on above: Site: Left DeltoidVI S Given: * Influenza - Inactivated (04/11/15) 06-27-2017 influenza, injectabl e, quadrivalent, contains preservative Mireya Abraham PA-C Work Phone: [employer]; [employer] Comment on above: Site: Deltoid (Left) VIS Given: * Influenza - Inactivated (04/11/15) 06-25-2016 unknown vaccine or immune globulin Mireya Abraham PA-C Work Phone: [employer]; [employer]. 06-25-2016 influenza, injectabl e, quadrivalent, contains preservative Mireya Abraham PA-C Work Phone: [employer]; [employer] Comment on above: Site: Deltoid (Left) VIS Given: * Influenza - Inactivated (04/11/15) 10-28-2015 TD(adult) unspecifie d formulation Mireya Abraham PA-C Work Phone: [employer]; [employer] Comment on above: Site: Deltoid (Left) VIS Given: * Td (Tetanus, Diphtheria) (10/29/14) 07-07-2015 IMMUNIZATION ADMIN ([id number]) Mireya Abraham PA-C Work Phone: [employer]; [employer]. 07-07-2015 influenza, seasonal, injectable Mireya Abraham PA-C Work Phone: [employer]; [employer] Comment on above: Site: Deltoid (Right )VIS Given: * Inactivated Influenza (04/11/2015) 06-24-2014 influenza, seasonal, injectable Mireya Abraham PA-C Work Phone: [employer]; [employer] Comment on above: Site: Deltoid (Right )VIS Given: * Influenza, Inactivated () 06-24-2014 IMMUNIZATION ADMIN ([id number]) Mireya Abraham PA-C Work Phone: [employer]; [employer] 07-02-2013 influenza, seasonal, injectable Mireya Abraham PA-C Work Phone: [employer]; [employer]. Comment on above: Site: Deltoid (Left) VIS Given: * Inactivated Influenza Vaccine (04/15/09) * Inactivated Influenza Vaccine (03/30/11) * Influenza vaccine [id number], inactivated (03/06/2012) * VIS Given (Unspecified) 07-02-2013 IMMUNIZATION ADMIN ([id number]) Mireya Abraham PA-C Work Phone: [employer]; [employer]. 06-08-2012 influenza, seasonal, injectable Mireya Abraham PA-C Work Phone: [employer]; [employer] 06-22-2011 influenza, seasonal, injectable Mireya Abraham PA-C Work Phone: [employer]; [employer] 07-04-2006 tetanus toxoid, redu jose diphtheria toxoid, and acellular pertussis vaccine, adsorbed Mireya Abraham PA-C Work Phone: [employer]; [employer] Payers Date Payer Category Payer Medicare [id number] 2025 Medicare [id number] 2025 Unknown [id number] 2025 Self-pay 1960 Unknown [id number] 1960 Unknown [id number] 1960 Unknown [id number] .16.8 [id number] 1960 Unknown [id number] .16.8 [id number] Unknown [id number] Unknown [id number] 2.16.8 [id number] Unknown [id number] 2.16.8 [id number] Unknown [id number] 2.16.8 [id number] Social History Date Type Detail Facility Caffeine Use Caffeine Use Late [employer]; [employer] Current Work/Study Status: Current Work/Study Status: ; Retired. [employer]; [employer] Tobacco Use: Tobacco Use: ; N ever smoker. [employer]; [employer]. Start: 1960 Female [facility] Moderate Late [employer]; [employer] Work Phone: Start: 06-10-2025 Never smoked tobacco 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: Sex Female [facility] Progress note 06-10-2025 Note Date & Type Note Facility 06-10-2025 Progress note [facility] Evaluation note Note Date & Type Note Facility Evaluation note Diagnosis Onset Date Resolution Ovarian cystic mass acute Octob er 2024 9:51am [facility] Work Phone: Progress note Note Date & Type Note Facility Progress note Note Date/Time June 10, 2025 10:32am [facility] [address] [place] [address], [address] [place] [address] OFFICE VISIT Date of Service: 06/10/25 MR#: [id number] Acct: [id number] Name: BONITA FERNANDEZ Rep #: [id number] : 1960 Provider: Dr. Caryl Manzo DO Age/Sex: 65/F Location: [facility] Status: Signed Intake Vital Signs 06/10/25 10:04 Height 5 ft 2 in Weight: 110 lb 8 oz BMI 20.2 BP 148/90 H Intake Visit Reasons: Ovarian Cysts ([place]) Gang Tailer Required: No Is patient in pain?: No Allergies No Known Allergies Allergy (Unverified 06/10/25 09:56) Medications ?Medication ?Instructions ?Recorded ?Confirmed ?Type sertraline 50 mg tablet (Zoloft) 50 mg PO QDAY 5 06/10/25 History Is last menstrual period known: No Post menopausal: Yes Patient : No : No PFSH Medical History (Updated 06/10/25 @ 10:[address] Mignon Manzo, DO) Cervical polyp Anxiety Hyperlipidemia Osteopenia GERD (gastroesophageal reflux disease) Hypertension Allergies Surgical History (Updated 06/10/25 @ 10:07 by Doris Ogden) Fatty tumor S/P colonoscopy S/P tubal ligation Family History (Updated 06/10/25 @ 09:59 by Doris Ogden) Father Diabetes Heart disease CVA (cerebral vascular accident) Hypertension Grandmother Diabetes Uncle Diabetes Heart disease CVA (cerebral vascular accident) Grandfather CVA (cerebral vascular accident) Mother Hypertension Other Hodgkins lymphoma Social History (Updated 06/10/25 @ 10:04 by Doris Ogden) Smoking Status: Never smoker alcohol intake: never substance use type: does not use caffeine: Yes what type of physical activity do you participate in: walking and aerobics frequency: 3-4 times per week additional social history: -Attila HPI Ovarian Cysts ([place]) Details: BONITA FERNANDEZ is a 65 year old who presents for follow up ER visit at [facility] on may 31. She was mowing her lawn and felt sick. She then proceeded to vomit multiple times and her brought her to the ER where the only thing they could find was a small cyst on her liver and a 4 cm cystic structure posterior to the uterus of unknown origin. The endometrium is 5.2 mm with trace fluid. She denies bleeding or cramping. She has no discomfort. She can not remember when her last pap was. She is a new patient to our office and our hospital system. She states that she is feeling well now and recently had acolonoscopy that was normal. She thinks that this was all due to food poisoning from a ham that was frozen since then thawed for a week before eating. History 4 Elective abortions Hx Para 3 Spontaneous abortions Hx # Term Pregnancies Ectopic pregnancies Hx # Pregnancies Multiple births # of living children 3 Past Pregnancies Del. Date Name GA/Weeks Outcome Route Bth Weight Infant Gen Labor Lgth Anesthesia Del [facility] Provider FOB Unknown Mignon Unknown Johanna Unknown Dennise ROS Const ROS Unobtainable: All systems reviewed & are unremarkable except as noted in H Resp Resp: Reports system reviewed and no additional complaints, except as documented; Denies cough GI GI: Reports as per HPI Psych Psych: Reports system reviewed and no additional complaints, except as documented Exam Const General: cooperative, healthy appearing, comfortable and no acute distress Resp Effort & Inspection: normal respiratory effort General: bimanual renal exam normal bilaterally External Female Exam: normal appearance of the urethra Urethra: normal appearance of the urethra Speculum Exam - Vagina: normal appearance of the vagina Speculum Exam - Cervix: mass pedunculated (looks polyp like ) Bimanual Exam- Adnexa, other: normal adnexae and normal Pelvic Support: normal Skin General: no rashes or lesions noted Psych Appearance: grossly normal Speech and Movement: speech and movement normal Office Procedures Biopsy Provider Documentation A cervical polyp was identified and cleansed with betadine. The polyp was grasped with a long thomas forceps device and spun until the polyp fell off. Thiswas placed in a specimen container. No bleeding was noted. Alert Amy Yes Coding Level of Care Code Off vis,new,level 4 Diagnoses Ovarian cystic mass N83.209 Assessment and Plan Assessment and Plan (1) Ovarian cystic mass: Status: Acute Comment: however, ultrasound unsure if this is of ovarian origin- MRI ordered. Orders: Orders Biopsy Today N84.1 - Polyp of cervix uteri Plan plan to call patient with pathology of the polyp and pap done today ordering MRI to know more about the cystic pelvic structure. She denies complaints of pain or discomfort. 06/10/25 1036 <Electronically signed by Mignon Benito DO> Date _ Mignon Manzo DO Cosigner Signature: Date (if applicable) CC: ~ [facility] Work Phone: Reason for referral (narrative) Note Date & Type Note Facility Reason for referral (narrative) No reason for referral information available [facility] [employer] [facility] Work Phone: Family History No Family History Records Found Arthritis Status:Active Comments:Mother. Grandmothers Cancer Status:Active Comments:Daughte r. Hodgkins lymphoma Cerebrovascular Accident Status:Active Comment s:Father. Grandfather, uncle Diabetes Mellitus Type II Status:Active Commen ts:Father. Grandmother, uncle Gastric Ulcer Status:Active Comments:Mother. Heart Disease Status:Active Comments:Father. uncle Hypertension Status:Active Comments:Mother. Father. Sister. Hypothyroidism Status:Active Comments:Clark fox Arthritis Status:Active Comments:Mother. Grandmothers Cancer Status:Active Comments:Daughte r. Hodgkins lymphoma Cerebrovascular Accident Status:Active Comment s:Father. Grandfather, uncle Diabetes Mellitus Type II Status:Active Commen ts:Father. Grandmother, uncle Gastric Ulcer Status:Active Comments:Mother. Heart Disease Status:Active Comments:Father. uncle Hypertension Status:Active Comments:Mother. Father. Sister. Hypothyroidism Status:Active Comments:Clark fox Arthritis Status:Active Comments:Mother. Grandmothers Cancer Status:Active Comments:Daughte r. Hodgkins lymphoma Cerebrovascular Accident Status:Active Comment s:Father. Grandfather, uncle Diabetes Mellitus Type II Status:Active Commen ts:Father. Grandmother, uncle Gastric Ulcer Status:Active Comments:Mother. Heart Disease Status:Active Comments:Father. uncle Hypertension Status:Active Comments:Mother. Father. Sister. Hypothyroidism Status:Active Comments:Clark fox Arthritis Status:Active Comments:Mother. Grandmothers Cancer Status:Active Comments:Daughte r. Hodgkins lymphoma Cerebrovascular Accident Status:Active Comment s:Father. Grandfather, uncle Diabetes Mellitus Type II Status:Active Commen ts:Father. Grandmother, uncle Gastric Ulcer Status:Active Comments:Mother. Heart Disease Status:Active Comments:Father. uncle Hypertension Status:Active Comments:Mother. Father. Sister. Hypothyroidism Status:Active Comments:Clark fox Arthritis Status:Active Comments:Mother. Grandmothers Cancer Status:Active Comments:Daughte r. Hodgkins lymphoma Cerebrovascular Accident Status:Active Comment s:Father. Grandfather, uncle Diabetes Mellitus Type II Status:Active Commen ts:Father. Grandmother, uncle Gastric Ulcer Status:Active Comments:Mother. Heart Disease Status:Active Comments:Father. uncle Hypertension Status:Active Comments:Mother. Father. Sister. Hypothyroidism Status:Active Comments:Clark fox Arthritis Status:Active Comments:Mother. Grandmothers Cancer Status:Active Comments:Daughte r. Hodgkins lymphoma Cerebrovascular Accident Status:Active Comment s:Father. Grandfather, uncle Diabetes Mellitus Type II Status:Active Commen ts:Father. Grandmother, uncle Gastric Ulcer Status:Active Comments:Mother. Heart Disease Status:Active Comments:Father. uncle Hypertension Status:Active Comments:Mother. Father. Sister. Hypothyroidism Status:Active Comments:Clark fox Arthritis Status:Active Comments:Mother. Grandmothers Cancer Status:Active Comments:Daughte r. Hodgkins lymphoma Cerebrovascular Accident Status:Active Comment s:Father. Grandfather, uncle Diabetes Mellitus Type II Status:Active Commen ts:Father. Grandmother, uncle Gastric Ulcer Status:Active Comments:Mother. Heart Disease Status:Active Comments:Father. uncle Hypertension Status:Active Comments:Mother. Father. Sister. Hypothyroidism Status:Active Comments:Clark fox Arthritis Status:Active Comments:Mother. Grandmothers Cancer Status:Active Comments:Daughte r. Hodgkins lymphoma Cerebrovascular Accident Status:Active Comment s:Father. Grandfather, uncle Diabetes Mellitus Type II Status:Active Commen ts:Father. Grandmother, uncle Gastric Ulcer Status:Active Comments:Mother. Heart Disease Status:Active Comments:Father. uncle Hypertension Status:Active Comments:Mother. Father. Sister. Hypothyroidism Status:Active Comments:Clark fox Arthritis Status:Active Comments:Mother. Grandmothers Cancer Status:Active Comments:Daughte r. Hodgkins lymphoma Cerebrovascular Accident Status:Active Comment s:Father. Grandfather, uncle Diabetes Mellitus Type II Status:Active Commen ts:Father. Grandmother, uncle Gastric Ulcer Status:Active Comments:Mother. Heart Disease Status:Active Comments:Father. uncle Hypertension Status:Active Comments:Mother. Father. Sister. Hypothyroidism Status:Active Comments:Clark fox Arthritis Status:Active Comments:Mother. Grandmothers Cancer Status:Active Comments:Daughte r. Hodgkins lymphoma Cerebrovascular Accident Status:Active Comment s:Father. Grandfather, uncle Diabetes Mellitus Type II Status:Active Commen ts:Father. Grandmother, uncle Gastric Ulcer Status:Active Comments:Mother. Heart Disease Status:Active Comments:Father. uncle Hypertension Status:Active Comments:Mother. Father. Sister. Hypothyroidism Status:Active Comments:Clark fox Arthritis Status:Active Comments:Mother. Grandmothers Cancer Status:Active Comments:Daughte r. Hodgkins lymphoma Cerebrovascular Accident Status:Active Comment s:Father. Grandfather, uncle Diabetes Mellitus Type II Status:Active Commen ts:Father. Grandmother, uncle Gastric Ulcer Status:Active Comments:Mother. Heart Disease Status:Active Comments:Father. uncle Hypertension Status:Active Comments:Mother. Father. Sister. Hypothyroidism Status:Active Comments:Clark fox Arthritis Status:Active Comments:Mother. Grandmothers Cancer Status:Active Comments:Daughte r. Hodgkins lymphoma Cerebrovascular Accident Status:Active Comment s:Father. Grandfather, uncle Diabetes Mellitus Type II Status:Active Commen ts:Father. Grandmother, uncle Gastric Ulcer Status:Active Comments:Mother. Heart Disease Status:Active Comments:Father. uncle Hypertension Status:Active Comments:Mother. Father. Sister. Hypothyroidism Status:Active Comments:Clark fox Arthritis Status:Active Comments:Mother. Grandmothers Cancer Status:Active Comments:Daughte r. Hodgkins lymphoma Cerebrovascular Accident Status:Active Comment s:Father. Grandfather, uncle Diabetes Mellitus Type II Status:Active Commen ts:Father. Grandmother, uncle Gastric Ulcer Status:Active Comments:Mother. Heart Disease Status:Active Comments:Father. uncle Hypertension Status:Active Comments:Mother. Father. Sister. Hypothyroidism Status:Active Comments:Clark fox Arthritis Status:Active Comments:Mother. Grandmothers Cancer Status:Active Comments:Daughte r. Hodgkins lymphoma Cerebrovascular Accident Status:Active Comment s:Father. Grandfather, uncle Diabetes Mellitus Type II Status:Active Commen ts:Father. Grandmother, uncle Gastric Ulcer Status:Active Comments:Mother. Heart Disease Status:Active Comments:Father. uncle Hypertension Status:Active Comments:Mother. Father. Sister. Hypothyroidism Status:Active Comments:Clark fox Arthritis Status:Active Comments:Mother. Grandmothers Cancer Status:Active Comments:Daughte r. Hodgkins lymphoma Cerebrovascular Accident Status:Active Comment s:Father. Grandfather, uncle Diabetes Mellitus Type II Status:Active Commen ts:Father. Grandmother, uncle Gastric Ulcer Status:Active Comments:Mother. Heart Disease Status:Active Comments:Father. uncle Hypertension Status:Active Comments:Mother. Father. Sister. Hypothyroidism Status:Active Comments:Clark fox Arthritis Status:Active Comments:Mother. Grandmothers Cancer Status:Active Comments:Daughte r. Hodgkins lymphoma Cerebrovascular Accident Status:Active Comment s:Father. Grandfather, uncle Diabetes Mellitus Type II Status:Active Commen ts:Father. Grandmother, uncle Gastric Ulcer Status:Active Comments:Mother. Heart Disease Status:Active Comments:Father. uncle Hypertension Status:Active Comments:Mother. Father. Sister. Hypothyroidism Status:Active Comments:Clark fox Arthritis Status:Active Comments:Mother. Grandmothers Cancer Status:Active Comments:Daughte r. Hodgkins lymphoma Cerebrovascular Accident Status:Active Comment s:Father. Grandfather, uncle Diabetes Mellitus Type II Status:Active Commen ts:Father. Grandmother, uncle Gastric Ulcer Status:Active Comments:Mother. Heart Disease Status:Active Comments:Father. uncle Hypertension Status:Active Comments:Mother. Father. Sister. Hypothyroidism Status:Active Comments:Clark fox Arthritis Status:Active Comments:Mother. Grandmothers Cancer Status:Active Comments:Daughte r. Hodgkins lymphoma Cerebrovascular Accident Status:Active Comment s:Father. Grandfather, uncle Diabetes Mellitus Type II Status:Active Commen ts:Father. Grandmother, uncle Gastric Ulcer Status:Active Comments:Mother. Heart Disease Status:Active Comments:Father. uncle Hypertension Status:Active Comments:Mother. Father. Sister. Hypothyroidism Status:Active Comments:Clark fox Arthritis Status:Active Comments:Mother. Grandmothers Cancer Status:Active Comments:Daughte r. Hodgkins lymphoma Cerebrovascular Accident Status:Active Comment s:Father. Grandfather, uncle Diabetes Mellitus Type II Status:Active Commen ts:Father. Grandmother, uncle Gastric Ulcer Status:Active Comments:Mother. Heart Disease Status:Active Comments:Father. uncle Hypertension Status:Active Comments:Mother. Father. Sister. Hypothyroidism Status:Active Comments:Clark fox Arthritis Status:Active Comments:Mother. Grandmothers Cancer Status:Active Comments:Daughte r. Hodgkins lymphoma Cerebrovascular Accident Status:Active Comment s:Father. Grandfather, uncle Diabetes Mellitus Type II Status:Active Commen ts:Father. Grandmother, uncle Gastric Ulcer Status:Active Comments:Mother. Heart Disease Status:Active Comments:Father. uncle Hypertension Status:Active Comments:Mother. Father. Sister. Hypothyroidism Status:Active Comments:Clark fox Arthritis Status:Active Comments:Mother. Grandmothers Cancer Status:Active Comments:Clark fox Hodgkins lymphoma Cerebrovascular Accident Status:Active Comment s:Father. Grandfather, uncle Diabetes Mellitus Type II Status:Active Commen ts:Father. Grandmother, uncle Gastric Ulcer Status:Active Comments:Mother. Heart Disease Status:Active Comments:Father. uncle Hypertension Status:Active Comments:Mother. Father. Sister. Hypothyroidism Status:Active Comments:Clark ofx Arthritis Status:Active Comments:Mother. Grandmothers Cancer Status:Active Comments:Clark fox Hodgkins lymphoma Cerebrovascular Accident Status:Active Comment s:Father. Grandfather, uncle Diabetes Mellitus Type II Status:Active Commen ts:Father. Grandmother, uncle Gastric Ulcer Status:Active Comments:Mother. Heart Disease Status:Active Comments:Father. uncle Hypertension Status:Active Comments:Mother. Father. Sister. Hypothyroidism Status:Active Comments:Clark fox Arthritis Status:Active Comments:Mother. Grandmothers Cancer Status:Active Comments:Clark fox Hodgkins lymphoma Cerebrovascular Accident Status:Active Comment s:Father. Grandfather, uncle Diabetes Mellitus Type II Status:Active Commen ts:Father. Grandmother, uncle Gastric Ulcer Status:Active Comments:Mother. Heart Disease Status:Active Comments:Father. uncle Hypertension Status:Active Comments:Mother. Father. Sister. Hypothyroidism Status:Active Comments:Clark fox Relationship Condition Age at Onset Recorded Date/T khanh Not Specified Hodgkin lymphoma Unknown father Diabetes mellitus Unknown Cardiac disease Unknown Cerebrovascular accident (CVA) Unknown Hypertension Unknown grandmother Diabetes mellitus Unknown uncle Diabetes mellitus Unknown grandfather Cerebrovascular accident (CVA) Unknown mother Hypertension Unknown Summary Purpose Advance Directives No Advanced Directives Records FoundNo Advanced Directives Records FoundNo Advanced Directives Records FoundNo Advanced Directives Records Found Chief Complaint and Reason for Visit Chief Complaint Admit Date Ovarian Cysts ([place]) June 10, 2025 9:51am Reason for Visit Admit Date Ovarian cystic mass June 10, 2025 9: 51am Additional Source Comments INFORMATION SOURCE (unrecogn ized section and content) DATE CREATED AUTHOR 09/17/2024 [facility] DATE CREATED AUTHOR AUTHOR'S ORGANIZ ATION 09/28/2024 [facility] DATE CREATED AUTHOR AUTHOR'S ORGANIZ ATION 06/07/2025 [facility] DATE CREATED AUTHOR AUTHOR'S ORGANIZ ATION 06/27/2025 [facility] Care Teams (unrecognized sec tion and content) Team Status: Inactive Member Role/Relationship Status Dates Dr. Mignon Manzo DO Attending physician Acti ve Start: June 10, 2025 End: June 10, 2025 Team Status: Active Member Role/Relationship Status Dates Dr. Mignon Manzo DO Attending physician Acti ve Start: June 10, 2025 Goals (unrecognized section and content) Goals may be documented in a n alternate section FOR RECORDS PERTAINING TO PATIENTS WHO ARE OR HAVE BEEN ENROLLED IN A CHEMICAL DEPENDENCY/SUBSTANCEABUSE PROGRAM, SOME INFORMATION MAY BE OMITTED. This clinical summary was aggregated from multiple sources. Caution should be exercised in using it in the provision of clinical care. This summary normalizes information from multiple sources, and as a consequence, information in this document may materially change the coding, format and clinical context of patient data. In addition, data may be omitted in some cases. CLINICAL DECISIONS SHOULD BE BASED ON THE PRIMARY CLINICAL RECORDS. [employer] provides no warranty or guarantee of the accuracy or completeness of information in this document.
== END | disposition home or self-care (01) ==
LOC: US 16:13
PROVIDERS: PCP Physician Assistant; Referring Provider Obstetrics & Gynecology; Visit Provider Obstetrics & Gynecology
DX: N84.1 Polyp of cervix uteri (principal)
CPT/HCPCS: 76856